=== PATIENT | male | born 1955 | race Caucasian/White ===

== ENCOUNTER 2016-06-02 23:44 | Inpatient (IN) | payer MEDICAID ==
[~2016-06-02] VITALS: Ht 182.9 cm; Wt 97.7 kg
[~2016-06-02 23:44] MED LIST: ALPR-475; AMLO10TA2 PO; AMLO5TAB2 PO; AMOX1TAB64 PO; ASPI81TA18 PO; AZIT-14 PO; AZIT500T4 PO; BACL-19 PO; BUPR1FIL5; BUPR1FIL5 SL; BUPR1TAB2; CEFD300C2 PO; DOXY100T PO; FLUT1DIS3 INH; FOLI-17; FURO-93 PO; FURO20TA3 PO; GLIP5TAB10 PO; HYDR-3240 PO; IPRA3AMP NEB; IPRA3AMP NPPB; LISI-167 PO; LISI-424 PO; LISI20TA; LORA-445 PO; METF500T4 PO; METO-93 PO; METO25TA91; NICO1PAT5 TD; POTA20TA89 PO; PRED10TA PO; PRED20TA PO; SIMV20TA3; SULF1TAB24 PO; TIOT18CA INH; potassium
[2016-06-02] MEDS ORDERED: SODIUM CHLORIDE 0.9% 1,000 ML IV ONE (23:54)
[2016-06-03] MEDS ORDERED: SODIUM CHLORIDE FLUSH 10ML SYR IVF ONE
[2016-06-03] MEDS ORDERED: methylPREDNISolone SOD SUCC 125 MG/2 ML IVP ONE
[2016-06-03] MEDS ORDERED: MORPHINE SULFATE 4 MG/ML, 1ML IVPush PRN
[2016-06-03] MEDS ORDERED: AZITHROMYCIN 500 MG in SODIUM CHLORIDE 0.9% 250 ML IVPB ONE
[2016-06-03] MEDS ORDERED: ONDANSETRON 2MG/ML, 2ML ONE (00:09)
[2016-06-03] MEDS ORDERED: methylPREDNISolone SOD SUCC 125 MG/2 ML ONE (00:09)
[2016-06-03] MEDS ORDERED: MORPHINE SULFATE 4 MG/ML, 1ML ONE (00:09)
[2016-06-03] MEDS ORDERED: ONDANSETRON 2MG/ML, 2ML IVPush ONE (00:30)
[2016-06-03] MEDS ORDERED: ALBUTEROL/IPRATROPIUM 2.5MG/0.5MG, 3 ML ONE (00:38)
[2016-06-03] MEDS: ALBUTEROL/IPRATROPIUM 2.5MG/0.5MG, 3 ML NPPB SCH ×4 (00:42→15:00)
[2016-06-03 00:51] LABS: ASPARTATE AMINO TRANSFERASE 101 U/L (15-37); BLOOD UREA NITROGEN 12 mg/dL (7-18)
[2016-06-03 01:18] LABS: IS PT STATUS REG ER OR PRE ER? YES
[2016-06-03] MEDS ORDERED: FUROSEMIDE 40 MG/4 ML IV ONE (02:00)
[2016-06-03] MEDS: AZITHROMYCIN 500 MG in SODIUM CHLORIDE 0.9% 250 ML IV SCH (02:25)
[2016-06-03] MEDS: methylPREDNISolone SOD SUCC 125 MG/2 ML IVPush SCH ×4 (02:26→20:47)
[2016-06-03] MEDS ORDERED: ONDANSETRON 2MG/ML, 2ML IVP PRN (02:30)
[2016-06-03] MEDS ORDERED: DOCUSATE 100 MG CAPSULE PO PRN (02:30)
[2016-06-03] MEDS ORDERED: POLYETHYLENE GLYCOL 17 GM PACKET PO PRN (02:30)
[2016-06-03] MEDS ORDERED: LORazepam 2 MG/ML, 1ML IV PRN (02:30)
[2016-06-03] MEDS ORDERED: BISACODYL 10 MG SUPP PR PRN (02:30)
[2016-06-03] MEDS ORDERED: LORazepam 0.5MG TABLET PO PRN (02:30)
[2016-06-03] MEDS ORDERED: GUAIFENESIN/DM 200-20MG, 10ML UDC PO PRN (02:30)
[2016-06-03] MEDS ORDERED: LORazepam 1MG TABLET PO PRN ×4 (02:30)
[2016-06-03 04:14] VITALS: BP 134/76
[2016-06-03] MEDS: NICOTINE 21 MG/24 HR PATCH.TD24 TD SCH (04:26)
[2016-06-03 04:33] LABS: DAU SCREEN DISCLAIMER
[2016-06-03 04:43] LABS: PATH.CAST-FLAG NOT PRESENT; SPERM-FLAG NOT PRESENT; SRC-FLAG NOT PRESENT; XTAL-FLAG NOT PRESENT; YLC-FLAG NOT PRESENT
[2016-06-03 04:55] LABS: POTASSIUM,URINE RANDOM 24 mmol/L
[2016-06-03] MEDS ORDERED: ALBUTEROL/IPRATROPIUM 2.5MG/0.5MG, 3 ML NPPB PRN (06:00)
[2016-06-03] MEDS: HYDROcodone/APAP 5/325 TABLET PO PRN ×2 (06:16→23:19)
[2016-06-03 07:01] VITALS: BP 120/71
[2016-06-03 08:57] LABS: RAPID INFLUENZA A Negative (Negative); RAPID INFLUENZA B Negative (Negative)
[2016-06-03] MEDS ORDERED: BACLOFEN 10 MG TABLET PO SCH (09:00)
[2016-06-03] MEDS: SODIUM CHLORIDE FLUSH 10ML SYR IVF SCH ×2 (09:00→21:07)
[2016-06-03] MEDS: MULTIVITAMINS/MINERALS TABLET PO SCH (09:28)
[2016-06-03] MEDS: FOLIC ACID 1 MG TABLET PO SCH (09:28)
[2016-06-03] MEDS: AMLODIPINE 5 MG TABLET PO SCH (09:28)
[2016-06-03] MEDS: ASPIRIN 81 MG TABLET CHEW PO SCH (09:28)
[2016-06-03] MEDS: FAMOTIDINE 20 MG/2 ML IV SCH ×2 (09:29→20:47)
[2016-06-03] MEDS: LISINOPRIL 10 MG TABLET PO SCH ×2 (09:29→20:48)
[2016-06-03] MEDS: THIAMINE 100MG TABLET PO SCH (09:29)
[2016-06-03] MEDS: METOPROLOL SUCCINATE 50 MG TAB.ER.24H PO SCH ×2 (09:29→20:48)
[2016-06-03] MEDS: FUROSEMIDE 40 MG/4 ML IV SCH (09:29)
[2016-06-03] MEDS: LORazepam 2 MG/ML, 1ML IV PRN ×6 (10:10→23:20)
[2016-06-03 11:19] VITALS: BP 152/81
[2016-06-03] MEDS: CHLORDIAZEPOXIDE 25 MG CAPSULE PO SCH ×3 (11:48→21:07)
[2016-06-03] MEDS: FLUTICASONE/VILANTEROL 200-25MCG/INH INH SCH (11:48)
[2016-06-03 14:30] VITALS: BP 142/87
[2016-06-03 19:58] VITALS: BP 164/96
[2016-06-04] MEDS: LORazepam 2 MG/ML, 1ML IV PRN ×12 (00:31→23:33)
[2016-06-04 01:15] VITALS: BP 165/98
[2016-06-04] MEDS: ACETAMINOPHEN 325 MG TABLET PO PRN (01:19)
[2016-06-04 01:25] VITALS: BP 162/79
[2016-06-04] MEDS: NICOTINE 21 MG/24 HR PATCH.TD24 TD SCH (02:27)
[2016-06-04] MEDS: AZITHROMYCIN 500 MG in SODIUM CHLORIDE 0.9% 250 ML IV SCH (02:27)
[2016-06-04] MEDS: methylPREDNISolone SOD SUCC 125 MG/2 ML IVPush SCH ×4 (02:27→20:21)
[2016-06-04 05:20] LABS: BLOOD UREA NITROGEN 32 mg/dL (7-18)
[2016-06-04 05:25] LABS: ASPARTATE AMINO TRANSFERASE 66 U/L (15-37)
[2016-06-04] MEDS: ALBUTEROL/IPRATROPIUM 2.5MG/0.5MG, 3 ML NPPB SCH ×5 (05:30→19:36)
[2016-06-04] MEDS: HYDROcodone/APAP 5/325 TABLET PO PRN ×4 (05:44→16:26)
[2016-06-04 06:07] LABS: DIFF TOTAL CELLS COUNTED 100 CELL DIFF
[2016-06-04 06:09] LABS: VERIFY COUNTS? YES
[2016-06-04 06:10] LABS: LARGE PLATELETS 1+
[2016-06-04 08:15] VITALS: BP 165/96
[2016-06-04] MEDS: FUROSEMIDE 40 MG/4 ML IV SCH (09:00)
[2016-06-04] MEDS: MULTIVITAMINS/MINERALS TABLET PO SCH (09:00)
[2016-06-04] MEDS: ASPIRIN 81 MG TABLET CHEW PO SCH (09:00)
[2016-06-04] MEDS: FAMOTIDINE 20 MG/2 ML IV SCH ×2 (09:00→20:21)
[2016-06-04] MEDS: CHLORDIAZEPOXIDE 25 MG CAPSULE PO SCH ×3 (09:01→20:28)
[2016-06-04] MEDS: SODIUM CHLORIDE FLUSH 10ML SYR IVF SCH ×2 (09:01→20:28)
[2016-06-04] MEDS: FLUTICASONE/VILANTEROL 200-25MCG/INH INH SCH (09:01)
[2016-06-04] MEDS: FOLIC ACID 1 MG TABLET PO SCH (09:01)
[2016-06-04] MEDS: THIAMINE 100MG TABLET PO SCH (09:02)
[2016-06-04] MEDS: LISINOPRIL 10 MG TABLET PO SCH ×2 (09:02→20:28)
[2016-06-04] MEDS: AMLODIPINE 5 MG TABLET PO SCH (09:02)
[2016-06-04] MEDS: METOPROLOL SUCCINATE 50 MG TAB.ER.24H PO SCH ×2 (09:02→20:28)
[2016-06-04] MEDS ORDERED: cloniDINE 0.1MG PATCH TD SCH (14:30)
[2016-06-04 14:45] VITALS: BP 152/90
[2016-06-04 19:03] VITALS: BP 154/91
[2016-06-05 01:03] VITALS: BP 164/104
[2016-06-05] MEDS: LORazepam 2 MG/ML, 1ML IV PRN ×12 (01:17→22:45)
[2016-06-05] MEDS: AZITHROMYCIN 500 MG in SODIUM CHLORIDE 0.9% 250 ML IV SCH (02:21)
[2016-06-05] MEDS: methylPREDNISolone SOD SUCC 125 MG/2 ML IVPush SCH ×3 (02:21→16:30)
[2016-06-05] MEDS: NICOTINE 21 MG/24 HR PATCH.TD24 TD SCH (02:22)
[2016-06-05 04:00] VITALS: BP 165/112
[2016-06-05] MEDS: CHLORDIAZEPOXIDE 25 MG CAPSULE PO SCH ×4 (04:59→20:35)
[2016-06-05 05:01] LABS: BLOOD UREA NITROGEN 42 mg/dL (7-18)
[2016-06-05] MEDS: hydrALAzine 20 MG/ML, 1ML IV PRN ×2 (05:01→22:36)
[2016-06-05 05:07] LABS: ASPARTATE AMINO TRANSFERASE 45 U/L (15-37)
[2016-06-05 06:11] LABS: DIFF TOTAL CELLS COUNTED 100 CELL DIFF
[2016-06-05 06:14] LABS: VERIFY COUNTS? YES
[2016-06-05 06:20] LABS: GIANT PLATELETS 1+; LARGE PLATELETS 1+
[2016-06-05] MEDS: ALBUTEROL/IPRATROPIUM 2.5MG/0.5MG, 3 ML NPPB SCH ×4 (07:00→20:40)
[2016-06-05 07:30] VITALS: BP 149/78
[2016-06-05] MEDS: FAMOTIDINE 20 MG/2 ML IV SCH ×2 (08:13→20:35)
[2016-06-05] MEDS: FLUTICASONE/VILANTEROL 200-25MCG/INH INH SCH (08:13)
[2016-06-05] MEDS: LISINOPRIL 10 MG TABLET PO SCH ×2 (08:14→20:35)
[2016-06-05] MEDS: SODIUM CHLORIDE FLUSH 10ML SYR IVF SCH ×2 (08:14→21:00)
[2016-06-05] MEDS: AMLODIPINE 5 MG TABLET PO SCH ×2 (08:14→09:00)
[2016-06-05] MEDS: THIAMINE 100MG TABLET PO SCH ×2 (08:14→09:00)
[2016-06-05] MEDS: METOPROLOL SUCCINATE 50 MG TAB.ER.24H PO SCH ×3 (08:14→20:35)
[2016-06-05] MEDS: ASPIRIN 81 MG TABLET CHEW PO SCH ×2 (08:14→09:00)
[2016-06-05] MEDS: MULTIVITAMINS/MINERALS TABLET PO SCH ×2 (08:14→09:00)
[2016-06-05] MEDS: FOLIC ACID 1 MG TABLET PO SCH ×2 (08:14→09:00)
[2016-06-05] MEDS ORDERED: FUROSEMIDE 20 MG/2 ML IV SCH (09:00)
[2016-06-05] MEDS ORDERED: FUROSEMIDE 20 MG TABLET PO SCH (09:00)
[2016-06-05 09:08] VITALS: BP 138/80
[2016-06-05] MEDS: FOLIC ACID 1 MG, THIAMINE 100 MG, MVI ADULT 10 ML in D5%-0.9% NACL 1,000 ML IV SCH (11:09)
[2016-06-05] MEDS: HYDROcodone/APAP 5/325 TABLET PO PRN (12:24)
[2016-06-05] MEDS: GABAPENTIN 300 MG CAPSULE PO SCH ×2 (15:33→21:00)
[2016-06-05] MEDS: HALOPERIDOL 5 MG/ML IV PRN (16:30)
[2016-06-05 17:16] VITALS: BP 166/103
[2016-06-05 19:55] VITALS: BP 134/89
[2016-06-06] MEDS: LORazepam 2 MG/ML, 1ML IV PRN ×6 (00:37→05:54)
[2016-06-06] MEDS: methylPREDNISolone SOD SUCC 125 MG/2 ML IVPush SCH ×3 (00:54→15:46)
[2016-06-06] MEDS: NICOTINE 21 MG/24 HR PATCH.TD24 TD SCH (02:30)
[2016-06-06] MEDS: hydrALAzine 20 MG/ML, 1ML IV PRN ×3 (03:38→13:26)
[2016-06-06 05:20] LABS: BLOOD UREA NITROGEN 40 mg/dL (7-18)
[2016-06-06] MEDS: CHLORDIAZEPOXIDE 25 MG CAPSULE PO SCH ×5 (05:50→20:30)
[2016-06-06] MEDS: ALBUTEROL/IPRATROPIUM 2.5MG/0.5MG, 3 ML NPPB SCH ×4 (06:35→18:45)
[2016-06-06] MEDS: DIAZEPAM 5 MG/ML, 2ML IV SCH ×3 (07:33→19:45)
[2016-06-06] MEDS: HYDROcodone/APAP 5/325 TABLET PO PRN ×2 (08:17→20:21)
[2016-06-06] MEDS: AZITHROMYCIN 500 MG TABLET PO SCH (08:17)
[2016-06-06] MEDS: FOLIC ACID 1 MG TABLET PO SCH (08:17)
[2016-06-06] MEDS: PANTOPROZOLE 40MG TABLET PO SCH (08:17)
[2016-06-06] MEDS: THIAMINE 100MG TABLET PO SCH (08:17)
[2016-06-06] MEDS: GABAPENTIN 300 MG CAPSULE PO SCH ×4 (08:17→20:30)
[2016-06-06] MEDS: METOPROLOL SUCCINATE 50 MG TAB.ER.24H PO SCH ×2 (08:18→20:30)
[2016-06-06] MEDS: FLUTICASONE/VILANTEROL 200-25MCG/INH INH SCH (08:18)
[2016-06-06] MEDS: SODIUM CHLORIDE FLUSH 10ML SYR IVF SCH ×2 (08:18→20:35)
[2016-06-06] MEDS: LISINOPRIL 10 MG TABLET PO SCH ×2 (08:18→20:30)
[2016-06-06] MEDS: LACTULOSE 20 GM/30 ML UDC PO SCH (08:18)
[2016-06-06] MEDS: ASPIRIN 81 MG TABLET CHEW PO SCH (08:18)
[2016-06-06] MEDS: AMLODIPINE 5 MG TABLET PO SCH (08:20)
[2016-06-06] MEDS: MULTIVITAMINS/MINERALS TABLET PO SCH (08:20)
[2016-06-06] MEDS: FOLIC ACID 1 MG, THIAMINE 100 MG, MVI ADULT 10 ML in D5%-0.9% NACL 1,000 ML IV SCH ×2 (10:00→19:45)
[2016-06-06] MEDS: HALOPERIDOL 5 MG/ML IV PRN ×2 (10:08→16:00)
[2016-06-06] MEDS: SODIUM CHLORIDE 0.9% 1,000 ML IV SCH ×2 (10:15→19:30)
[2016-06-06] MEDS ORDERED: METOPROLOL 1 MG/ML, 5ML IVPush ONE (10:30)
[2016-06-06] MEDS: LORazepam 2 MG/ML, 1ML IVPush PRN ×5 (10:54→23:03)
[2016-06-06] MEDS: ZIPRASIDONE 20 MG INJ IM PRN ×2 (11:22→17:57)
[2016-06-06 12:29] LABS: ABG COLLECTION SITE LEFT RADIAL; COLLATERAL CIRCULATION TESTING NORMAL
[2016-06-07] MEDS: methylPREDNISolone SOD SUCC 125 MG/2 ML IVPush SCH ×3 (00:20→16:46)
[2016-06-07] MEDS: DIAZEPAM 5 MG/ML, 2ML IV SCH ×4 (02:10→19:30)
[2016-06-07] MEDS: NICOTINE 21 MG/24 HR PATCH.TD24 TD SCH (02:13)
[2016-06-07] MEDS: hydrALAzine 20 MG/ML, 1ML IV PRN (03:27)
[2016-06-07] MEDS: LORazepam 2 MG/ML, 1ML IVPush PRN (05:03)
[2016-06-07] MEDS: SODIUM CHLORIDE 0.9% 1,000 ML IV SCH ×2 (05:30→15:45)
[2016-06-07] MEDS: CHLORDIAZEPOXIDE 25 MG CAPSULE PO SCH ×2 (06:00→11:00)
[2016-06-07] MEDS: ALBUTEROL/IPRATROPIUM 2.5MG/0.5MG, 3 ML NPPB SCH ×4 (07:15→18:36)
[2016-06-07] MEDS: PANTOPROZOLE 40MG TABLET PO SCH (07:30)
[2016-06-07 08:40] LABS: ABG COLLECTION SITE RIGHT RADIAL; COLLATERAL CIRCULATION TESTING NORMAL; FIO2 70 %
[2016-06-07] MEDS: THIAMINE 100MG TABLET PO SCH (09:00)
[2016-06-07] MEDS: ASPIRIN 81 MG TABLET CHEW PO SCH (09:00)
[2016-06-07] MEDS: AZITHROMYCIN 500 MG TABLET PO SCH (09:00)
[2016-06-07] MEDS: MULTIVITAMINS/MINERALS TABLET PO SCH (09:00)
[2016-06-07] MEDS: AMLODIPINE 5 MG TABLET PO SCH (09:00)
[2016-06-07] MEDS: LACTULOSE 20 GM/30 ML UDC PO SCH (09:00)
[2016-06-07] MEDS: FOLIC ACID 1 MG TABLET PO SCH (09:00)
[2016-06-07] MEDS: FLUTICASONE/VILANTEROL 200-25MCG/INH INH SCH (09:00)
[2016-06-07] MEDS: METOPROLOL SUCCINATE 50 MG TAB.ER.24H PO SCH ×2 (09:00→21:07)
[2016-06-07] MEDS: GABAPENTIN 300 MG CAPSULE PO SCH ×3 (09:00→21:08)
[2016-06-07] MEDS: LISINOPRIL 10 MG TABLET PO SCH ×2 (09:00→21:07)
[2016-06-07] MEDS: SODIUM CHLORIDE FLUSH 10ML SYR IVF SCH ×2 (09:51→21:07)
[2016-06-07] MEDS: CHLORDIAZEPOXIDE 10 MG CAPSULE PO SCH ×2 (15:45→21:08)
[2016-06-07] MEDS: HYDROcodone/APAP 5/325 TABLET PO PRN (15:45)
[2016-06-08] MEDS: methylPREDNISolone SOD SUCC 125 MG/2 ML IVPush SCH ×3 (00:36→18:06)
[2016-06-08] MEDS: hydrALAzine 20 MG/ML, 1ML IV PRN ×4 (00:36→23:18)
[2016-06-08] MEDS: SODIUM CHLORIDE 0.9% 1,000 ML IV SCH (00:58)
[2016-06-08] MEDS: NICOTINE 21 MG/24 HR PATCH.TD24 TD SCH (02:14)
[2016-06-08] MEDS: DIAZEPAM 5 MG/ML, 2ML IV SCH ×4 (02:15→19:23)
[2016-06-08] MEDS: CHLORDIAZEPOXIDE 10 MG CAPSULE PO SCH ×4 (05:59→20:18)
[2016-06-08] MEDS: PANTOPROZOLE 40MG TABLET PO SCH (08:00)
[2016-06-08 08:53] LABS: BLOOD UREA NITROGEN 38 mg/dL (7-18)
[2016-06-08] MEDS: LACTULOSE 20 GM/30 ML UDC PO SCH (09:00)
[2016-06-08] MEDS: THIAMINE 100MG TABLET PO SCH (09:00)
[2016-06-08] MEDS: AZITHROMYCIN 500 MG TABLET PO SCH (09:00)
[2016-06-08] MEDS: ASPIRIN 81 MG TABLET CHEW PO SCH (09:00)
[2016-06-08] MEDS: MULTIVITAMINS/MINERALS TABLET PO SCH (09:00)
[2016-06-08] MEDS: SODIUM CHLORIDE FLUSH 10ML SYR IVF SCH ×2 (09:00→19:23)
[2016-06-08] MEDS: ALBUTEROL/IPRATROPIUM 2.5MG/0.5MG, 3 ML NPPB SCH ×4 (09:00→20:00)
[2016-06-08] MEDS: GABAPENTIN 300 MG CAPSULE PO SCH ×3 (09:00→20:18)
[2016-06-08] MEDS: AMLODIPINE 5 MG TABLET PO SCH (09:00)
[2016-06-08] MEDS: LISINOPRIL 10 MG TABLET PO SCH ×2 (09:00→20:18)
[2016-06-08] MEDS: FOLIC ACID 1 MG TABLET PO SCH (09:00)
[2016-06-08] MEDS: FLUTICASONE/VILANTEROL 200-25MCG/INH INH SCH (09:00)
[2016-06-08] MEDS: METOPROLOL SUCCINATE 50 MG TAB.ER.24H PO SCH ×2 (09:00→20:17)
[2016-06-08] MEDS ORDERED: MORPHINE SULFATE 4 MG/ML, 1ML IVPush PRN (20:00)
[2016-06-08] MEDS: FOLIC ACID 1 MG, THIAMINE 100 MG, MVI ADULT 10 ML in D5%-0.9% NACL 1,000 ML IV SCH (20:20)
[2016-06-08] MEDS: ENALAPRILAT 1.25 MG/ML, 2ML IV PRN (21:29)
[2016-06-08] MEDS: MORPHINE SULFATE 4 MG/ML, 1ML IVPush PRN (23:18)
[2016-06-09] MEDS: DIAZEPAM 5 MG/ML, 2ML IV SCH ×4 (00:56→20:00)
[2016-06-09] MEDS: NICOTINE 21 MG/24 HR PATCH.TD24 TD SCH (00:57)
[2016-06-09] MEDS: methylPREDNISolone SOD SUCC 125 MG/2 ML IVPush SCH ×3 (00:59→15:58)
[2016-06-09] MEDS: LABETALOL 5MG/ML, 20ML IVPush PRN ×2 (01:20→03:36)
[2016-06-09] MEDS: hydrALAzine 20 MG/ML, 1ML IV PRN ×2 (02:26→07:16)
[2016-06-09] MEDS ORDERED: MORPHINE SULFATE 4 MG/ML, 1ML IVPush ONE (02:30)
[2016-06-09] MEDS: CHLORDIAZEPOXIDE 10 MG CAPSULE PO SCH ×4 (03:25→21:24)
[2016-06-09] MEDS: MORPHINE SULFATE 4 MG/ML, 1ML IVPush PRN ×5 (03:35→20:00)
[2016-06-09] MEDS: ENALAPRILAT 1.25 MG/ML, 2ML IV PRN (06:30)
[2016-06-09] MEDS: ALBUTEROL/IPRATROPIUM 2.5MG/0.5MG, 3 ML NPPB SCH ×4 (07:00→20:00)
[2016-06-09] MEDS: FLUTICASONE/VILANTEROL 200-25MCG/INH INH SCH (07:17)
[2016-06-09] MEDS: SODIUM CHLORIDE FLUSH 10ML SYR IVF SCH ×2 (07:17→21:23)
[2016-06-09] MEDS: LISINOPRIL 10 MG TABLET PO SCH ×2 (08:56→21:24)
[2016-06-09] MEDS: THIAMINE 100MG TABLET PO SCH (08:56)
[2016-06-09] MEDS: GABAPENTIN 300 MG CAPSULE PO SCH ×3 (08:56→21:24)
[2016-06-09] MEDS: AZITHROMYCIN 500 MG TABLET PO SCH (08:56)
[2016-06-09] MEDS: FOLIC ACID 1 MG TABLET PO SCH (08:56)
[2016-06-09] MEDS: MULTIVITAMINS/MINERALS TABLET PO SCH (08:56)
[2016-06-09] MEDS: PANTOPROZOLE 40MG TABLET PO SCH (08:56)
[2016-06-09] MEDS: AMLODIPINE 5 MG TABLET PO SCH (08:56)
[2016-06-09] MEDS: ASPIRIN 81 MG TABLET CHEW PO SCH (08:56)
[2016-06-09] MEDS: METOPROLOL SUCCINATE 50 MG TAB.ER.24H PO SCH ×2 (08:57→21:24)
[2016-06-09] MEDS: LACTULOSE 20 GM/30 ML UDC PO SCH (08:57)
[2016-06-09] MEDS ORDERED: FUROSEMIDE 40 MG/4 ML IV ONE (10:00)
[2016-06-09] MEDS: HYDROcodone/APAP 5/325 TABLET PO PRN (10:33)
[2016-06-09] MEDS: FOLIC ACID 1 MG, THIAMINE 100 MG, MVI ADULT 10 ML in D5%-0.9% NACL 1,000 ML IV SCH (14:19)
[2016-06-10] MEDS: MORPHINE SULFATE 4 MG/ML, 1ML IVPush PRN ×2 (00:09→04:40)
[2016-06-10] MEDS: methylPREDNISolone SOD SUCC 125 MG/2 ML IVPush SCH ×2 (00:09→08:08)
[2016-06-10] MEDS: NICOTINE 21 MG/24 HR PATCH.TD24 TD SCH ×2 (00:34→21:00)
[2016-06-10] MEDS: DIAZEPAM 5 MG/ML, 2ML IV SCH ×2 (00:57→08:07)
[2016-06-10] MEDS: hydrALAzine 20 MG/ML, 1ML IV PRN (03:42)
[2016-06-10] MEDS: CHLORDIAZEPOXIDE 10 MG CAPSULE PO SCH ×4 (05:31→21:42)
[2016-06-10] MEDS: ALBUTEROL/IPRATROPIUM 2.5MG/0.5MG, 3 ML NPPB SCH ×4 (06:33→19:41)
[2016-06-10] MEDS: FOLIC ACID 1 MG TABLET PO SCH (08:07)
[2016-06-10] MEDS: PANTOPROZOLE 40MG TABLET PO SCH (08:07)
[2016-06-10] MEDS: ASPIRIN 81 MG TABLET CHEW PO SCH (08:07)
[2016-06-10] MEDS: FLUTICASONE/VILANTEROL 200-25MCG/INH INH SCH (08:08)
[2016-06-10] MEDS: MULTIVITAMINS/MINERALS TABLET PO SCH (08:08)
[2016-06-10] MEDS: METOPROLOL SUCCINATE 50 MG TAB.ER.24H PO SCH ×2 (08:08→21:42)
[2016-06-10] MEDS: LACTULOSE 20 GM/30 ML UDC PO SCH (08:08)
[2016-06-10] MEDS: LISINOPRIL 10 MG TABLET PO SCH ×2 (08:08→21:42)
[2016-06-10] MEDS: GABAPENTIN 300 MG CAPSULE PO SCH ×3 (08:08→21:42)
[2016-06-10] MEDS: SODIUM CHLORIDE FLUSH 10ML SYR IVF SCH ×2 (08:08→21:41)
[2016-06-10] MEDS: AMLODIPINE 5 MG TABLET PO SCH (08:10)
[2016-06-10] MEDS: HYDROcodone/APAP 5/325 TABLET PO PRN ×3 (08:31→20:06)
[2016-06-10] MEDS: THIAMINE 100MG TABLET PO SCH (08:35)
[2016-06-10] MEDS ORDERED: FUROSEMIDE 40 MG/4 ML IV ONE (09:00)
[2016-06-10 19:14] VITALS: BP 145/90
[2016-06-11 02:10] VITALS: BP 134/86
[2016-06-11] MEDS: HYDROcodone/APAP 5/325 TABLET PO PRN ×4 (03:38→23:49)
[2016-06-11] MEDS: ALBUTEROL/IPRATROPIUM 2.5MG/0.5MG, 3 ML NPPB SCH ×4 (06:10→22:00)
[2016-06-11] MEDS: CHLORDIAZEPOXIDE 10 MG CAPSULE PO SCH ×4 (06:27→23:48)
[2016-06-11 06:57] VITALS: BP 120/77
[2016-06-11] MEDS: LORazepam 2 MG/ML, 1ML IVPush PRN ×3 (07:41→23:56)
[2016-06-11] MEDS: SODIUM CHLORIDE FLUSH 10ML SYR IVF SCH ×2 (07:42→23:50)
[2016-06-11] MEDS: LACTULOSE 20 GM/30 ML UDC PO SCH (07:46)
[2016-06-11] MEDS: FOLIC ACID 1 MG TABLET PO SCH (07:46)
[2016-06-11] MEDS: LISINOPRIL 10 MG TABLET PO SCH ×2 (07:46→21:53)
[2016-06-11] MEDS: THIAMINE 100MG TABLET PO SCH (07:46)
[2016-06-11] MEDS: PANTOPROZOLE 40MG TABLET PO SCH (07:46)
[2016-06-11] MEDS: ASPIRIN 81 MG TABLET CHEW PO SCH (07:47)
[2016-06-11] MEDS: GABAPENTIN 300 MG CAPSULE PO SCH ×3 (07:47→23:48)
[2016-06-11] MEDS: MULTIVITAMINS/MINERALS TABLET PO SCH (07:47)
[2016-06-11] MEDS: AMLODIPINE 5 MG TABLET PO SCH (07:47)
[2016-06-11] MEDS: FLUTICASONE/VILANTEROL 200-25MCG/INH INH SCH (07:47)
[2016-06-11] MEDS: METOPROLOL SUCCINATE 50 MG TAB.ER.24H PO SCH ×2 (07:47→21:53)
[2016-06-11 13:53] LABS: ABG COLLECTION SITE RIGHT RADIAL; COLLATERAL CIRCULATION TESTING NORMAL
[2016-06-11 14:09] VITALS: BP 105/69
[2016-06-11] MEDS ORDERED: VANCOMYCIN PER PHARMACY MC PRN (15:00)
[2016-06-11] MEDS ORDERED: PHARMACOKINETIC MONITORING MC PRN (15:30)
[2016-06-11] MEDS ORDERED: PHARMACOKINETIC CONSULTATION MC ONE (15:30)
[2016-06-11] MEDS: PIPERACILLIN/TAZO/PMX 4.5GM 100 ML IV SCH ×2 (15:42→20:57)
[2016-06-11] MEDS: VANCOMYCIN 1,900 MG in SODIUM CHLORIDE 0.9% 250 ML IV SCH (16:24)
[2016-06-11 16:45] LABS: BLOOD UREA NITROGEN 56 mg/dL (7-18)
[2016-06-11 16:59] LABS: DIFF TOTAL CELLS COUNTED 100 CELL DIFF
[2016-06-11 17:12] LABS: VERIFY COUNTS? YES
[2016-06-11] MEDS ORDERED: FUROSEMIDE 40 MG/4 ML ONE (18:43)
[2016-06-11] MEDS ORDERED: FUROSEMIDE 40 MG/4 ML IV ONE (19:00)
[2016-06-11] MEDS ORDERED: SUCCINYLCHOLINE 20 MG/ML, 10ML IVPush ONE (20:30)
[2016-06-11] MEDS ORDERED: MIDAZOLAM 1 MG/ML, 5ML IVPush ONE (20:30)
[2016-06-11] MEDS ORDERED: MIDAZOLAM 1 MG/ML, 5ML ONE (21:00)
[2016-06-11] MEDS ORDERED: ETOMIDATE 20 MG/10 ML ONE (21:00)
[2016-06-11] MEDS ORDERED: PROPOFOL 10 MG/ML, 100ML IV ONE (21:00)
[2016-06-11] MEDS ORDERED: LIDOCAINE-MPF 1%, 2ML ENDO PRN (21:00)
[2016-06-11] MEDS ORDERED: ETOMIDATE 20 MG/10 ML IVPush ONE (21:00)
[2016-06-11] MEDS: PROPOFOL 100 ML IV PRN ×2 (21:02→23:32)
[2016-06-11] MEDS: NOREPINEPHRINE 4 MG in SODIUM CHLORIDE 0.9% 246 ML IV PRN (21:47)
[2016-06-11] MEDS: NICOTINE 21 MG/24 HR PATCH.TD24 TD SCH (23:49)
[2016-06-12] MEDS: PIPERACILLIN/TAZO/PMX 4.5GM 100 ML IV SCH ×4 (02:20→20:09)
[2016-06-12] MEDS: PROPOFOL 100 ML IV PRN ×4 (02:29→20:16)
[2016-06-12] MEDS: ALBUTEROL/IPRATROPIUM 2.5MG/0.5MG, 3 ML NPPB SCH ×6 (03:00→22:39)
[2016-06-12 04:37] VITALS: BP 108/60
[2016-06-12 05:20] LABS: ABG COLLECTION SITE LEFT RADIAL; COLLATERAL CIRCULATION TESTING NORMAL
[2016-06-12 06:30] LABS: BLOOD UREA NITROGEN 55 mg/dL (7-18)
[2016-06-12] MEDS: CHLORDIAZEPOXIDE 10 MG CAPSULE PO SCH (06:33)
[2016-06-12] MEDS: NOREPINEPHRINE 4 MG in SODIUM CHLORIDE 0.9% 246 ML IV PRN (06:46)
[2016-06-12] MEDS ORDERED: POTASSIUM CHLORIDE 10% 40 MEQ/30 ML UDC PO ONE (07:30)
[2016-06-12] MEDS: PANTOPROZOLE 40MG TABLET PO SCH (07:30)
[2016-06-12 07:34] LABS: DIFF TOTAL CELLS COUNTED 100 CELL DIFF
[2016-06-12 07:36] LABS: LARGE PLATELETS 1+
[2016-06-12 07:37] LABS: VERIFY COUNTS? YES
[2016-06-12] MEDS: FLUTICASONE/VILANTEROL 200-25MCG/INH INH SCH (08:49)
[2016-06-12] MEDS: AMLODIPINE 5 MG TABLET PO SCH (09:00)
[2016-06-12] MEDS: LACTULOSE 20 GM/30 ML UDC PO SCH (09:06)
[2016-06-12] MEDS: ASPIRIN 81 MG TABLET CHEW PO SCH (09:06)
[2016-06-12] MEDS: GABAPENTIN 300 MG CAPSULE PO SCH ×3 (09:06→20:09)
[2016-06-12] MEDS: PANTOPRAZOLE 40 MG IV IVPush SCH (09:06)
[2016-06-12] MEDS: LISINOPRIL 10 MG TABLET PO SCH ×2 (09:07→19:58)
[2016-06-12] MEDS: METOPROLOL SUCCINATE 50 MG TAB.ER.24H PO SCH ×2 (09:07→19:58)
[2016-06-12] MEDS: FOLIC ACID 1 MG TABLET PO SCH (09:07)
[2016-06-12] MEDS: MULTIVITAMINS/MINERALS TABLET PO SCH (09:07)
[2016-06-12] MEDS: SODIUM CHLORIDE FLUSH 10ML SYR IVF SCH ×2 (09:07→20:09)
[2016-06-12] MEDS: THIAMINE 100MG TABLET PO SCH (09:07)
[2016-06-12] MEDS: VANCOMYCIN 1,900 MG in SODIUM CHLORIDE 0.9% 250 ML IV SCH (10:22)
[2016-06-12] MEDS: ACETAMINOPHEN 325 MG TABLET PO PRN (12:28)
[2016-06-12] MEDS: MORPHINE SULFATE 4 MG/ML, 1ML IVPush PRN ×2 (13:50→20:06)
[2016-06-12] MEDS: NICOTINE 21 MG/24 HR PATCH.TD24 TD SCH (20:09)
[2016-06-13] MEDS: ACETAMINOPHEN 325 MG TABLET PO PRN (00:08)
[2016-06-13] MEDS: MORPHINE SULFATE 4 MG/ML, 1ML IVPush PRN ×5 (00:36→20:44)
[2016-06-13] MEDS: ALBUTEROL/IPRATROPIUM 2.5MG/0.5MG, 3 ML NPPB SCH ×6 (01:56→22:54)
[2016-06-13] MEDS: PIPERACILLIN/TAZO/PMX 4.5GM 100 ML IV SCH ×4 (03:07→20:41)
[2016-06-13 05:11] LABS: ABG COLLECTION SITE RIGHT RADIAL; COLLATERAL CIRCULATION TESTING NORMAL
[2016-06-13 06:00] VITALS: BP 110/65
[2016-06-13 06:57] LABS: DIFF TOTAL CELLS COUNTED 100 CELL DIFF
[2016-06-13 06:59] LABS: VERIFY COUNTS? YES
[2016-06-13 07:01] LABS: LARGE PLATELETS 1+
[2016-06-13 07:03] LABS: BLOOD UREA NITROGEN 52 mg/dL (7-18)
[2016-06-13] MEDS: PROPOFOL 100 ML IV PRN ×3 (07:15→21:31)
[2016-06-13] MEDS: PANTOPRAZOLE 40 MG IV IVPush SCH (08:51)
[2016-06-13] MEDS: GABAPENTIN 300 MG CAPSULE PO SCH ×3 (08:52→20:41)
[2016-06-13] MEDS: MULTIVITAMINS/MINERALS TABLET PO SCH (08:52)
[2016-06-13] MEDS: SODIUM CHLORIDE FLUSH 10ML SYR IVF SCH ×2 (08:52→21:29)
[2016-06-13] MEDS: THIAMINE 100MG TABLET PO SCH (08:52)
[2016-06-13] MEDS: FOLIC ACID 1 MG TABLET PO SCH (08:52)
[2016-06-13] MEDS: ASPIRIN 81 MG TABLET CHEW PO SCH (08:52)
[2016-06-13] MEDS: VANCOMYCIN 1,900 MG in SODIUM CHLORIDE 0.9% 250 ML IV SCH (10:35)
[2016-06-13] MEDS: NOREPINEPHRINE 4 MG in SODIUM CHLORIDE 0.9% 246 ML IV PRN (17:43)
[2016-06-13] MEDS: NICOTINE 21 MG/24 HR PATCH.TD24 TD SCH (20:42)
[2016-06-13 23:48] LABS: ABG COLLECTION SITE RIGHT BRACHIAL
[2016-06-14] MEDS: LORazepam 2 MG/ML, 1ML IVPush PRN ×2 (00:57→07:53)
[2016-06-14] MEDS: MORPHINE SULFATE 4 MG/ML, 1ML IVPush PRN ×2 (00:57→07:53)
[2016-06-14] MEDS: HYDROcodone/APAP 5/325 TABLET PO PRN ×2 (01:48→11:01)
[2016-06-14] MEDS: PROPOFOL 100 ML IV PRN ×3 (02:22→18:34)
[2016-06-14] MEDS: ALBUTEROL/IPRATROPIUM 2.5MG/0.5MG, 3 ML NPPB SCH ×6 (02:34→23:15)
[2016-06-14 04:32] LABS: ABG COLLECTION SITE RIGHT RADIAL; COLLATERAL CIRCULATION TESTING NORMAL
[2016-06-14] MEDS: PIPERACILLIN/TAZO/PMX 4.5GM 100 ML IV SCH ×4 (04:51→21:48)
[2016-06-14 08:33] LABS: BLOOD UREA NITROGEN 48 mg/dL (7-18)
[2016-06-14] MEDS: PANTOPRAZOLE 40 MG IV IVPush SCH (09:40)
[2016-06-14] MEDS: GABAPENTIN 300 MG CAPSULE PO SCH ×3 (09:40→21:47)
[2016-06-14] MEDS: ASPIRIN 81 MG TABLET CHEW PO SCH (09:40)
[2016-06-14] MEDS: SODIUM CHLORIDE FLUSH 10ML SYR IVF SCH ×2 (09:41→21:00)
[2016-06-14] MEDS: FOLIC ACID 1 MG TABLET PO SCH (09:41)
[2016-06-14] MEDS: MULTIVITAMINS/MINERALS TABLET PO SCH (09:41)
[2016-06-14] MEDS: THIAMINE 100MG TABLET PO SCH (09:41)
[2016-06-14] MEDS: VANCOMYCIN 1,900 MG in SODIUM CHLORIDE 0.9% 250 ML IV SCH (10:16)
[2016-06-14] MEDS: NICOTINE 21 MG/24 HR PATCH.TD24 TD SCH (21:48)
[2016-06-15] MEDS: ALBUTEROL/IPRATROPIUM 2.5MG/0.5MG, 3 ML NPPB SCH ×6 (01:37→22:50)
[2016-06-15] MEDS: PROPOFOL 100 ML IV PRN ×3 (02:49→16:46)
[2016-06-15] MEDS: PIPERACILLIN/TAZO/PMX 4.5GM 100 ML IV SCH ×4 (02:50→20:43)
[2016-06-15] MEDS: MORPHINE SULFATE 4 MG/ML, 1ML IVPush PRN ×4 (02:53→22:52)
[2016-06-15 04:51] LABS: ABG COLLECTION SITE RIGHT RADIAL; COLLATERAL CIRCULATION TESTING NORMAL
[2016-06-15 05:07] VITALS: BP 103/66
[2016-06-15] MEDS: SODIUM CHLORIDE FLUSH 10ML SYR IVF SCH ×2 (09:01→20:43)
[2016-06-15] MEDS: PANTOPRAZOLE 40 MG IV IVPush SCH (09:01)
[2016-06-15] MEDS: ASPIRIN 81 MG TABLET CHEW PO SCH (09:02)
[2016-06-15] MEDS: FOLIC ACID 1 MG TABLET PO SCH (09:02)
[2016-06-15] MEDS: GABAPENTIN 300 MG CAPSULE PO SCH ×3 (09:02→20:43)
[2016-06-15] MEDS: THIAMINE 100MG TABLET PO SCH (09:03)
[2016-06-15] MEDS: MULTIVITAMINS/MINERALS TABLET PO SCH (09:03)
[2016-06-15] MEDS: NICOTINE 21 MG/24 HR PATCH.TD24 TD SCH (20:43)
[2016-06-15] MEDS: VANCOMYCIN 1,900 MG in SODIUM CHLORIDE 0.9% 250 ML IV SCH (22:09)
[2016-06-16] MEDS: PROPOFOL 100 ML IV PRN ×5 (00:12→19:29)
[2016-06-16] MEDS: MORPHINE SULFATE 4 MG/ML, 1ML IVPush PRN ×2 (02:22→06:10)
[2016-06-16] MEDS: PIPERACILLIN/TAZO/PMX 4.5GM 100 ML IV SCH ×4 (02:22→21:07)
[2016-06-16] MEDS: ALBUTEROL/IPRATROPIUM 2.5MG/0.5MG, 3 ML NPPB SCH ×6 (03:00→22:04)
[2016-06-16 04:50] VITALS: BP 134/67
[2016-06-16 05:31] LABS: ABG COLLECTION SITE RIGHT RADIAL; COLLATERAL CIRCULATION TESTING NORMAL
[2016-06-16] MEDS: LORazepam 2 MG/ML, 1ML IVPush PRN ×2 (06:10→10:25)
[2016-06-16 08:39] LABS: ASPARTATE AMINO TRANSFERASE 41 U/L (15-37); BLOOD UREA NITROGEN 33 mg/dL (7-18)
[2016-06-16] MEDS: ASPIRIN 81 MG TABLET CHEW PO SCH (08:58)
[2016-06-16] MEDS: GABAPENTIN 300 MG CAPSULE PO SCH ×3 (08:58→21:07)
[2016-06-16] MEDS: SODIUM CHLORIDE FLUSH 10ML SYR IVF SCH ×2 (08:58→21:07)
[2016-06-16] MEDS: PANTOPRAZOLE 40 MG IV IVPush SCH (08:58)
[2016-06-16] MEDS: MULTIVITAMINS/MINERALS TABLET PO SCH (08:58)
[2016-06-16] MEDS: THIAMINE 100MG TABLET PO SCH (08:58)
[2016-06-16] MEDS: FOLIC ACID 1 MG TABLET PO SCH (08:58)
[2016-06-16] MEDS: NICOTINE 21 MG/24 HR PATCH.TD24 TD SCH (21:07)
[2016-06-17] MEDS: ALBUTEROL/IPRATROPIUM 2.5MG/0.5MG, 3 ML NPPB SCH ×6 (01:44→22:21)
[2016-06-17] MEDS: PROPOFOL 100 ML IV PRN ×4 (01:48→18:21)
[2016-06-17] MEDS: PIPERACILLIN/TAZO/PMX 4.5GM 100 ML IV SCH ×4 (03:11→21:40)
[2016-06-17 04:48] LABS: ABG COLLECTION SITE LEFT RADIAL; COLLATERAL CIRCULATION TESTING NORMAL
[2016-06-17 06:08] LABS: SRA, LOW DOSE HEPARIN 93 % (0-20)
[2016-06-17 06:24] VITALS: BP 152/82
[2016-06-17] MEDS ORDERED: DOCUSATE 100 MG CAPSULE PO SCH (09:00)
[2016-06-17] MEDS ORDERED: SCOPOLAMINE PATCH, 1.5MG PATCH.TD72 TD SCH (09:00)
[2016-06-17] MEDS: PANTOPRAZOLE 40 MG IV IVPush SCH (09:28)
[2016-06-17] MEDS: ASPIRIN 81 MG TABLET CHEW PO SCH (09:28)
[2016-06-17] MEDS: THIAMINE 100MG TABLET PO SCH (09:29)
[2016-06-17] MEDS: FOLIC ACID 1 MG TABLET PO SCH (09:29)
[2016-06-17] MEDS: GABAPENTIN 300 MG CAPSULE PO SCH ×3 (09:29→21:40)
[2016-06-17] MEDS: MULTIVITAMINS/MINERALS TABLET PO SCH (09:29)
[2016-06-17] MEDS: SODIUM CHLORIDE FLUSH 10ML SYR IVF SCH (09:33)
[2016-06-17] MEDS: VANCOMYCIN 1,900 MG in SODIUM CHLORIDE 0.9% 250 ML IV SCH ×2 (09:34→10:45)
[2016-06-17] MEDS: HYDROcodone/APAP 5/325 TABLET PO PRN ×2 (09:48→14:08)
[2016-06-17] MEDS: NICOTINE 21 MG/24 HR PATCH.TD24 TD SCH (21:40)
[2016-06-17] MEDS: DOCUSATE 50 MG/5 ML, 10ML UDC PO SCH (21:40)
[2016-06-18] MEDS: ALBUTEROL/IPRATROPIUM 2.5MG/0.5MG, 3 ML NPPB SCH ×6 (02:03→22:12)
[2016-06-18] MEDS: PIPERACILLIN/TAZO/PMX 4.5GM 100 ML IV SCH ×4 (03:30→21:28)
[2016-06-18 04:35] LABS: ABG COLLECTION SITE RIGHT RADIAL; COLLATERAL CIRCULATION TESTING NORMAL
[2016-06-18] MEDS: SODIUM CHLORIDE FLUSH 10ML SYR IVF SCH ×3 (04:38→21:28)
[2016-06-18] MEDS: PROPOFOL 100 ML IV PRN ×3 (04:38→17:15)
[2016-06-18 04:48] LABS: ASPARTATE AMINO TRANSFERASE 71 U/L (15-37); BLOOD UREA NITROGEN 26 mg/dL (7-18)
[2016-06-18 06:30] VITALS: BP 152/88
[2016-06-18] MEDS: GABAPENTIN 300 MG CAPSULE PO SCH ×3 (08:28→21:28)
[2016-06-18] MEDS: DOCUSATE 50 MG/5 ML, 10ML UDC PO SCH ×2 (08:28→21:28)
[2016-06-18] MEDS: FOLIC ACID 1 MG TABLET PO SCH (08:28)
[2016-06-18] MEDS: ASPIRIN 81 MG TABLET CHEW PO SCH (08:28)
[2016-06-18] MEDS: THIAMINE 100MG TABLET PO SCH (08:28)
[2016-06-18] MEDS: MULTIVITAMINS/MINERALS TABLET PO SCH (08:28)
[2016-06-18] MEDS: PANTOPRAZOLE 40 MG IV IVPush SCH (08:28)
[2016-06-18] MEDS: MORPHINE SULFATE 4 MG/ML, 1ML IVPush PRN (08:48)
[2016-06-18] MEDS: AMLODIPINE 5 MG TABLET PO SCH (10:24)
[2016-06-18] MEDS: VANCOMYCIN 1,700 MG in SODIUM CHLORIDE 0.9% 250 ML IV SCH (12:39)
[2016-06-18] MEDS: NICOTINE 21 MG/24 HR PATCH.TD24 TD SCH (21:28)
[2016-06-19] MEDS: ALBUTEROL/IPRATROPIUM 2.5MG/0.5MG, 3 ML NPPB SCH ×6 (02:25→22:38)
[2016-06-19] MEDS: PIPERACILLIN/TAZO/PMX 4.5GM 100 ML IV SCH ×4 (03:29→20:22)
[2016-06-19 05:01] LABS: ABG COLLECTION SITE RIGHT RADIAL; COLLATERAL CIRCULATION TESTING NORMAL
[2016-06-19 06:16] LABS: BLOOD UREA NITROGEN 25 mg/dL (7-18)
[2016-06-19 06:21] LABS: ASPARTATE AMINO TRANSFERASE 93 U/L (15-37)
[2016-06-19 06:28] VITALS: BP 152/84
[2016-06-19] MEDS: DOCUSATE 50 MG/5 ML, 10ML UDC PO SCH ×2 (09:00→20:21)
[2016-06-19] MEDS: PROPOFOL 100 ML IV PRN (09:21)
[2016-06-19] MEDS: PANTOPRAZOLE 40 MG IV IVPush SCH (09:22)
[2016-06-19] MEDS: ASPIRIN 81 MG TABLET CHEW PO SCH (09:23)
[2016-06-19] MEDS: FOLIC ACID 1 MG TABLET PO SCH (09:23)
[2016-06-19] MEDS: THIAMINE 100MG TABLET PO SCH (09:23)
[2016-06-19] MEDS: SODIUM CHLORIDE FLUSH 10ML SYR IVF SCH ×2 (09:23→20:21)
[2016-06-19] MEDS: MULTIVITAMINS/MINERALS TABLET PO SCH (09:23)
[2016-06-19] MEDS: GABAPENTIN 300 MG CAPSULE PO SCH ×3 (09:23→20:27)
[2016-06-19] MEDS: AMLODIPINE 5 MG TABLET PO SCH (09:23)
[2016-06-19] MEDS ORDERED: FUROSEMIDE 40 MG/4 ML ONE (11:13)
[2016-06-19] MEDS ORDERED: FUROSEMIDE 40 MG/4 ML IV ONE (11:30)
[2016-06-19] MEDS: VANCOMYCIN 1,700 MG in SODIUM CHLORIDE 0.9% 250 ML IV SCH (11:39)
[2016-06-19] MEDS: LORazepam 2 MG/ML, 1ML IVPush PRN (11:57)
[2016-06-19] MEDS: NICOTINE 21 MG/24 HR PATCH.TD24 TD SCH (20:22)
[2016-06-19] MEDS: MORPHINE SULFATE 4 MG/ML, 1ML IVPush PRN (20:23)
[2016-06-19] MEDS: SCOPOLAMINE PATCH, 1.5MG PATCH.TD72 TD SCH (23:12)
[2016-06-20] MEDS: PROPOFOL 100 ML IV PRN ×3 (01:00→10:47)
[2016-06-20] MEDS: ALBUTEROL/IPRATROPIUM 2.5MG/0.5MG, 3 ML NPPB SCH ×6 (01:11→22:26)
[2016-06-20] MEDS: PIPERACILLIN/TAZO/PMX 4.5GM 100 ML IV SCH ×4 (03:13→20:48)
[2016-06-20] MEDS: MORPHINE SULFATE 4 MG/ML, 1ML IVPush PRN ×3 (03:31→21:00)
[2016-06-20 04:35] LABS: BLOOD UREA NITROGEN 29 mg/dL (7-18)
[2016-06-20 04:45] LABS: ABG COLLECTION SITE LEFT RADIAL; COLLATERAL CIRCULATION TESTING NORMAL
[2016-06-20] MEDS: DOCUSATE 50 MG/5 ML, 10ML UDC PO SCH ×2 (09:00→20:49)
[2016-06-20] MEDS: MULTIVITAMINS/MINERALS TABLET PO SCH (09:34)
[2016-06-20] MEDS: SODIUM CHLORIDE FLUSH 10ML SYR IVF SCH ×2 (09:34→20:48)
[2016-06-20] MEDS: ASPIRIN 81 MG TABLET CHEW PO SCH (09:34)
[2016-06-20] MEDS: PANTOPRAZOLE 40 MG IV IVPush SCH (09:34)
[2016-06-20] MEDS: GABAPENTIN 300 MG CAPSULE PO SCH ×3 (09:34→20:48)
[2016-06-20] MEDS: FOLIC ACID 1 MG TABLET PO SCH (09:34)
[2016-06-20] MEDS: AMLODIPINE 5 MG TABLET PO SCH (09:35)
[2016-06-20] MEDS: THIAMINE 100MG TABLET PO SCH (09:35)
[2016-06-20] MEDS: FUROSEMIDE 40 MG/4 ML IV SCH (10:46)
[2016-06-20] MEDS: QUETIAPINE 25MG TABLET NG SCH ×2 (10:47→20:49)
[2016-06-20] MEDS: HYDROcodone/APAP 5/325 TABLET PO PRN (10:48)
[2016-06-20] MEDS: VANCOMYCIN 1,700 MG in SODIUM CHLORIDE 0.9% 250 ML IV SCH (12:07)
[2016-06-20] MEDS: NICOTINE 21 MG/24 HR PATCH.TD24 TD SCH (20:52)
[2016-06-21] MEDS: PROPOFOL 100 ML IV PRN (01:24)
[2016-06-21] MEDS: ALBUTEROL/IPRATROPIUM 2.5MG/0.5MG, 3 ML NPPB SCH ×6 (02:30→22:49)
[2016-06-21] MEDS: PIPERACILLIN/TAZO/PMX 4.5GM 100 ML IV SCH ×4 (03:19→20:44)
[2016-06-21 04:50] LABS: ABG COLLECTION SITE LEFT RADIAL; COLLATERAL CIRCULATION TESTING NORMAL
[2016-06-21] MEDS: MORPHINE SULFATE 4 MG/ML, 1ML IVPush PRN ×3 (04:51→15:27)
[2016-06-21 05:01] LABS: BLOOD UREA NITROGEN 31 mg/dL (7-18)
[2016-06-21] MEDS: DOCUSATE 50 MG/5 ML, 10ML UDC PO SCH ×2 (08:50→20:45)
[2016-06-21] MEDS: SODIUM CHLORIDE FLUSH 10ML SYR IVF SCH ×2 (09:16→20:45)
[2016-06-21] MEDS: GABAPENTIN 300 MG CAPSULE PO SCH ×3 (09:17→20:44)
[2016-06-21] MEDS: THIAMINE 100MG TABLET PO SCH (09:17)
[2016-06-21] MEDS: FOLIC ACID 1 MG TABLET PO SCH (09:17)
[2016-06-21] MEDS: AMLODIPINE 5 MG TABLET PO SCH (09:17)
[2016-06-21] MEDS: ASPIRIN 81 MG TABLET CHEW PO SCH (09:17)
[2016-06-21] MEDS: FUROSEMIDE 40 MG/4 ML IV SCH (09:17)
[2016-06-21] MEDS: QUETIAPINE 25MG TABLET NG SCH ×2 (09:17→20:45)
[2016-06-21] MEDS: MULTIVITAMINS/MINERALS TABLET PO SCH (09:17)
[2016-06-21] MEDS: PANTOPRAZOLE 40 MG IV IVPush SCH (09:17)
[2016-06-21] MEDS: VANCOMYCIN 1,700 MG in SODIUM CHLORIDE 0.9% 250 ML IV SCH (11:33)
[2016-06-21] MEDS ORDERED: VECURONIUM 10 MG ONE (11:49)
[2016-06-21] MEDS ORDERED: FENTANYL PF 100 MCG/2ML ONE (11:50)
[2016-06-21] MEDS ORDERED: MIDAZOLAM 1 MG/ML, 5ML ONE (11:58)
[2016-06-21] MEDS: HYDROcodone/APAP 5/325 TABLET PO PRN (18:36)
[2016-06-21] MEDS: NICOTINE 21 MG/24 HR PATCH.TD24 TD SCH (21:32)
[2016-06-22] MEDS: HYDROcodone/APAP 5/325 TABLET PO PRN ×4 (00:07→20:19)
[2016-06-22] MEDS: ALBUTEROL/IPRATROPIUM 2.5MG/0.5MG, 3 ML NPPB SCH ×6 (02:42→23:00)
[2016-06-22] MEDS: LORazepam 2 MG/ML, 1ML IVPush PRN (02:58)
[2016-06-22] MEDS: PIPERACILLIN/TAZO/PMX 4.5GM 100 ML IV SCH ×4 (02:58→21:17)
[2016-06-22 05:12] LABS: ABG COLLECTION SITE RIGHT RADIAL; COLLATERAL CIRCULATION TESTING NORMAL
[2016-06-22 06:50] LABS: ABG COLLECTION SITE RIGHT RADIAL; COLLATERAL CIRCULATION TESTING NORMAL
[2016-06-22] MEDS: DOCUSATE 50 MG/5 ML, 10ML UDC PO SCH ×2 (09:00→21:26)
[2016-06-22] MEDS: FOLIC ACID 1 MG TABLET PO SCH (09:46)
[2016-06-22] MEDS: THIAMINE 100MG TABLET PO SCH (09:46)
[2016-06-22] MEDS: ASPIRIN 81 MG TABLET CHEW PO SCH (09:46)
[2016-06-22] MEDS: AMLODIPINE 5 MG TABLET PO SCH (09:46)
[2016-06-22] MEDS: SODIUM CHLORIDE FLUSH 10ML SYR IVF SCH ×2 (09:46→21:20)
[2016-06-22] MEDS: PANTOPRAZOLE 40 MG IV IVPush SCH (09:46)
[2016-06-22] MEDS: FUROSEMIDE 40 MG/4 ML IV SCH (09:46)
[2016-06-22] MEDS: GABAPENTIN 300 MG CAPSULE PO SCH ×3 (09:47→21:18)
[2016-06-22] MEDS: MULTIVITAMINS/MINERALS TABLET PO SCH (09:47)
[2016-06-22] MEDS: QUETIAPINE 25MG TABLET NG SCH ×2 (09:47→21:18)
[2016-06-22] MEDS: VANCOMYCIN 1,700 MG in SODIUM CHLORIDE 0.9% 250 ML IV SCH (12:32)
[2016-06-22] MEDS: NICOTINE 21 MG/24 HR PATCH.TD24 TD SCH (21:18)
[2016-06-22] MEDS: SCOPOLAMINE PATCH, 1.5MG PATCH.TD72 TD SCH (23:00)
[2016-06-22] MEDS: MORPHINE SULFATE 4 MG/ML, 1ML IVPush PRN (23:50)
[2016-06-23] MEDS: ALBUTEROL/IPRATROPIUM 2.5MG/0.5MG, 3 ML NPPB SCH ×6 (02:22→22:31)
[2016-06-23] MEDS: HYDROcodone/APAP 5/325 TABLET PO PRN ×3 (02:44→20:32)
[2016-06-23] MEDS: PIPERACILLIN/TAZO/PMX 4.5GM 100 ML IV SCH (03:19)
[2016-06-23] MEDS: MORPHINE SULFATE 4 MG/ML, 1ML IVPush PRN ×3 (04:37→22:00)
[2016-06-23 04:41] LABS: ABG COLLECTION SITE RIGHT RADIAL; COLLATERAL CIRCULATION TESTING NORMAL
[2016-06-23] MEDS: LORazepam 2 MG/ML, 1ML IVPush PRN (06:12)
[2016-06-23] MEDS: DOCUSATE 50 MG/5 ML, 10ML UDC PO SCH ×2 (09:00→20:35)
[2016-06-23] MEDS: PANTOPRAZOLE 40 MG IV IVPush SCH (10:04)
[2016-06-23] MEDS: THIAMINE 100MG TABLET PO SCH (11:33)
[2016-06-23] MEDS: FOLIC ACID 1 MG TABLET PO SCH (11:33)
[2016-06-23] MEDS: ASPIRIN 81 MG TABLET CHEW PO SCH (11:33)
[2016-06-23] MEDS: AMLODIPINE 5 MG TABLET PO SCH (11:33)
[2016-06-23] MEDS: GABAPENTIN 300 MG CAPSULE PO SCH ×3 (11:33→20:31)
[2016-06-23] MEDS: MULTIVITAMINS/MINERALS TABLET PO SCH (11:34)
[2016-06-23] MEDS: QUETIAPINE 25MG TABLET NG SCH ×2 (11:35→20:32)
[2016-06-23] MEDS: SODIUM CHLORIDE FLUSH 10ML SYR IVF SCH ×2 (11:35→20:32)
[2016-06-23] MEDS: NICOTINE 21 MG/24 HR PATCH.TD24 TD SCH (20:32)
[2016-06-24] MEDS: MORPHINE SULFATE 4 MG/ML, 1ML IVPush PRN (01:17)
[2016-06-24] MEDS: ALBUTEROL/IPRATROPIUM 2.5MG/0.5MG, 3 ML NPPB SCH ×6 (03:00→23:00)
[2016-06-24 04:28] LABS: FIO2 94.5 %
[2016-06-24 04:29] LABS: ABG COLLECTION SITE RIGHT RADIAL; COLLATERAL CIRCULATION TESTING NORMAL
[2016-06-24] MEDS: LORazepam 2 MG/ML, 1ML IVPush PRN (04:32)
[2016-06-24] MEDS: HYDROcodone/APAP 5/325 TABLET PO PRN ×5 (06:13→20:41)
[2016-06-24 07:09] LABS: ASPARTATE AMINO TRANSFERASE 48 U/L (15-37); BLOOD UREA NITROGEN 31 mg/dL (7-18)
[2016-06-24] MEDS: AMLODIPINE 5 MG TABLET PO SCH (09:00)
[2016-06-24] MEDS: PANTOPRAZOLE 40 MG IV IVPush SCH (10:02)
[2016-06-24] MEDS: MULTIVITAMINS/MINERALS TABLET PO SCH (11:51)
[2016-06-24] MEDS: QUETIAPINE 25MG TABLET NG SCH ×2 (11:51→20:59)
[2016-06-24] MEDS: THIAMINE 100MG TABLET PO SCH (11:51)
[2016-06-24] MEDS: GABAPENTIN 300 MG CAPSULE PO SCH ×3 (11:51→20:59)
[2016-06-24] MEDS: FOLIC ACID 1 MG TABLET PO SCH (11:51)
[2016-06-24] MEDS: ASPIRIN 81 MG TABLET CHEW PO SCH (11:52)
[2016-06-24] MEDS: DOCUSATE 50 MG/5 ML, 10ML UDC PO SCH ×2 (11:52→21:00)
[2016-06-24] MEDS ORDERED: HEPARIN 5,000 UNITS/ML, 1ML SQ SCH (14:00)
[2016-06-24] MEDS: FONDAPARINUX 2.5 MG/0.5 ML SQ SCH (20:59)
[2016-06-24] MEDS: SODIUM CHLORIDE FLUSH 10ML SYR IVF SCH (21:00)
[2016-06-24] MEDS: NICOTINE 21 MG/24 HR PATCH.TD24 TD SCH (21:00)
[2016-06-25] MEDS: HYDROcodone/APAP 5/325 TABLET PO PRN ×2 (01:07→04:46)
[2016-06-25] MEDS: ALBUTEROL/IPRATROPIUM 2.5MG/0.5MG, 3 ML NPPB SCH ×5 (02:23→23:00)
[2016-06-25] MEDS: LORazepam 2 MG/ML, 1ML IVPush PRN ×2 (02:50→06:23)
[2016-06-25 04:42] LABS: ABG COLLECTION SITE RIGHT RADIAL; COLLATERAL CIRCULATION TESTING NORMAL
[2016-06-25] MEDS ORDERED: SODIUM CHLORIDE 0.9% 1,000 ML IV SCH (09:00)
[2016-06-25] MEDS: DOCUSATE 50 MG/5 ML, 10ML UDC PO SCH ×2 (09:00→20:36)
[2016-06-25] MEDS: THIAMINE 100MG TABLET PO SCH (10:58)
[2016-06-25] MEDS: PANTOPRAZOLE 40 MG IV IVPush SCH (10:58)
[2016-06-25] MEDS: OXYcodone 5 MG/5 ML ORAL.SOL UDC NG PRN (10:58)
[2016-06-25] MEDS: QUETIAPINE 25MG TABLET NG SCH ×2 (10:58→20:51)
[2016-06-25] MEDS: GABAPENTIN 300 MG CAPSULE PO SCH ×3 (10:58→20:51)
[2016-06-25] MEDS: ASPIRIN 81 MG TABLET CHEW PO SCH (10:58)
[2016-06-25] MEDS: FOLIC ACID 1 MG TABLET PO SCH (10:59)
[2016-06-25] MEDS: AMLODIPINE 5 MG TABLET PO SCH (10:59)
[2016-06-25] MEDS: MULTIVITAMINS/MINERALS TABLET PO SCH (10:59)
[2016-06-25] MEDS: NICOTINE 21 MG/24 HR PATCH.TD24 TD SCH (20:52)
[2016-06-25] MEDS: SODIUM CHLORIDE FLUSH 10ML SYR IVF SCH (21:00)
[2016-06-25] MEDS: FONDAPARINUX 2.5 MG/0.5 ML SQ SCH (21:09)
[2016-06-26] MEDS: ALBUTEROL/IPRATROPIUM 2.5MG/0.5MG, 3 ML NPPB SCH ×7 (02:08→22:14)
[2016-06-26] MEDS: OXYcodone 5 MG/5 ML ORAL.SOL UDC NG PRN ×5 (03:32→20:07)
[2016-06-26 04:55] LABS: ABG COLLECTION SITE LEFT RADIAL; COLLATERAL CIRCULATION TESTING NORMAL
[2016-06-26] MEDS: LORazepam 2 MG/ML, 1ML IVPush PRN ×4 (06:38→18:30)
[2016-06-26] MEDS: SODIUM CHLORIDE FLUSH 10ML SYR IVF SCH ×2 (08:00→20:55)
[2016-06-26] MEDS: MULTIVITAMINS/MINERALS TABLET PO SCH (08:00)
[2016-06-26] MEDS: AMLODIPINE 5 MG TABLET PO SCH (08:00)
[2016-06-26] MEDS: PANTOPRAZOLE 40 MG IV IVPush SCH (08:00)
[2016-06-26] MEDS: QUETIAPINE 25MG TABLET NG SCH ×2 (08:00→20:55)
[2016-06-26] MEDS: THIAMINE 100MG TABLET PO SCH (08:00)
[2016-06-26] MEDS: FOLIC ACID 1 MG TABLET PO SCH (08:00)
[2016-06-26] MEDS: GABAPENTIN 300 MG CAPSULE PO SCH ×3 (08:00→20:55)
[2016-06-26] MEDS: DOCUSATE 50 MG/5 ML, 10ML UDC PO SCH ×2 (08:01→21:00)
[2016-06-26] MEDS: ASPIRIN 81 MG TABLET CHEW PO SCH (08:01)
[2016-06-26] MEDS: FONDAPARINUX 2.5 MG/0.5 ML SQ SCH (20:56)
[2016-06-26] MEDS: NICOTINE 21 MG/24 HR PATCH.TD24 TD SCH (20:56)
[2016-06-27] MEDS: ALBUTEROL/IPRATROPIUM 2.5MG/0.5MG, 3 ML NPPB SCH ×7 (01:52→23:12)
[2016-06-27] MEDS: OXYcodone 5 MG/5 ML ORAL.SOL UDC NG PRN ×2 (02:10→10:24)
[2016-06-27 03:51] LABS: BLOOD UREA NITROGEN 28 mg/dL (7-18)
[2016-06-27 04:38] LABS: ABG COLLECTION SITE LEFT RADIAL; COLLATERAL CIRCULATION TESTING NORMAL
[2016-06-27] MEDS: DOCUSATE 50 MG/5 ML, 10ML UDC PO SCH ×2 (10:23→21:09)
[2016-06-27] MEDS: SODIUM CHLORIDE FLUSH 10ML SYR IVF SCH ×2 (10:23→21:09)
[2016-06-27] MEDS: MULTIVITAMINS/MINERALS TABLET PO SCH (10:24)
[2016-06-27] MEDS: PANTOPRAZOLE 40 MG IV IVPush SCH (10:24)
[2016-06-27] MEDS: ASPIRIN 81 MG TABLET CHEW PO SCH (10:25)
[2016-06-27] MEDS: FOLIC ACID 1 MG TABLET PO SCH (10:26)
[2016-06-27] MEDS: THIAMINE 100MG TABLET PO SCH (10:26)
[2016-06-27] MEDS: GABAPENTIN 300 MG CAPSULE PO SCH ×3 (10:26→21:09)
[2016-06-27] MEDS: QUETIAPINE 25MG TABLET NG SCH ×2 (10:26→21:09)
[2016-06-27] MEDS: AMLODIPINE 5 MG TABLET PO SCH (10:26)
[2016-06-27 18:06] LABS: ABG COLLECTION SITE RIGHT RADIAL; COLLATERAL CIRCULATION TESTING NORMAL
[2016-06-27] MEDS: FONDAPARINUX 2.5 MG/0.5 ML SQ SCH (21:09)
[2016-06-27] MEDS: NICOTINE 21 MG/24 HR PATCH.TD24 TD SCH (21:10)
[2016-06-28] MEDS: ALBUTEROL/IPRATROPIUM 2.5MG/0.5MG, 3 ML NPPB SCH ×6 (01:59→21:58)
[2016-06-28] MEDS: OXYcodone 5 MG/5 ML ORAL.SOL UDC NG PRN ×4 (04:14→20:26)
[2016-06-28 04:38] LABS: ABG COLLECTION SITE LEFT RADIAL; COLLATERAL CIRCULATION TESTING NORMAL
[2016-06-28] MEDS: DOCUSATE 50 MG/5 ML, 10ML UDC PO SCH ×2 (09:00→20:27)
[2016-06-28] MEDS: FOLIC ACID 1 MG TABLET PO SCH (09:28)
[2016-06-28] MEDS: MULTIVITAMINS/MINERALS TABLET PO SCH (09:28)
[2016-06-28] MEDS: THIAMINE 100MG TABLET PO SCH (09:28)
[2016-06-28] MEDS: GABAPENTIN 300 MG CAPSULE PO SCH ×3 (09:28→20:27)
[2016-06-28] MEDS: PANTOPRAZOLE 40 MG IV IVPush SCH (09:29)
[2016-06-28] MEDS: QUETIAPINE 25MG TABLET NG SCH ×2 (09:29→20:27)
[2016-06-28] MEDS: ASPIRIN 81 MG TABLET CHEW PO SCH (09:29)
[2016-06-28] MEDS: AMLODIPINE 5 MG TABLET PO SCH (09:30)
[2016-06-28] MEDS: SODIUM CHLORIDE FLUSH 10ML SYR IVF SCH ×2 (09:30→20:28)
[2016-06-28] MEDS ORDERED: MIDAZOLAM 1 MG/ML, 5ML ONE (11:05)
[2016-06-28] MEDS ORDERED: MIDAZOLAM 1 MG/ML, 5ML IVPush ONE (11:30)
[2016-06-28] MEDS: FONDAPARINUX 2.5 MG/0.5 ML SQ SCH (19:12)
[2016-06-28] MEDS: NICOTINE 21 MG/24 HR PATCH.TD24 TD SCH (20:28)
[2016-06-28] MEDS: LIDOCAINE-MPF 1%, 2ML ENDO PRN (21:58)
[2016-06-29] MEDS: OXYcodone 5 MG/5 ML ORAL.SOL UDC NG PRN ×5 (00:24→17:16)
[2016-06-29] MEDS ORDERED: IPRATROPIUM 0.5 MG/2.5 ML INHA ONE (02:38)
[2016-06-29] MEDS ORDERED: ALBUTEROL SULFATE 2.5 MG/3 ML ONE (02:38)
[2016-06-29] MEDS: ALBUTEROL/IPRATROPIUM 2.5MG/0.5MG, 3 ML NPPB SCH ×6 (02:40→22:00)
[2016-06-29 04:46] LABS: ABG COLLECTION SITE RIGHT RADIAL; COLLATERAL CIRCULATION TESTING NORMAL
[2016-06-29 06:35] LABS: BLOOD UREA NITROGEN 36 mg/dL (7-18)
[2016-06-29] MEDS ORDERED: LIDOCAINE 2%, 20ML ONE (08:00)
[2016-06-29] MEDS: SODIUM CHLORIDE FLUSH 10ML SYR IVF SCH ×2 (08:23→20:58)
[2016-06-29] MEDS: GABAPENTIN 300 MG CAPSULE PO SCH ×3 (08:24→20:59)
[2016-06-29] MEDS: ASPIRIN 81 MG TABLET CHEW PO SCH (08:24)
[2016-06-29] MEDS: DOCUSATE 50 MG/5 ML, 10ML UDC PO SCH ×2 (08:24→20:59)
[2016-06-29] MEDS: AMLODIPINE 5 MG TABLET PO SCH (08:25)
[2016-06-29] MEDS: FOLIC ACID 1 MG TABLET PO SCH (08:25)
[2016-06-29] MEDS: PANTOPRAZOLE 40 MG IV IVPush SCH (08:25)
[2016-06-29] MEDS: THIAMINE 100MG TABLET PO SCH (08:25)
[2016-06-29] MEDS: MULTIVITAMINS/MINERALS TABLET PO SCH (08:25)
[2016-06-29] MEDS: QUETIAPINE 25MG TABLET NG SCH ×2 (08:25→20:59)
[2016-06-29 13:35] LABS: ABG COLLECTION SITE RIGHT RADIAL; COLLATERAL CIRCULATION TESTING NORMAL
[2016-06-29] MEDS ORDERED: FUROSEMIDE 40 MG/4 ML IV SCH (17:00)
[2016-06-29] MEDS: NICOTINE 21 MG/24 HR PATCH.TD24 TD SCH (20:59)
[2016-06-29] MEDS ORDERED: FUROSEMIDE 40 MG/4 ML IV ONE (21:00)
[2016-06-29] MEDS: LIDOCAINE-MPF 1%, 2ML ENDO PRN (22:09)
[2016-06-30] MEDS: OXYcodone 5 MG/5 ML ORAL.SOL UDC NG PRN ×4 (00:08→17:12)
[2016-06-30] MEDS: ALBUTEROL/IPRATROPIUM 2.5MG/0.5MG, 3 ML NPPB SCH ×6 (02:10→23:39)
[2016-06-30 04:58] LABS: ABG COLLECTION SITE RIGHT RADIAL; COLLATERAL CIRCULATION TESTING NORMAL
[2016-06-30 05:13] LABS: BLOOD UREA NITROGEN 44 mg/dL (7-18)
[2016-06-30] MEDS: ASPIRIN 81 MG TABLET CHEW PO SCH (09:00)
[2016-06-30] MEDS: QUETIAPINE 25MG TABLET NG SCH ×2 (11:17→20:48)
[2016-06-30] MEDS: DOCUSATE 50 MG/5 ML, 10ML UDC PO SCH ×2 (11:18→20:48)
[2016-06-30] MEDS: MULTIVITAMINS/MINERALS TABLET PO SCH (11:18)
[2016-06-30] MEDS: FOLIC ACID 1 MG TABLET PO SCH (11:18)
[2016-06-30] MEDS: THIAMINE 100MG TABLET PO SCH (11:18)
[2016-06-30] MEDS: PANTOPRAZOLE 40 MG IV IVPush SCH (11:18)
[2016-06-30] MEDS: AMLODIPINE 5 MG TABLET PO SCH (11:18)
[2016-06-30] MEDS: SODIUM CHLORIDE FLUSH 10ML SYR IVF SCH ×2 (11:19→20:48)
[2016-06-30] MEDS: GABAPENTIN 300 MG CAPSULE PO SCH ×3 (11:29→20:48)
[2016-06-30] MEDS ORDERED: CEFTRIAXONE PMX 2GM/50ML 50 ML IV SCH (11:30)
[2016-06-30] MEDS ORDERED: METRONIDAZOLE PMX 500MG/100ML 100 ML IV SCH (11:30)
[2016-06-30] MEDS ORDERED: MIDAZOLAM 1 MG/ML, 5ML ONE (13:14)
[2016-06-30] MEDS ORDERED: MIDAZOLAM 1 MG/ML, 5ML IVPush ONE (13:30)
[2016-06-30] MEDS ORDERED: CODEINE SULFATE 30 MG TABLET PO PRN (14:00)
[2016-06-30] MEDS: MEROPENEM 0.5 GM in SODIUM CHLORIDE 0.9% 100 ML IV SCH ×2 (14:40→21:47)
[2016-06-30] MEDS: NICOTINE 21 MG/24 HR PATCH.TD24 TD SCH (20:49)
[2016-07-01] MEDS: ALBUTEROL/IPRATROPIUM 2.5MG/0.5MG, 3 ML NPPB SCH ×6 (02:42→22:38)
[2016-07-01 04:40] LABS: ABG COLLECTION SITE NOT DOCUMENTED
[2016-07-01 05:04] LABS: BLOOD UREA NITROGEN 53 mg/dL (7-18)
[2016-07-01] MEDS: OXYcodone 5 MG/5 ML ORAL.SOL UDC NG PRN ×4 (05:14→21:03)
[2016-07-01] MEDS: MEROPENEM 0.5 GM in SODIUM CHLORIDE 0.9% 100 ML IV SCH (05:15)
[2016-07-01 05:26] LABS: DIFF TOTAL CELLS COUNTED 100 CELL DIFF
[2016-07-01 05:27] LABS: VERIFY COUNTS? YES
[2016-07-01 05:28] LABS: ANISOCYTOSIS 1+; LARGE PLATELETS 1+
[2016-07-01] MEDS: ASPIRIN 81 MG TABLET CHEW PO SCH (09:00)
[2016-07-01] MEDS ORDERED: FONDAPARINUX 7.5 MG/0.6 ML SQ SCH (09:00)
[2016-07-01] MEDS: DOCUSATE 50 MG/5 ML, 10ML UDC PO SCH ×3 (09:00→21:02)
[2016-07-01] MEDS: PANTOPRAZOLE 40 MG IV IVPush SCH (09:46)
[2016-07-01] MEDS: AMLODIPINE 5 MG TABLET PO SCH (09:47)
[2016-07-01] MEDS: GABAPENTIN 300 MG CAPSULE PO SCH ×3 (09:47→21:03)
[2016-07-01] MEDS: THIAMINE 100MG TABLET PO SCH (09:47)
[2016-07-01] MEDS: MULTIVITAMINS/MINERALS TABLET PO SCH (09:48)
[2016-07-01] MEDS: FOLIC ACID 1 MG TABLET PO SCH (09:48)
[2016-07-01] MEDS: QUETIAPINE 25MG TABLET NG SCH ×2 (09:51→21:02)
[2016-07-01] MEDS: SODIUM CHLORIDE FLUSH 10ML SYR IVF SCH ×2 (09:52→21:02)
[2016-07-01] MEDS ORDERED: MEROPENEM 500 MG in SODIUM CHLORIDE 0.9% 100 ML IV SCH (12:32)
[2016-07-01] MEDS: MEROPENEM 500 MG in SODIUM CHLORIDE 0.9% 100 ML IV SCH ×2 (14:07→21:32)
[2016-07-01] MEDS: NICOTINE 21 MG/24 HR PATCH.TD24 TD SCH (21:03)
[2016-07-02] MEDS: OXYcodone 5 MG/5 ML ORAL.SOL UDC NG PRN ×3 (01:27→20:53)
[2016-07-02] MEDS: ALBUTEROL/IPRATROPIUM 2.5MG/0.5MG, 3 ML NPPB SCH ×6 (03:14→22:39)
[2016-07-02 04:34] LABS: ABG COLLECTION SITE LEFT RADIAL; COLLATERAL CIRCULATION TESTING NORMAL; FIO2 70 %
[2016-07-02 04:48] LABS: BLOOD UREA NITROGEN 56 mg/dL (7-18)
[2016-07-02] MEDS: MEROPENEM 500 MG in SODIUM CHLORIDE 0.9% 100 ML IV SCH ×3 (05:30→21:41)
[2016-07-02 05:47] LABS: DIFF TOTAL CELLS COUNTED 100 CELL DIFF
[2016-07-02 05:50] LABS: ANISOCYTOSIS 1+; VERIFY COUNTS? YES
[2016-07-02 05:51] LABS: LARGE PLATELETS 1+; POLYCHROMASIA 1+
[2016-07-02] MEDS: DOCUSATE 50 MG/5 ML, 10ML UDC PO SCH ×2 (09:00→20:41)
[2016-07-02] MEDS: MULTIVITAMINS/MINERALS TABLET PO SCH (09:00)
[2016-07-02] MEDS: QUETIAPINE 25MG TABLET NG SCH ×2 (09:00→20:42)
[2016-07-02] MEDS: GABAPENTIN 300 MG CAPSULE PO SCH ×3 (09:00→20:41)
[2016-07-02] MEDS: THIAMINE 100MG TABLET PO SCH (09:00)
[2016-07-02] MEDS: FOLIC ACID 1 MG TABLET PO SCH (09:00)
[2016-07-02] MEDS: AMLODIPINE 5 MG TABLET PO SCH (09:00)
[2016-07-02] MEDS ORDERED: MIDAZOLAM 1 MG/ML, 5ML ONE (10:00)
[2016-07-02] MEDS ORDERED: PROPOFOL 10 MG/ML, 20ML ONE (10:00)
[2016-07-02] MEDS: SODIUM CHLORIDE FLUSH 10ML SYR IVF SCH ×2 (10:23→20:41)
[2016-07-02] MEDS: PANTOPRAZOLE 40 MG IV IVPush SCH (10:23)
[2016-07-02] MEDS ORDERED: MORPHINE SULFATE 4 MG/ML, 1ML ONE (15:07)
[2016-07-02] MEDS: MORPHINE SULFATE 4 MG/ML, 1ML IVPush PRN ×2 (15:12→16:18)
[2016-07-02] MEDS: PROPOFOL 100 ML IV PRN ×2 (16:19→21:41)
[2016-07-02] MEDS: NICOTINE 21 MG/24 HR PATCH.TD24 TD SCH (20:41)
[2016-07-03] MEDS: ACETAMINOPHEN 325 MG TABLET PO PRN (01:11)
[2016-07-03] MEDS: APAP/CODEINE 300/30MG TABLET PO PRN ×2 (02:23→20:12)
[2016-07-03] MEDS: ALBUTEROL/IPRATROPIUM 2.5MG/0.5MG, 3 ML NPPB SCH ×6 (02:32→21:53)
[2016-07-03] MEDS: PROPOFOL 100 ML IV PRN ×3 (04:27→21:11)
[2016-07-03 04:50] LABS: ABG COLLECTION SITE LEFT RADIAL; COLLATERAL CIRCULATION TESTING NORMAL
[2016-07-03 05:25] LABS: HIV 1&2 ANTIBODY SCREEN Nonreactive (Nonreactive); HIV-1 p24 ANTIGEN Nonreactive (Nonreactive)
[2016-07-03 05:39] LABS: DIFF TOTAL CELLS COUNTED 100 CELL DIFF
[2016-07-03] MEDS: MEROPENEM 500 MG in SODIUM CHLORIDE 0.9% 100 ML IV SCH ×3 (05:39→21:39)
[2016-07-03 05:41] LABS: VERIFY COUNTS? YES
[2016-07-03 05:42] LABS: ANISOCYTOSIS 1+; POLYCHROMASIA 1+
[2016-07-03 05:43] LABS: LARGE PLATELETS 1+
[2016-07-03] MEDS: PANTOPRAZOLE 40 MG IV IVPush SCH (08:18)
[2016-07-03] MEDS: DOCUSATE 50 MG/5 ML, 10ML UDC PO SCH ×2 (08:18→20:59)
[2016-07-03] MEDS: THIAMINE 100MG TABLET PO SCH (08:19)
[2016-07-03] MEDS: AMLODIPINE 5 MG TABLET PO SCH (08:19)
[2016-07-03] MEDS: QUETIAPINE 25MG TABLET NG SCH ×2 (08:19→21:00)
[2016-07-03] MEDS: MULTIVITAMINS/MINERALS TABLET PO SCH (08:19)
[2016-07-03] MEDS: FOLIC ACID 1 MG TABLET PO SCH (08:19)
[2016-07-03] MEDS: GABAPENTIN 300 MG CAPSULE PO SCH ×3 (08:20→21:00)
[2016-07-03 08:36] VITALS: BP 101/63
[2016-07-03 08:55] VITALS: BP 116/69
[2016-07-03] MEDS: OXYcodone 5 MG/5 ML ORAL.SOL UDC NG PRN ×2 (09:01→13:11)
[2016-07-03] MEDS: SODIUM CHLORIDE FLUSH 10ML SYR IVF SCH ×2 (09:11→20:12)
[2016-07-03 09:25] LABS: BLOOD UREA NITROGEN 72 mg/dL (7-18)
[2016-07-03 09:28] LABS: ASPARTATE AMINO TRANSFERASE 36 U/L (15-37)
[2016-07-03] MEDS ORDERED: FUROSEMIDE 20 MG/2 ML ONE (10:52)
[2016-07-03 12:00] VITALS: BP 118/70
[2016-07-03 12:45] VITALS: BP 122/73
[2016-07-03] MEDS: FUROSEMIDE 40 MG/4 ML IV SCH (13:13)
[2016-07-03] MEDS ORDERED: FUROSEMIDE 20 MG/2 ML IV ONE (13:30)
[2016-07-03] MEDS ORDERED: FUROSEMIDE 20 MG/2 ML IV SCH (21:00)
[2016-07-03] MEDS: NICOTINE 21 MG/24 HR PATCH.TD24 TD SCH (21:01)
[2016-07-04] MEDS: ALBUTEROL/IPRATROPIUM 2.5MG/0.5MG, 3 ML NPPB SCH ×6 (03:00→23:00)
[2016-07-04] MEDS: PROPOFOL 100 ML IV PRN ×4 (04:47→20:19)
[2016-07-04 05:04] LABS: ABG COLLECTION SITE LEFT BRACHIAL
[2016-07-04 05:36] LABS: ASPARTATE AMINO TRANSFERASE 32 U/L (15-37); BLOOD UREA NITROGEN 70 mg/dL (7-18)
[2016-07-04] MEDS: MEROPENEM 500 MG in SODIUM CHLORIDE 0.9% 100 ML IV SCH ×3 (05:38→21:24)
[2016-07-04 06:11] LABS: DIFF TOTAL CELLS COUNTED 100 CELL DIFF
[2016-07-04 06:15] LABS: ANISOCYTOSIS 1+; HYPOCHROMIA 1+; VERIFY COUNTS? YES
[2016-07-04] MEDS: PANTOPRAZOLE 40 MG IV IVPush SCH (09:59)
[2016-07-04] MEDS: SODIUM CHLORIDE FLUSH 10ML SYR IVF SCH ×2 (09:59→20:18)
[2016-07-04] MEDS: AMLODIPINE 5 MG TABLET PO SCH (10:00)
[2016-07-04] MEDS: DOCUSATE 50 MG/5 ML, 10ML UDC PO SCH ×2 (10:00→20:18)
[2016-07-04] MEDS: THIAMINE 100MG TABLET PO SCH (10:00)
[2016-07-04] MEDS: FOLIC ACID 1 MG TABLET PO SCH (10:00)
[2016-07-04] MEDS: QUETIAPINE 25MG TABLET NG SCH ×2 (10:00→20:18)
[2016-07-04] MEDS: MULTIVITAMINS/MINERALS TABLET PO SCH (10:01)
[2016-07-04] MEDS: GABAPENTIN 300 MG CAPSULE PO SCH ×3 (10:01→20:19)
[2016-07-04] MEDS: OXYcodone 5 MG/5 ML ORAL.SOL UDC NG PRN ×3 (10:57→20:19)
[2016-07-04] MEDS: FUROSEMIDE 40 MG/4 ML IV SCH (16:30)
[2016-07-04] MEDS: NICOTINE 21 MG/24 HR PATCH.TD24 TD SCH (20:18)
[2016-07-05] MEDS: OXYcodone 5 MG/5 ML ORAL.SOL UDC NG PRN ×4 (02:56→20:42)
[2016-07-05] MEDS: PROPOFOL 100 ML IV PRN (02:56)
[2016-07-05] MEDS: ALBUTEROL/IPRATROPIUM 2.5MG/0.5MG, 3 ML NPPB SCH ×6 (03:00→23:00)
[2016-07-05 05:33] LABS: ABG COLLECTION SITE RIGHT RADIAL; COLLATERAL CIRCULATION TESTING NORMAL
[2016-07-05] MEDS: MEROPENEM 500 MG in SODIUM CHLORIDE 0.9% 100 ML IV SCH ×3 (05:53→22:58)
[2016-07-05] MEDS: FUROSEMIDE 40 MG/4 ML IV SCH (06:29)
[2016-07-05 07:19] LABS: DIFF TOTAL CELLS COUNTED 100 CELL DIFF
[2016-07-05 07:21] LABS: ANISOCYTOSIS 1+; POLYCHROMASIA 1+; VERIFY COUNTS? YES
[2016-07-05 07:22] LABS: LARGE PLATELETS 1+
[2016-07-05] MEDS: PANTOPRAZOLE 40 MG IV IVPush SCH (08:01)
[2016-07-05] MEDS: SODIUM CHLORIDE FLUSH 10ML SYR IVF SCH ×2 (08:02→20:43)
[2016-07-05] MEDS: FOLIC ACID 1 MG TABLET PO SCH (08:22)
[2016-07-05] MEDS: THIAMINE 100MG TABLET PO SCH (08:22)
[2016-07-05] MEDS: AMLODIPINE 5 MG TABLET PO SCH (08:23)
[2016-07-05] MEDS: MULTIVITAMINS/MINERALS TABLET PO SCH (08:23)
[2016-07-05] MEDS: GABAPENTIN 300 MG CAPSULE PO SCH ×3 (08:23→20:43)
[2016-07-05] MEDS: DOCUSATE 50 MG/5 ML, 10ML UDC PO SCH ×2 (08:24→20:42)
[2016-07-05] MEDS: QUETIAPINE 25MG TABLET NG SCH ×2 (08:24→20:43)
[2016-07-05] MEDS: NICOTINE 21 MG/24 HR PATCH.TD24 TD SCH (20:42)
[2016-07-06] MEDS: ALBUTEROL/IPRATROPIUM 2.5MG/0.5MG, 3 ML NPPB SCH ×6 (02:24→22:20)
[2016-07-06] MEDS: OXYcodone 5 MG/5 ML ORAL.SOL UDC NG PRN ×4 (03:11→20:50)
[2016-07-06 04:46] LABS: ABG COLLECTION SITE LEFT RADIAL; COLLATERAL CIRCULATION TESTING NORMAL
[2016-07-06 05:03] LABS: BLOOD UREA NITROGEN 45 mg/dL (7-18)
[2016-07-06 05:41] LABS: DIFF TOTAL CELLS COUNTED 100 CELL DIFF
[2016-07-06 05:42] LABS: ANISOCYTOSIS 1+; VERIFY COUNTS? YES
[2016-07-06 05:43] LABS: POLYCHROMASIA 1+
[2016-07-06] MEDS: MEROPENEM 500 MG in SODIUM CHLORIDE 0.9% 100 ML IV SCH ×3 (05:56→22:08)
[2016-07-06] MEDS: SODIUM CHLORIDE FLUSH 10ML SYR IVF SCH ×2 (08:52→20:50)
[2016-07-06] MEDS: PANTOPRAZOLE 40 MG IV IVPush SCH (10:22)
[2016-07-06] MEDS: LORazepam 2 MG/ML, 1ML IVPush PRN (10:22)
[2016-07-06] MEDS: THIAMINE 100MG TABLET PO SCH (10:23)
[2016-07-06] MEDS: DOCUSATE 50 MG/5 ML, 10ML UDC PO SCH ×2 (10:23→20:50)
[2016-07-06] MEDS: GABAPENTIN 300 MG CAPSULE PO SCH ×3 (10:23→20:49)
[2016-07-06] MEDS: MULTIVITAMINS/MINERALS TABLET PO SCH (10:23)
[2016-07-06] MEDS: AMLODIPINE 5 MG TABLET PO SCH (10:23)
[2016-07-06] MEDS: FOLIC ACID 1 MG TABLET PO SCH (10:23)
[2016-07-06] MEDS: QUETIAPINE 25MG TABLET NG SCH ×2 (10:23→20:50)
[2016-07-06] MEDS: NICOTINE 21 MG/24 HR PATCH.TD24 TD SCH (20:49)
[2016-07-07] MEDS: ALBUTEROL/IPRATROPIUM 2.5MG/0.5MG, 3 ML NPPB SCH ×6 (02:19→22:11)
[2016-07-07 04:33] LABS: ABG COLLECTION SITE RIGHT RADIAL; COLLATERAL CIRCULATION TESTING NORMAL
[2016-07-07] MEDS: OXYcodone 5 MG/5 ML ORAL.SOL UDC NG PRN ×2 (05:04→18:29)
[2016-07-07] MEDS: ACETAMINOPHEN 325 MG TABLET PO PRN (05:07)
[2016-07-07] MEDS ORDERED: ACETAMINOPHEN 650 MG/20.3 ML UDC ONE (05:07)
[2016-07-07 05:11] LABS: DIFF TOTAL CELLS COUNTED 100 CELL DIFF
[2016-07-07 05:17] LABS: VERIFY COUNTS? YES
[2016-07-07 05:18] LABS: ANISOCYTOSIS 1+; POLYCHROMASIA 1+
[2016-07-07] MEDS: MEROPENEM 500 MG in SODIUM CHLORIDE 0.9% 100 ML IV SCH (06:03)
[2016-07-07] MEDS ORDERED: MAGNESIUM SULFATE PMX 2GM/50ML 50 ML IV ONE (07:30)
[2016-07-07] MEDS: LORazepam 2 MG/ML, 1ML IVPush PRN (08:06)
[2016-07-07] MEDS: THIAMINE 100MG TABLET PO SCH (09:08)
[2016-07-07] MEDS: AMLODIPINE 5 MG TABLET PO SCH (09:08)
[2016-07-07] MEDS: FOLIC ACID 1 MG TABLET PO SCH (09:08)
[2016-07-07] MEDS: MULTIVITAMINS/MINERALS TABLET PO SCH (09:08)
[2016-07-07] MEDS: DOCUSATE 50 MG/5 ML, 10ML UDC PO SCH ×2 (09:09→20:22)
[2016-07-07] MEDS: QUETIAPINE 25MG TABLET NG SCH ×2 (09:09→20:22)
[2016-07-07] MEDS: PANTOPRAZOLE 40 MG IV IVPush SCH (09:09)
[2016-07-07] MEDS: GABAPENTIN 300 MG CAPSULE PO SCH ×3 (09:09→20:22)
[2016-07-07] MEDS: SODIUM CHLORIDE FLUSH 10ML SYR IVF SCH ×2 (09:09→21:00)
[2016-07-07] MEDS: NICOTINE 21 MG/24 HR PATCH.TD24 TD SCH (20:22)
[2016-07-08] MEDS: ALBUTEROL/IPRATROPIUM 2.5MG/0.5MG, 3 ML NPPB SCH ×5 (03:00→23:00)
[2016-07-08] MEDS: OXYcodone 5 MG/5 ML ORAL.SOL UDC NG PRN ×4 (03:23→20:56)
[2016-07-08 04:27] LABS: ABG COLLECTION SITE LEFT RADIAL; COLLATERAL CIRCULATION TESTING NORMAL; FIO2 50 %
[2016-07-08 06:50] LABS: DIFF TOTAL CELLS COUNTED 100 CELL DIFF
[2016-07-08 07:00] LABS: ANISOCYTOSIS 1+; POLYCHROMASIA 1+; VERIFY COUNTS? YES
[2016-07-08] MEDS: MULTIVITAMINS/MINERALS TABLET PO SCH (08:37)
[2016-07-08] MEDS: PANTOPRAZOLE 40 MG IV IVPush SCH (08:37)
[2016-07-08] MEDS: FOLIC ACID 1 MG TABLET PO SCH (08:37)
[2016-07-08] MEDS: AMLODIPINE 5 MG TABLET PO SCH (08:37)
[2016-07-08] MEDS: QUETIAPINE 25MG TABLET NG SCH ×2 (08:38→20:56)
[2016-07-08] MEDS: LORazepam 2 MG/ML, 1ML IVPush PRN ×4 (08:38→23:55)
[2016-07-08] MEDS: THIAMINE 100MG TABLET PO SCH (08:38)
[2016-07-08] MEDS: SODIUM CHLORIDE FLUSH 10ML SYR IVF SCH ×2 (08:38→21:00)
[2016-07-08] MEDS: GABAPENTIN 300 MG CAPSULE PO SCH ×3 (08:38→20:55)
[2016-07-08] MEDS: DOCUSATE 50 MG/5 ML, 10ML UDC PO SCH ×2 (08:38→20:56)
[2016-07-08] MEDS: NICOTINE 21 MG/24 HR PATCH.TD24 TD SCH (21:00)
[2016-07-09] MEDS: ALBUTEROL/IPRATROPIUM 2.5MG/0.5MG, 3 ML NPPB SCH ×3 (01:23→21:09)
[2016-07-09] MEDS: LORazepam 2 MG/ML, 1ML IVPush PRN ×2 (02:21→05:03)
[2016-07-09] MEDS: OXYcodone 5 MG/5 ML ORAL.SOL UDC NG PRN ×3 (02:21→10:08)
[2016-07-09 03:19] LABS: DIFF TOTAL CELLS COUNTED 100 CELL DIFF
[2016-07-09 03:21] LABS: ANISOCYTOSIS 1+; OVALOCYTES 1+; POLYCHROMASIA 1+; VERIFY COUNTS? YES
[2016-07-09 03:22] LABS: LARGE PLATELETS 1+
[2016-07-09 05:41] LABS: ABG COLLECTION SITE RIGHT RADIAL; COLLATERAL CIRCULATION TESTING NORMAL
[2016-07-09 07:39] LABS: ASPARTATE AMINO TRANSFERASE 35 U/L (15-37); BLOOD UREA NITROGEN 33 mg/dL (7-18)
[2016-07-09 09:46] LABS: ABG COLLECTION SITE LEFT RADIAL; COLLATERAL CIRCULATION TESTING NORMAL
[2016-07-09] MEDS: PANTOPRAZOLE 40 MG IV IVPush SCH (10:07)
[2016-07-09] MEDS: QUETIAPINE 25MG TABLET NG SCH ×2 (10:07→20:33)
[2016-07-09] MEDS: FOLIC ACID 1 MG TABLET PO SCH (10:07)
[2016-07-09] MEDS: MULTIVITAMINS/MINERALS TABLET PO SCH (10:07)
[2016-07-09] MEDS: GABAPENTIN 300 MG CAPSULE PO SCH ×3 (10:07→20:34)
[2016-07-09] MEDS: THIAMINE 100MG TABLET PO SCH (10:07)
[2016-07-09] MEDS: DOCUSATE 50 MG/5 ML, 10ML UDC PO SCH ×2 (10:08→20:34)
[2016-07-09] MEDS: SODIUM CHLORIDE FLUSH 10ML SYR IVF SCH ×2 (10:08→20:33)
[2016-07-09] MEDS: AMLODIPINE 5 MG TABLET PO SCH (10:15)
[2016-07-09 16:00] VITALS: BP 116/70
[2016-07-09] MEDS: ACETAMINOPHEN 650 MG/20.3 ML UDC PO PRN (16:20)
[2016-07-09] MEDS: NICOTINE 21 MG/24 HR PATCH.TD24 TD SCH (20:29)
[2016-07-10] MEDS: LIDOCAINE-MPF 1%, 2ML ENDO PRN (00:43)
[2016-07-10] MEDS: ACETAMINOPHEN 650 MG/20.3 ML UDC PO PRN ×2 (01:35→09:21)
[2016-07-10] MEDS: ALBUTEROL/IPRATROPIUM 2.5MG/0.5MG, 3 ML NPPB SCH ×6 (01:54→23:00)
[2016-07-10 04:00] VITALS: BP 110/64
[2016-07-10 05:02] LABS: ABG COLLECTION SITE LEFT RADIAL; COLLATERAL CIRCULATION TESTING NORMAL
[2016-07-10] MEDS: PANTOPRAZOLE 40 MG IV IVPush SCH (09:15)
[2016-07-10] MEDS: AMLODIPINE 5 MG TABLET PO SCH (09:19)
[2016-07-10] MEDS: MULTIVITAMINS/MINERALS TABLET PO SCH (09:20)
[2016-07-10] MEDS: THIAMINE 100MG TABLET PO SCH (09:20)
[2016-07-10] MEDS: QUETIAPINE 25MG TABLET NG SCH ×2 (09:20→21:49)
[2016-07-10] MEDS: FOLIC ACID 1 MG TABLET PO SCH (09:20)
[2016-07-10] MEDS: DOCUSATE 50 MG/5 ML, 10ML UDC PO SCH ×2 (09:21→20:46)
[2016-07-10] MEDS: GABAPENTIN 300 MG CAPSULE PO SCH ×3 (09:21→20:46)
[2016-07-10] MEDS: SODIUM CHLORIDE FLUSH 10ML SYR IVF SCH ×2 (09:22→20:46)
[2016-07-10] MEDS: OXYcodone 5 MG/5 ML ORAL.SOL UDC NG PRN (20:46)
[2016-07-11] MEDS: LORazepam 2 MG/ML, 1ML IVPush PRN ×4 (02:34→20:47)
[2016-07-11] MEDS: ALBUTEROL/IPRATROPIUM 2.5MG/0.5MG, 3 ML NPPB SCH ×6 (03:00→22:00)
[2016-07-11 05:01] LABS: ABG COLLECTION SITE LEFT RADIAL; COLLATERAL CIRCULATION TESTING NORMAL
[2016-07-11] MEDS: PANTOPRAZOLE 40 MG IV IVPush SCH (08:58)
[2016-07-11] MEDS: SODIUM CHLORIDE FLUSH 10ML SYR IVF SCH ×2 (08:58→20:44)
[2016-07-11] MEDS: QUETIAPINE 25MG TABLET NG SCH ×2 (08:59→20:44)
[2016-07-11] MEDS: DOCUSATE 50 MG/5 ML, 10ML UDC PO SCH ×2 (09:00→20:45)
[2016-07-11] MEDS: FOLIC ACID 1 MG TABLET PO SCH (09:00)
[2016-07-11] MEDS: OXYcodone 5 MG/5 ML ORAL.SOL UDC NG PRN ×3 (09:00→20:45)
[2016-07-11] MEDS: GABAPENTIN 300 MG CAPSULE PO SCH ×3 (09:00→20:44)
[2016-07-11] MEDS: MULTIVITAMINS/MINERALS TABLET PO SCH (09:01)
[2016-07-11] MEDS: THIAMINE 100MG TABLET PO SCH (09:03)
[2016-07-11] MEDS: AMLODIPINE 5 MG TABLET PO SCH (09:03)
[2016-07-11] MEDS: ACETAMINOPHEN 650 MG/20.3 ML UDC PO PRN (15:42)
[2016-07-12] MEDS: ALBUTEROL/IPRATROPIUM 2.5MG/0.5MG, 3 ML NPPB SCH ×6 (01:53→22:15)
[2016-07-12] MEDS: LORazepam 2 MG/ML, 1ML IVPush PRN ×5 (03:33→21:11)
[2016-07-12] MEDS: OXYcodone 5 MG/5 ML ORAL.SOL UDC NG PRN ×4 (03:33→21:11)
[2016-07-12] MEDS: MORPHINE SULFATE 4 MG/ML, 1ML IVPush PRN ×2 (03:33→21:11)
[2016-07-12] MEDS: THIAMINE 100MG TABLET PO SCH (07:25)
[2016-07-12] MEDS: MULTIVITAMINS/MINERALS TABLET PO SCH (07:25)
[2016-07-12] MEDS: AMLODIPINE 5 MG TABLET PO SCH (07:25)
[2016-07-12] MEDS: GABAPENTIN 300 MG CAPSULE PO SCH ×3 (07:25→21:05)
[2016-07-12] MEDS: DOCUSATE 50 MG/5 ML, 10ML UDC PO SCH ×2 (07:25→21:05)
[2016-07-12] MEDS: QUETIAPINE 25MG TABLET NG SCH ×2 (07:25→21:05)
[2016-07-12] MEDS: FOLIC ACID 1 MG TABLET PO SCH (07:25)
[2016-07-12] MEDS: PANTOPRAZOLE 40 MG IV IVPush SCH (07:25)
[2016-07-12] MEDS: SODIUM CHLORIDE FLUSH 10ML SYR IVF SCH ×2 (07:26→21:04)
[2016-07-12] MEDS ORDERED: PROPOFOL 10 MG/ML, 50ML ONE (11:25)
[2016-07-12] MEDS ORDERED: FUROSEMIDE 40 MG/4 ML IV ONE (13:00)
[2016-07-13] MEDS: ALBUTEROL/IPRATROPIUM 2.5MG/0.5MG, 3 ML NPPB SCH ×6 (02:00→22:05)
[2016-07-13] MEDS: MORPHINE SULFATE 4 MG/ML, 1ML IVPush PRN ×2 (03:05→21:08)
[2016-07-13] MEDS: LORazepam 2 MG/ML, 1ML IVPush PRN ×4 (03:05→21:08)
[2016-07-13] MEDS: PANTOPRAZOLE 40 MG IV IVPush SCH (07:52)
[2016-07-13] MEDS: MULTIVITAMINS/MINERALS TABLET PO SCH (07:53)
[2016-07-13] MEDS: SODIUM CHLORIDE FLUSH 10ML SYR IVF SCH ×2 (07:53→21:08)
[2016-07-13] MEDS: DOCUSATE 50 MG/5 ML, 10ML UDC PO SCH ×3 (07:53→21:08)
[2016-07-13] MEDS: GABAPENTIN 300 MG CAPSULE PO SCH ×4 (07:53→21:08)
[2016-07-13] MEDS: THIAMINE 100MG TABLET PO SCH (07:53)
[2016-07-13] MEDS: AMLODIPINE 5 MG TABLET PO SCH (07:53)
[2016-07-13] MEDS: FOLIC ACID 1 MG TABLET PO SCH (07:53)
[2016-07-13] MEDS: OXYcodone 5 MG/5 ML ORAL.SOL UDC NG PRN ×3 (07:53→17:44)
[2016-07-13] MEDS: QUETIAPINE 25MG TABLET NG SCH ×3 (07:54→21:07)
[2016-07-13] MEDS: ACETAMINOPHEN 650 MG/20.3 ML UDC PO PRN (13:41)
[2016-07-14] MEDS: MORPHINE SULFATE 4 MG/ML, 1ML IVPush PRN ×4 (01:08→20:44)
[2016-07-14] MEDS: LORazepam 2 MG/ML, 1ML IVPush PRN ×4 (01:08→20:44)
[2016-07-14] MEDS: ALBUTEROL/IPRATROPIUM 2.5MG/0.5MG, 3 ML NPPB SCH ×6 (02:00→22:04)
[2016-07-14] MEDS: ZIPRASIDONE 20 MG INJ IM PRN (02:25)
[2016-07-14 05:21] LABS: BLOOD UREA NITROGEN 34 mg/dL (7-18)
[2016-07-14] MEDS: MULTIVITAMINS/MINERALS TABLET PO SCH (09:00)
[2016-07-14] MEDS: SODIUM CHLORIDE FLUSH 10ML SYR IVF SCH ×2 (09:00→20:44)
[2016-07-14] MEDS: QUETIAPINE 25MG TABLET NG SCH ×2 (09:00→21:27)
[2016-07-14] MEDS: AMLODIPINE 5 MG TABLET PO SCH (09:00)
[2016-07-14] MEDS: FOLIC ACID 1 MG TABLET PO SCH (09:00)
[2016-07-14] MEDS: THIAMINE 100MG TABLET PO SCH (09:00)
[2016-07-14] MEDS: DOCUSATE 50 MG/5 ML, 10ML UDC PO SCH ×2 (09:00→21:00)
[2016-07-14] MEDS: GABAPENTIN 300 MG CAPSULE PO SCH ×3 (09:00→21:26)
[2016-07-14] MEDS: PANTOPRAZOLE 40 MG IV IVPush SCH (09:00)
[2016-07-14] MEDS ORDERED: FUROSEMIDE 40 MG/4 ML ONE (13:51)
[2016-07-14] MEDS ORDERED: FUROSEMIDE 40 MG/4 ML IV ONE (14:00)
[2016-07-14] MEDS ORDERED: CEFAZOLIN PMX 2GM/50ML 50 ML IVPB ONE (14:30)
[2016-07-14] MEDS ORDERED: MIDAZOLAM 1 MG/ML, 5ML ONE (15:26)
[2016-07-14] MEDS ORDERED: FENTANYL PF 100 MCG/2ML ONE (15:26)
[2016-07-14] MEDS ORDERED: CEFAZOLIN 1,000 MG ONE (16:06)
[2016-07-15] MEDS: OXYcodone 5 MG/5 ML ORAL.SOL UDC NG PRN ×2 (00:41→21:01)
[2016-07-15] MEDS: ALBUTEROL/IPRATROPIUM 2.5MG/0.5MG, 3 ML NPPB SCH ×6 (02:15→22:21)
[2016-07-15] MEDS: MORPHINE SULFATE 4 MG/ML, 1ML IVPush PRN ×2 (04:10→09:53)
[2016-07-15 05:26] LABS: ASPARTATE AMINO TRANSFERASE 30 U/L (15-37); BLOOD UREA NITROGEN 44 mg/dL (7-18)
[2016-07-15] MEDS: DOCUSATE 50 MG/5 ML, 10ML UDC PO SCH ×2 (09:00→20:11)
[2016-07-15] MEDS: AMLODIPINE 5 MG TABLET PO SCH (09:07)
[2016-07-15] MEDS: SODIUM CHLORIDE FLUSH 10ML SYR IVF SCH ×2 (09:08→20:12)
[2016-07-15] MEDS: FOLIC ACID 1 MG TABLET PO SCH (09:08)
[2016-07-15] MEDS: GABAPENTIN 300 MG CAPSULE PO SCH ×3 (09:08→20:11)
[2016-07-15] MEDS: QUETIAPINE 25MG TABLET NG SCH ×2 (09:08→20:11)
[2016-07-15] MEDS: THIAMINE 100MG TABLET PO SCH (09:08)
[2016-07-15] MEDS: MULTIVITAMINS/MINERALS TABLET PO SCH (09:08)
[2016-07-15] MEDS: PANTOPRAZOLE 40 MG IV IVPush SCH (09:08)
[2016-07-15] MEDS: FONDAPARINUX 7.5 MG/0.6 ML SQ SCH (10:40)
[2016-07-15] MEDS: LORazepam 2 MG/ML, 1ML IVPush PRN (13:06)
[2016-07-15] MEDS ORDERED: FUROSEMIDE 20 MG/2 ML IV ONE (18:00)
[2016-07-15] MEDS ORDERED: ALBUMIN HUMAN 25% 50 ML IV SCH (18:00)
[2016-07-15] MEDS ORDERED: ALBUMIN HUMAN 25% 50 ML IV ONE (19:00)
[2016-07-16 00:07] LABS: BLOOD UREA NITROGEN 50 mg/dL (7-18)
[2016-07-16] MEDS: ALBUTEROL/IPRATROPIUM 2.5MG/0.5MG, 3 ML NPPB SCH ×5 (03:08→21:58)
[2016-07-16] MEDS: DOCUSATE 50 MG/5 ML, 10ML UDC PO SCH ×2 (09:00→20:11)
[2016-07-16] MEDS: PANTOPRAZOLE 40 MG IV IVPush SCH (10:00)
[2016-07-16] MEDS: AMLODIPINE 5 MG TABLET PO SCH (10:02)
[2016-07-16] MEDS: GABAPENTIN 300 MG CAPSULE PO SCH ×3 (10:02→20:11)
[2016-07-16] MEDS: QUETIAPINE 25MG TABLET NG SCH ×2 (10:02→20:11)
[2016-07-16] MEDS: FOLIC ACID 1 MG TABLET PO SCH (10:02)
[2016-07-16] MEDS: THIAMINE 100MG TABLET PO SCH (10:02)
[2016-07-16] MEDS: MULTIVITAMINS/MINERALS TABLET PO SCH (10:02)
[2016-07-16] MEDS: FONDAPARINUX 7.5 MG/0.6 ML SQ SCH (10:10)
[2016-07-16] MEDS: SODIUM CHLORIDE FLUSH 10ML SYR IVF SCH ×2 (10:11→20:12)
[2016-07-16] MEDS: OXYcodone 5 MG/5 ML ORAL.SOL UDC NG PRN ×2 (11:24→20:12)
[2016-07-16] MEDS: LORazepam 2 MG/ML, 1ML IVPush PRN ×3 (13:48→21:17)
[2016-07-16] MEDS: MORPHINE SULFATE 4 MG/ML, 1ML IVPush PRN (21:17)
[2016-07-17] MEDS: LORazepam 2 MG/ML, 1ML IVPush PRN ×3 (00:48→20:04)
[2016-07-17] MEDS: ALBUTEROL/IPRATROPIUM 2.5MG/0.5MG, 3 ML NPPB SCH ×6 (02:03→21:59)
[2016-07-17] MEDS: MORPHINE SULFATE 4 MG/ML, 1ML IVPush PRN ×2 (02:51→14:26)
[2016-07-17 04:42] LABS: BLOOD UREA NITROGEN 48 mg/dL (7-18)
[2016-07-17] MEDS: PANTOPRAZOLE 40 MG IV IVPush SCH (09:45)
[2016-07-17] MEDS: SODIUM CHLORIDE FLUSH 10ML SYR IVF SCH ×2 (09:45→21:11)
[2016-07-17] MEDS: FONDAPARINUX 7.5 MG/0.6 ML SQ SCH (09:46)
[2016-07-17] MEDS: QUETIAPINE 25MG TABLET NG SCH ×2 (09:46→21:11)
[2016-07-17] MEDS: DOCUSATE 50 MG/5 ML, 10ML UDC PO SCH ×2 (09:46→21:11)
[2016-07-17] MEDS: AMLODIPINE 5 MG TABLET PO SCH (09:47)
[2016-07-17] MEDS: MULTIVITAMINS/MINERALS TABLET PO SCH (09:47)
[2016-07-17] MEDS: FOLIC ACID 1 MG TABLET PO SCH (09:47)
[2016-07-17] MEDS: GABAPENTIN 300 MG CAPSULE PO SCH ×3 (09:47→21:11)
[2016-07-17] MEDS: THIAMINE 100MG TABLET PO SCH (09:48)
[2016-07-17] MEDS: OXYcodone 5 MG/5 ML ORAL.SOL UDC NG PRN ×3 (10:44→21:11)
[2016-07-18] MEDS: ALBUTEROL/IPRATROPIUM 2.5MG/0.5MG, 3 ML NPPB SCH ×6 (02:46→22:11)
[2016-07-18] MEDS: OXYcodone 5 MG/5 ML ORAL.SOL UDC NG PRN ×3 (04:01→16:13)
[2016-07-18 06:13] LABS: ASPARTATE AMINO TRANSFERASE 34 U/L (15-37); BLOOD UREA NITROGEN 43 mg/dL (7-18)
[2016-07-18] MEDS ORDERED: ALBUMIN HUMAN 25% 100 ML IV ONE (09:00)
[2016-07-18] MEDS ORDERED: FUROSEMIDE 20 MG/2 ML IV ONE (09:00)
[2016-07-18] MEDS: DOCUSATE 50 MG/5 ML, 10ML UDC PO SCH ×2 (09:05→19:50)
[2016-07-18] MEDS: QUETIAPINE 25MG TABLET NG SCH ×2 (09:05→19:51)
[2016-07-18] MEDS: FOLIC ACID 1 MG TABLET PO SCH (09:05)
[2016-07-18] MEDS: MULTIVITAMINS/MINERALS TABLET PO SCH (09:06)
[2016-07-18] MEDS: THIAMINE 100MG TABLET PO SCH (09:06)
[2016-07-18] MEDS: AMLODIPINE 5 MG TABLET PO SCH (09:07)
[2016-07-18] MEDS: GABAPENTIN 300 MG CAPSULE PO SCH ×3 (09:07→19:50)
[2016-07-18] MEDS: FONDAPARINUX 7.5 MG/0.6 ML SQ SCH (09:07)
[2016-07-18] MEDS: SODIUM CHLORIDE FLUSH 10ML SYR IVF SCH ×2 (09:59→23:10)
[2016-07-19] MEDS: ALBUTEROL/IPRATROPIUM 2.5MG/0.5MG, 3 ML NPPB SCH ×6 (03:00→22:21)
[2016-07-19] MEDS: OXYcodone 5 MG/5 ML ORAL.SOL UDC NG PRN ×4 (05:14→20:14)
[2016-07-19] MEDS: DOCUSATE 50 MG/5 ML, 10ML UDC PO SCH ×2 (09:37→20:14)
[2016-07-19] MEDS: THIAMINE 100MG TABLET PO SCH (09:37)
[2016-07-19] MEDS: MULTIVITAMINS/MINERALS TABLET PO SCH (09:37)
[2016-07-19] MEDS: AMLODIPINE 5 MG TABLET PO SCH (09:37)
[2016-07-19] MEDS: QUETIAPINE 25MG TABLET NG SCH ×2 (09:37→20:15)
[2016-07-19] MEDS: FOLIC ACID 1 MG TABLET PO SCH (09:37)
[2016-07-19] MEDS: GABAPENTIN 300 MG CAPSULE PO SCH ×3 (09:37→20:15)
[2016-07-19] MEDS: FONDAPARINUX 7.5 MG/0.6 ML SQ SCH (09:38)
[2016-07-19] MEDS: SODIUM CHLORIDE FLUSH 10ML SYR IVF SCH ×2 (20:06→20:07)
[2016-07-20] MEDS: ALBUTEROL/IPRATROPIUM 2.5MG/0.5MG, 3 ML NPPB SCH ×6 (02:29→21:30)
[2016-07-20] MEDS: OXYcodone 5 MG/5 ML ORAL.SOL UDC NG PRN ×3 (05:33→19:24)
[2016-07-20] MEDS: GABAPENTIN 300 MG CAPSULE PO SCH ×3 (09:48→20:35)
[2016-07-20] MEDS: DOCUSATE 50 MG/5 ML, 10ML UDC PO SCH ×2 (09:49→20:35)
[2016-07-20] MEDS: FOLIC ACID 1 MG TABLET PO SCH (09:49)
[2016-07-20] MEDS: MULTIVITAMINS/MINERALS TABLET PO SCH (09:49)
[2016-07-20] MEDS: THIAMINE 100MG TABLET PO SCH (09:49)
[2016-07-20] MEDS: QUETIAPINE 25MG TABLET NG SCH ×2 (09:49→20:35)
[2016-07-20] MEDS: FONDAPARINUX 7.5 MG/0.6 ML SQ SCH (09:58)
[2016-07-20] MEDS: AMLODIPINE 5 MG TABLET PO SCH (10:03)
[2016-07-20] MEDS: SODIUM CHLORIDE FLUSH 10ML SYR IVF SCH ×2 (15:34→19:20)
[2016-07-21] MEDS: ALBUTEROL/IPRATROPIUM 2.5MG/0.5MG, 3 ML NPPB SCH ×2 (01:45→06:42)
[2016-07-21] MEDS: OXYcodone 5 MG/5 ML ORAL.SOL UDC NG PRN (05:51)
[2016-07-21] MEDS ORDERED: Lorazepam IVPush (07:43)
[2016-07-21] MEDS ORDERED: LIDO10VI34 ENDO (07:43)
[2016-07-21] MEDS ORDERED: ACET1TAB64 PO (07:43)
[2016-07-21] MEDS ORDERED: THIA100T6 PO (07:43)
[2016-07-21] MEDS ORDERED: QUET25TA NG (07:43)
[2016-07-21] MEDS ORDERED: ONDA4VIA4 IVP (07:43)
[2016-07-21] MEDS ORDERED: HYDR20VI3 IV (07:43)
[2016-07-21] MEDS ORDERED: FOLI-17 PO (07:43)
[2016-07-21] MEDS ORDERED: BISA10SU65 PR (07:43)
[2016-07-21] MEDS ORDERED: OXYC5SOL8 NG (07:43)
[2016-07-21] MEDS ORDERED: IPRA3AMP NPPB (07:43)
[2016-07-21] MEDS ORDERED: GABA300C10 PO (07:43)
[2016-07-21] MEDS ORDERED: [UNRECOGNIZED DRUG - CODE] SQ (07:43)
[2016-07-21] MEDS ORDERED: ACET650S21 PO (07:43)
[2016-07-21] MEDS ORDERED: MORP4VIA IVPush (07:43)
[2016-07-21] MEDS ORDERED: MULT-484 PO (07:43)
[2016-07-21] MEDS ORDERED: AMLO5TAB2 PO (07:43)
[2016-07-21] MEDS: THIAMINE 100MG TABLET PO SCH (09:00)
[2016-07-21] MEDS: FOLIC ACID 1 MG TABLET PO SCH (09:00)
[2016-07-21] MEDS: MULTIVITAMINS/MINERALS TABLET PO SCH (09:00)
[2016-07-21] MEDS: QUETIAPINE 25MG TABLET NG SCH (09:00)
[2016-07-21] MEDS: AMLODIPINE 5 MG TABLET PO SCH (09:01)
[2016-07-21] MEDS: DOCUSATE 50 MG/5 ML, 10ML UDC PO SCH (09:01)
[2016-07-21] MEDS: FONDAPARINUX 7.5 MG/0.6 ML SQ SCH (09:01)
[2016-07-21] MEDS: GABAPENTIN 300 MG CAPSULE PO SCH (09:01)
== END 2016-07-21 13:20 | DRG 4 ==
LOC: ED 23:59 → EDIP 06-03 01:52 → 4WST 06-03 03:25 → ICU 06-05 21:15 → CCU 06-07 22:15 → 3NE 06-10 18:35 → CCU 06-11 19:00 → UNDODISIN 07-21 13:20
PROC: 05H633Z Insertion of Infusion Device into Left Subclavian Vein, Percutaneous Approach (ICD-10-PCS; 2016-06-08)
PROC: B547ZZA Ultrasonography of Left Subclavian Vein, Guidance (ICD-10-PCS; 2016-06-08)
PROC: 5A1955Z Respiratory Ventilation, Greater than 96 Consecutive Hours (ICD-10-PCS; 2016-06-11)
PROC: 0BH17EZ Insertion of Endotracheal Airway into Trachea, Via Natural or Artificial Opening (ICD-10-PCS; 2016-06-11)
PROC: 02HV33Z Insertion of Infusion Device into Superior Vena Cava, Percutaneous Approach (ICD-10-PCS; 2016-06-13)
PROC: B548ZZA Ultrasonography of Superior Vena Cava, Guidance (ICD-10-PCS; 2016-06-13)
PROC: 0B113F4 Bypass Trachea to Cutaneous with Tracheostomy Device, Percutaneous Approach (ICD-10-PCS; principal; 2016-06-21)
PROC: 0BJ08ZZ Inspection of Tracheobronchial Tree, Via Natural or Artificial Opening Endoscopic (ICD-10-PCS; 2016-06-21)
PROC: 0B9B8ZX Drainage of Left Lower Lobe Bronchus, Via Natural or Artificial Opening Endoscopic, Diagnostic (ICD-10-PCS; 2016-06-28)
PROC: 05H833Z Insertion of Infusion Device into Left Axillary Vein, Percutaneous Approach (ICD-10-PCS; 2016-06-30)
PROC: B54NZZA Ultrasonography of Left Upper Extremity Veins, Guidance (ICD-10-PCS; 2016-06-30)
PROC: 0BJ08ZZ Inspection of Tracheobronchial Tree, Via Natural or Artificial Opening Endoscopic (ICD-10-PCS; 2016-06-30)
PROC: 02HV33Z Insertion of Infusion Device into Superior Vena Cava, Percutaneous Approach (ICD-10-PCS; 2016-07-02)
PROC: B548ZZA Ultrasonography of Superior Vena Cava, Guidance (ICD-10-PCS; 2016-07-02)
PROC: 30233N1 Transfusion of Nonautologous Red Blood Cells into Peripheral Vein, Percutaneous Approach (ICD-10-PCS; 2016-07-03)
PROC: 0DH68UZ Insertion of Feeding Device into Stomach, Via Natural or Artificial Opening Endoscopic (ICD-10-PCS; 2016-07-15)
DX: A41.9 Sepsis, unspecified organism (principal); J96.21 Acute and chronic respiratory failure with hypoxia; J15.6 Pneumonia due to other Gram-negative bacteria; J15.212 Pneumonia due to Methicillin resistant Staphylococcus aureus; E43 Unspecified severe protein-calorie malnutrition; I50.43 Acute on chronic combined systolic (congestive) and diastolic (congestive) heart failure; J44.0 Chronic obstructive pulmonary disease with (acute) lower respiratory infection; B18.1 Chronic viral hepatitis B without delta-agent; N18.4 Chronic kidney disease, stage 4 (severe); I13.0 Hypertensive heart and chronic kidney disease with heart failure and stage 1 through stage 4 chronic kidney disease, or unspecified chronic kidney disease; D69.3 Immune thrombocytopenic purpura; I38 Endocarditis, valve unspecified; F10.239 Alcohol dependence with withdrawal, unspecified; E87.1 Hypo-osmolality and hyponatremia; I82.622 Acute embolism and thrombosis of deep veins of left upper extremity; J44.1 Chronic obstructive pulmonary disease with (acute) exacerbation; J98.11 Atelectasis; F10.231 Alcohol dependence with withdrawal delirium; J95.01 Hemorrhage from tracheostomy stoma; D68.4 Acquired coagulation factor deficiency; K76.6 Portal hypertension; Z99.11 Dependence on respirator [ventilator] status; B18.2 Chronic viral hepatitis C; Z86.14 Personal history of Methicillin resistant Staphylococcus aureus infection; I25.5 Ischemic cardiomyopathy; I34.0 Nonrheumatic mitral (valve) insufficiency; I25.10 Atherosclerotic heart disease of native coronary artery without angina pectoris; J40 Bronchitis, not specified as acute or chronic; F11.10 Opioid abuse, uncomplicated; F17.210 Nicotine dependence, cigarettes, uncomplicated; Z99.81 Dependence on supplemental oxygen; I48.0 Paroxysmal atrial fibrillation; D53.9 Nutritional anemia, unspecified; Z51.5 Encounter for palliative care; M79.7 Fibromyalgia; K70.40 Alcoholic hepatic failure without coma; G83.9 Paralytic syndrome, unspecified; G89.29 Other chronic pain; E03.9 Hypothyroidism, unspecified; K31.89 Other diseases of stomach and duodenum; R13.12 Dysphagia, oropharyngeal phase; Z86.718 Personal history of other venous thrombosis and embolism; Z86.73 Personal history of transient ischemic attack (TIA), and cerebral infarction without residual deficits; K70.31 Alcoholic cirrhosis of liver with ascites; D50.0 Iron deficiency anemia secondary to blood loss (chronic); F15.10 Other stimulant abuse, uncomplicated
CPT/HCPCS: 31622; 31624; 31629; 36415; 36569; 36600; 71010; 71250; 74000; 74176; 74230; 76700; 76937; 77001; 80048; 80053; 80061; 80202; 80307; 81001; 81003; 82140; 82330; 82436; 82542; 82803; 82947; 83690; 83735; 83880; 83930; 83935; 84132; 84133; 84295; 84300; 84478; 84484; 85014; 85018; 85025; 85027; 85610; 86703; 86850; 86900; 86923; 87040; 87070; 87077; 87081; 87186; 87205; 87324; 87400; 87899; 93005; 93306; 94002; 94003; 94640; 96374; 96375; J0456; J0690; J0696; J1940; J2185; J2250; J2405; J2543; J2704; J3010; J3360; J3370; J3411; J3486; J3490; J7042; J7620; P9047; 92523-GN; C1751; C9113; G0435; J0360; J1630; J1652; J2060; J2930; J3475; J7050; P9016; S0028

== ENCOUNTER 2016-08-24 13:51 | Emergency (ER) | payer MEDICAID ==
[~2016-08-24] VITALS: Ht 182.9 cm; Wt 90.2 kg
[~2016-08-24 13:51] MED LIST changes: +ACET1TAB64 PO; +ACET650S21 PO; -AZIT-14 PO; +AZIT250T89 PO; -AZIT500T4 PO; +AZIT500T77 PO; +BISA10SU65 PR; -CEFD300C2 PO; +CEFD300C37 PO; +FOLI-17 PO; +GABA300C10 PO; +HYDR20VI3 IV; +LIDO10VI34 ENDO; +Lorazepam IVPush; +MORP4VIA IVPush; +MULT-484 PO; +ONDA4VIA4 IVP; +OXYC5SOL8 NG; +QUET25TA NG; +THIA100T6 PO; +[UNRECOGNIZED DRUG - CODE] SQ
[2016-08-24 13:59] VITALS: BP 158/106
[2016-08-24] MEDS ORDERED: METO50TA82 PO (15:31)
[2016-08-24] MEDS ORDERED: LISI5TAB7 PO (15:31)
[2016-08-24] MEDS ORDERED: ASPI-496 PO (15:32)
== END 2016-08-24 15:44 | disposition home or self-care (01) ==
LOC: ED 15:38
DX: Z43.1 Encounter for attention to gastrostomy (principal); I12.9 Hypertensive chronic kidney disease with stage 1 through stage 4 chronic kidney disease, or unspecified chronic kidney disease; N18.4 Chronic kidney disease, stage 4 (severe); I25.2 Old myocardial infarction; B19.10 Unspecified viral hepatitis B without hepatic coma; B19.20 Unspecified viral hepatitis C without hepatic coma; J44.9 Chronic obstructive pulmonary disease, unspecified; I11.9 Hypertensive heart disease without heart failure; F17.200 Nicotine dependence, unspecified, uncomplicated; F10.20 Alcohol dependence, uncomplicated; Z87.01 Personal history of pneumonia (recurrent); Z86.73 Personal history of transient ischemic attack (TIA), and cerebral infarction without residual deficits; Z86.718 Personal history of other venous thrombosis and embolism; Z93.1 Gastrostomy status
CPT/HCPCS: 99281

== ENCOUNTER 2016-10-25 15:22 | Emergency (ER) | payer MEDICAID ==
[~2016-10-25] VITALS: Ht 182.9 cm; Wt 89.0 kg
[~2016-10-25 15:22] MED LIST changes: +ASPI-496 PO; +LISI5TAB7 PO; +METO50TA82 PO
[2016-10-25] MEDS ORDERED: SODIUM CHLORIDE 0.9% 1,000ML IVBOLUS ONE ×2 (15:30→17:00)
[2016-10-25] MEDS ORDERED: SODIUM CHLORIDE 0.9% 1,000 ML IV ONE (15:30)
[2016-10-25] MEDS ORDERED: SODIUM CHLORIDE FLUSH 10ML SYR IVF ONE (15:30)
[2016-10-25] MEDS ORDERED: MECLIZINE CHEWABLE 25 MG TAB PO ONE (15:30)
[2016-10-25] MEDS ORDERED: ONDANSETRON 2MG/ML, 2ML IVPush ONE ×2 (15:30→18:00)
[2016-10-25] MEDS ORDERED: LIDOCAINE 1%, 20ML ONE (16:05)
[2016-10-25] MEDS ORDERED: LIDOCAINE-MPF 2% ,5ML ONE (16:10)
[2016-10-25 16:20] LABS: ASPARTATE AMINO TRANSFERASE 89 U/L (15-37); BLOOD UREA NITROGEN 13 mg/dL (7-18)
[2016-10-25 16:32] LABS: IS PT STATUS REG ER OR PRE ER? YES
[2016-10-25 16:35] VITALS: BP 134/102
[2016-10-25] MEDS ORDERED: MECLIZINE CHEWABLE 25 MG TAB ONE (16:44)
[2016-10-25] MEDS ORDERED: ONDANSETRON 2MG/ML, 2ML ONE (16:44)
[2016-10-25] MEDS ORDERED: THIAMINE 100MG TABLET ONE (17:51)
[2016-10-25] MEDS ORDERED: THIAMINE 100MG TABLET PO ONE (18:00)
== END 2016-10-25 18:18 | disposition home or self-care (01) ==
LOC: ED 18:12
DX: R42 Dizziness and giddiness (principal); F10.229 Alcohol dependence with intoxication, unspecified; R11.2 Nausea with vomiting, unspecified; I10 Essential (primary) hypertension
CPT/HCPCS: 36415; 70450; 71010; 80053; 80307; 80329; 82140; 83605; 84484; 85025; 85610; 93005; 96361; 96374; 99285; J2405; J7030; G0480

== ENCOUNTER 2016-10-26 19:31 | Inpatient (IN) | payer MEDICAID ==
[~2016-10-26] VITALS: Ht 182.9 cm; Wt 84.2 kg
[2016-10-26] MEDS ORDERED: THIAMINE 100MG TABLET PO ONE (20:00)
[2016-10-26] MEDS ORDERED: PLEASE ENTER HEIGHT AND WEIGHT MC SCH (20:00)
[2016-10-26] MEDS ORDERED: MAGNESIUM SULFATE 1 GM/2 ML IVPush ONE (20:00)
[2016-10-26 20:18] LABS: ANISOCYTOSIS 2+; MICROCYTOSIS 1+; SCHISTOCYTES 1+; SPHEROCYTES 1+
[2016-10-26] MEDS ORDERED: MAGNESIUM SULFATE 1 GM in SODIUM CHLORIDE 0.9% 50 ML IV ONE (20:30)
[2016-10-26] MEDS ORDERED: SODIUM CHLORIDE 0.9% 1,000ML IVBOLUS ONE (20:30)
[2016-10-26] MEDS ORDERED: CHLORDIAZEPOXIDE 25 MG CAPSULE PO PRN (20:30)
[2016-10-26] MEDS ORDERED: LORazepam 2 MG/ML, 1ML ONE ×2 (21:03→22:43)
[2016-10-26] MEDS ORDERED: THIAMINE 100MG TABLET ONE (21:07)
[2016-10-26] MEDS: LORazepam 2 MG/ML, 1ML IVPush PRN ×2 (21:08→22:44)
[2016-10-26] MEDS ORDERED: D5%-0.45% NACL 1,000 ML IV SCH (21:30)
[2016-10-26] MEDS ORDERED: FOLIC ACID 1 MG TABLET PO ONE (22:00)
[2016-10-26] MEDS ORDERED: MULTIVITAMIN 1 TABLET PO ONE (22:00)
[2016-10-26] MEDS ORDERED: POTASSIUM CHLORIDE 20 MEQ, MAGNESIUM SULFATE 2 GM, THIAMINE 100 MG, MVI ADULT 10 ML, FO... IV SCH (22:40)
[2016-10-26] MEDS ORDERED: NS + 20MEQ KCL 1,000 ML IV SCH (22:40)
[2016-10-26] MEDS ORDERED: BISACODYL 10 MG SUPP PR PRN (23:00)
[2016-10-26] MEDS ORDERED: ACETAMINOPHEN 325 MG TABLET PO PRN (23:00)
[2016-10-26] MEDS: ALBUTEROL/IPRATROPIUM 2.5MG/0.5MG, 3 ML NPPB SCH (23:00)
[2016-10-26] MEDS ORDERED: POLYETHYLENE GLYCOL 17 GM PACKET PO PRN (23:00)
[2016-10-26] MEDS ORDERED: LABETALOL 5MG/ML 40ML VIAL IVPush PRN (23:00)
[2016-10-26] MEDS ORDERED: ONDANSETRON 2MG/ML, 2ML IVPush PRN (23:00)
[2016-10-26] MEDS ORDERED: DOCUSATE 100 MG CAPSULE PO PRN (23:00)
[2016-10-26] MEDS ORDERED: HYDROcodone/APAP 5/325 TABLET PO PRN (23:00)
[2016-10-27] MEDS ORDERED: CEFTRIAXONE PMX 1GM/50ML 50 ML IV SCH
[2016-10-27] MEDS: ALBUTEROL/IPRATROPIUM 2.5MG/0.5MG, 3 ML NPPB SCH ×3 (01:50→11:00)
[2016-10-27 01:57] VITALS: BP 151/95
[2016-10-27] MEDS: LORazepam 2 MG/ML, 1ML IVPush PRN ×4 (02:09→11:38)
[2016-10-27] MEDS: METRONIDAZOLE PMX 500MG/100ML 100 ML IV SCH ×2 (02:10→10:01)
[2016-10-27 04:11] VITALS: BP 147/92
[2016-10-27 04:39] LABS: PATH.CAST-FLAG NOT PRESENT; SPERM-FLAG NOT PRESENT; SRC-FLAG NOT PRESENT; XTAL-FLAG NOT PRESENT; YLC-FLAG NOT PRESENT
[2016-10-27 06:07] LABS: BLOOD UREA NITROGEN 16 mg/dL (7-18)
[2016-10-27 07:05] VITALS: BP 183/93
[2016-10-27] MEDS ORDERED: ASPIRIN 81 MG TABLET EC PO SCH (09:00)
[2016-10-27] MEDS ORDERED: BACLOFEN 10 MG TABLET PO SCH (09:00)
[2016-10-27] MEDS ORDERED: METOPROLOL TARTRATE 50 MG TABLET PO SCH (09:00)
[2016-10-27] MEDS ORDERED: FOLIC ACID 1 MG TABLET PO SCH (09:00)
[2016-10-27] MEDS ORDERED: MULTIVITAMIN 1 TABLET PO SCH (09:00)
[2016-10-27] MEDS ORDERED: MAGNESIUM SULFATE PMX 2GM/50ML 50 ML IV ONE (09:30)
[2016-10-27 12:02] VITALS: BP 170/101
== END 2016-10-27 13:15 | disposition left against medical advice (07) | DRG 177 ==
LOC: MERGE 19:31 → EDBD 19:31 → ED 20:33 → EDIP 21:55 → 4EST 23:49
PROVIDERS: ADMIT Internal Medicine; ATTEND Internal Medicine
DX: J69.0 Pneumonitis due to inhalation of food and vomit (principal); J96.20 Acute and chronic respiratory failure, unspecified whether with hypoxia or hypercapnia; F10.239 Alcohol dependence with withdrawal, unspecified; I13.0 Hypertensive heart and chronic kidney disease with heart failure and stage 1 through stage 4 chronic kidney disease, or unspecified chronic kidney disease; I50.42 Chronic combined systolic (congestive) and diastolic (congestive) heart failure; N17.9 Acute kidney failure, unspecified; N18.4 Chronic kidney disease, stage 4 (severe); I42.9 Cardiomyopathy, unspecified; B19.10 Unspecified viral hepatitis B without hepatic coma; I38 Endocarditis, valve unspecified; E03.9 Hypothyroidism, unspecified; E86.0 Dehydration; I48.0 Paroxysmal atrial fibrillation; J44.9 Chronic obstructive pulmonary disease, unspecified; R56.9 Unspecified convulsions; Y90.8 Blood alcohol level of 240 mg/100 ml or more; I34.0 Nonrheumatic mitral (valve) insufficiency; Z53.21 Procedure and treatment not carried out due to patient leaving prior to being seen by health care provider; F17.210 Nicotine dependence, cigarettes, uncomplicated; B19.20 Unspecified viral hepatitis C without hepatic coma; D69.6 Thrombocytopenia, unspecified; Z86.14 Personal history of Methicillin resistant Staphylococcus aureus infection; Z87.01 Personal history of pneumonia (recurrent); Z79.82 Long term (current) use of aspirin; Z79.899 Other long term (current) drug therapy; Z88.8 Allergy status to other drugs, medicaments and biological substances; Z82.49 Family history of ischemic heart disease and other diseases of the circulatory system; R73.9 Hyperglycemia, unspecified
CPT/HCPCS: 36415; 70450; 71010; 80047; 80048; 80307; 81001; 82436; 82570; 83735; 84100; 84133; 84300; 85025; 85610; 85730; 87040; 87086; 93005; 94640; 96365; 96375; J0696; J3411; J3475; J3480; J7042; J7620; J2060; J7030

== ENCOUNTER 2016-12-05 11:14 | Emergency (ER) | payer MEDICAID ==
[~2016-12-05] VITALS: Ht 182.9 cm; Wt 88.5 kg
[2016-12-05] MEDS ORDERED: LORazepam 2 MG/ML, 1ML IVPush ONE (11:24)
[2016-12-05] MEDS ORDERED: SODIUM CHLORIDE FLUSH 10ML SYR IVF ONE (11:30)
[2016-12-05] MEDS ORDERED: PLEASE ENTER HEIGHT AND WEIGHT MC SCH (11:30)
[2016-12-05] MEDS ORDERED: LORazepam 2 MG/ML, 1ML ONE (11:54)
[2016-12-05 12:17] LABS: HEMATOCRIT 46.1 % (39.2-51.8); HEMOGLOBIN 15.1 g/dL (13.7-18.0); WHITE BLOOD COUNT 4.6 x10^3/uL (3.4-10)
[2016-12-05 12:30] LABS: ASPARTATE AMINO TRANSFERASE 71 U/L (15-37); BLOOD UREA NITROGEN 5 mg/dL (7-18)
[2016-12-05 12:35] LABS: IS PT STATUS REG ER OR PRE ER? YES
[2016-12-05] MEDS ORDERED: SODIUM CHLORIDE 0.9% 1,000 ML IV ONE (12:39)
[2016-12-05] MEDS ORDERED: ALBUTEROL/IPRATROPIUM 2.5MG/0.5MG, 3 ML NPPB ONE (13:00)
[2016-12-05 13:49] VITALS: BP 144/99
== END 2016-12-05 13:51 | disposition home or self-care (01) ==
LOC: ED 11:36
DX: J96.11 Chronic respiratory failure with hypoxia (principal); J44.1 Chronic obstructive pulmonary disease with (acute) exacerbation; I80.8 Phlebitis and thrombophlebitis of other sites; F10.239 Alcohol dependence with withdrawal, unspecified; F11.23 Opioid dependence with withdrawal; I48.91 Unspecified atrial fibrillation; I12.9 Hypertensive chronic kidney disease with stage 1 through stage 4 chronic kidney disease, or unspecified chronic kidney disease; N18.4 Chronic kidney disease, stage 4 (severe); I25.10 Atherosclerotic heart disease of native coronary artery without angina pectoris; E03.9 Hypothyroidism, unspecified; F17.200 Nicotine dependence, unspecified, uncomplicated; Z88.5 Allergy status to narcotic agent
CPT/HCPCS: 36415; 71010; 80053; 83605; 84484; 85025; 85610; 85730; 87040; 93005; 93971; 96374; 99285; J2060; J7512

== ENCOUNTER 2016-12-09 15:49 | Emergency (ER) | payer MEDICAID ==
[2016-12-09 15:55] VITALS: BP 122/76
== END 2016-12-09 16:24 | disposition left against medical advice (07) ==
LOC: ED 15:51
DX: R52 Pain, unspecified (principal); E03.9 Hypothyroidism, unspecified; I12.9 Hypertensive chronic kidney disease with stage 1 through stage 4 chronic kidney disease, or unspecified chronic kidney disease; N18.4 Chronic kidney disease, stage 4 (severe); I25.10 Atherosclerotic heart disease of native coronary artery without angina pectoris; I25.5 Ischemic cardiomyopathy; I48.0 Paroxysmal atrial fibrillation; J44.9 Chronic obstructive pulmonary disease, unspecified; F17.200 Nicotine dependence, unspecified, uncomplicated; Z88.8 Allergy status to other drugs, medicaments and biological substances
CPT/HCPCS: 99281

== ENCOUNTER 2016-12-14 01:27 | Emergency (ER) | payer MEDICAID ==
[~2016-12-14] VITALS: Ht 182.9 cm; Wt 90.0 kg
[~2016-12-14 01:27] MED LIST changes: +ASPI-696 PO; -ASPI81TA18 PO; +AZIT500T5 PO; -AZIT500T77 PO
[2016-12-14 01:36] VITALS: BP 159/104
[2016-12-14] MEDS ORDERED: LORazepam 2 MG/ML, 1ML ONE (01:43)
[2016-12-14] MEDS ORDERED: ONDANSETRON 2MG/ML, 2ML ONE (01:55)
[2016-12-14] MEDS ORDERED: ONDANSETRON 2MG/ML, 2ML IVPush ONE (02:00)
[2016-12-14] MEDS ORDERED: SODIUM CHLORIDE 0.9% 1,000ML IVBOLUS ONE (02:00)
[2016-12-14] MEDS ORDERED: LORazepam 2 MG/ML, 1ML IVPush ONE (02:00)
[2016-12-14 02:04] LABS: HEMATOCRIT 44.2 % (39.2-51.8); HEMOGLOBIN 14.4 g/dL (13.7-18.0); WHITE BLOOD COUNT 4.5 x10^3/uL (3.4-10)
[2016-12-14 02:14] LABS: ASPARTATE AMINO TRANSFERASE 120 U/L (15-37); BLOOD UREA NITROGEN 13 mg/dL (7-18)
[2016-12-14 02:21] LABS: IS PT STATUS REG ER OR PRE ER? YES
[2016-12-14] MEDS ORDERED: LISI-167 PO (14:42)
[2016-12-14] MEDS ORDERED: METO50TA82 PO (14:42)
== END 2016-12-14 03:25 | disposition home or self-care (01) ==
LOC: ED 01:57
DX: R07.2 Precordial pain (principal); F10.220 Alcohol dependence with intoxication, uncomplicated; J44.9 Chronic obstructive pulmonary disease, unspecified; E03.9 Hypothyroidism, unspecified; I25.10 Atherosclerotic heart disease of native coronary artery without angina pectoris; I12.9 Hypertensive chronic kidney disease with stage 1 through stage 4 chronic kidney disease, or unspecified chronic kidney disease; N18.4 Chronic kidney disease, stage 4 (severe); I25.5 Ischemic cardiomyopathy; I48.91 Unspecified atrial fibrillation; M79.7 Fibromyalgia; F17.200 Nicotine dependence, unspecified, uncomplicated
CPT/HCPCS: 36415; 71010; 80053; 80307; 83880; 84484; 85025; 93005; 96361; 96374; 96375; 99285; J2060; J2405; J7030

== ENCOUNTER 2016-12-14 14:00 | Emergency (ER) | payer MEDICAID ==
[~2016-12-14] VITALS: Ht 182.9 cm; Wt 89.0 kg
[2016-12-14 14:05] VITALS: BP 151/97
[2016-12-14] MEDS ORDERED: THIAMINE 100MG TABLET PO ONE (14:30)
[2016-12-14] MEDS ORDERED: LORazepam 1MG TABLET PO ONE (14:30)
[2016-12-14] MEDS ORDERED: THIAMINE 100MG TABLET ONE (14:36)
[2016-12-14] MEDS ORDERED: LORazepam 1MG TABLET ONE (14:36)
[2016-12-14] MEDS ORDERED: METO50TA82 PO (14:42)
[2016-12-14] MEDS ORDERED: LISI-167 PO (14:42)
== END 2016-12-14 15:49 | disposition left against medical advice (07) ==
LOC: EDBD 14:00 → MERGE 14:00 → ED 15:43
DX: F10.129 Alcohol abuse with intoxication, unspecified (principal); F11.129 Opioid abuse with intoxication, unspecified; F17.210 Nicotine dependence, cigarettes, uncomplicated; J44.9 Chronic obstructive pulmonary disease, unspecified
CPT/HCPCS: 99283

== ENCOUNTER 2016-12-14 16:43 | Emergency (ER) | payer MEDICAID ==
[~2016-12-14] VITALS: Ht 182.9 cm; Wt 88.5 kg
[2016-12-14 16:50] VITALS: BP 153/96
[2016-12-14] MEDS ORDERED: LORazepam 0.5MG TABLET PO ONE (18:30)
[2016-12-14] MEDS ORDERED: LORazepam 1MG TABLET ONE (19:05)
== END 2016-12-14 19:34 | disposition home or self-care (01) ==
LOC: ED 18:09
DX: F10.229 Alcohol dependence with intoxication, unspecified (principal); F19.20 Other psychoactive substance dependence, uncomplicated; Z72.9 Problem related to lifestyle, unspecified; Z86.718 Personal history of other venous thrombosis and embolism; E03.9 Hypothyroidism, unspecified; I25.2 Old myocardial infarction; I10 Essential (primary) hypertension; Z86.14 Personal history of Methicillin resistant Staphylococcus aureus infection; Z86.19 Personal history of other infectious and parasitic diseases
CPT/HCPCS: 36415; 80307; 93005; 99285

== ENCOUNTER 2016-12-15 11:21 | Emergency (ER) | payer MEDICAID ==
[~2016-12-15] VITALS: Ht 182.9 cm; Wt 85.4 kg
[~2016-12-15 11:21] MED LIST changes: +NICO1PAT16 TD; -NICO1PAT5 TD
[2016-12-15 11:24] VITALS: BP 153/100
[2016-12-15] MEDS ORDERED: SODIUM CHLORIDE 0.9% 1,000ML IVBOLUS ONE (12:30)
[2016-12-15] MEDS ORDERED: MAALOX/HYOSCYAMINE/LIDOCAINE 45 ML BTL PO ONE (12:30)
[2016-12-15] MEDS ORDERED: ONDANSETRON 2MG/ML, 2ML IVPush ONE (12:30)
[2016-12-15] MEDS ORDERED: FAMOTIDINE 20 MG/2 ML IVP ONE (12:30)
[2016-12-15] MEDS ORDERED: SODIUM CHLORIDE FLUSH 10ML SYR IVF ONE (12:30)
[2016-12-15] MEDS ORDERED: MAALOX/HYOSCYAMINE/LIDOCAINE 45 ML BTL ONE (12:39)
[2016-12-15 13:07] LABS: BLOOD UREA NITROGEN 10 mg/dL (7-18)
[2016-12-15 13:10] LABS: ASPARTATE AMINO TRANSFERASE 111 U/L (15-37)
[2016-12-15 13:23] LABS: HEMATOCRIT 40.2 % (39.2-51.8); HEMOGLOBIN 12.9 g/dL (13.7-18.0); WHITE BLOOD COUNT 4.3 x10^3/uL (3.4-10)
== END 2016-12-15 13:05 | disposition left against medical advice (07) ==
LOC: ED 12:59
DX: R10.84 Generalized abdominal pain (principal); F10.229 Alcohol dependence with intoxication, unspecified; E03.9 Hypothyroidism, unspecified; J44.9 Chronic obstructive pulmonary disease, unspecified; I48.91 Unspecified atrial fibrillation; I25.5 Ischemic cardiomyopathy; I12.9 Hypertensive chronic kidney disease with stage 1 through stage 4 chronic kidney disease, or unspecified chronic kidney disease; N18.4 Chronic kidney disease, stage 4 (severe); N17.9 Acute kidney failure, unspecified; I25.10 Atherosclerotic heart disease of native coronary artery without angina pectoris; I25.2 Old myocardial infarction
CPT/HCPCS: 36415; 80053; 83690; 85025; 93005; 99285

== ENCOUNTER 2016-12-20 14:24 | Emergency (ER) | payer MEDICAID ==
[~2016-12-20] VITALS: Ht 182.9 cm; Wt 88.0 kg
[2016-12-20] MEDS ORDERED: THIAMINE 100MG TABLET PO ONE (15:00)
[2016-12-20] MEDS ORDERED: LIDOCAINE 1%, 20ML SQ ONE (15:30)
[2016-12-20] MEDS ORDERED: THIAMINE 100MG TABLET ONE (15:33)
[2016-12-20] MEDS ORDERED: LIDOCAINE 1%, 20ML ONE (15:33)
[2016-12-20 15:38] LABS: BLOOD UREA NITROGEN 7 mg/dL (7-18)
[2016-12-20 15:41] LABS: ASPARTATE AMINO TRANSFERASE 104 U/L (15-37)
[2016-12-20 15:43] LABS: HEMATOCRIT 39.4 % (39.2-51.8); HEMOGLOBIN 12.9 g/dL (13.7-18.0); WHITE BLOOD COUNT 4.8 x10^3/uL (3.4-10)
[2016-12-20 15:44] LABS: ACETAMINOPHEN < 2 mcg/mL (10-30); ANISOCYTOSIS 1+; OVALOCYTES 1+
[2016-12-20 15:45] LABS: LARGE PLATELETS 1+; POLYCHROMASIA 1+
[2016-12-20 16:29] LABS: DAU SCREEN DISCLAIMER
[2016-12-20] MEDS ORDERED: LORazepam 1MG TABLET ONE (16:29)
[2016-12-20] MEDS ORDERED: LORazepam 1MG TABLET PO ONE (16:30)
[2016-12-20 17:28] VITALS: BP 164/90
== END 2016-12-20 17:30 | disposition home or self-care (01) ==
LOC: ED 16:30
DX: S00.33XA Contusion of nose, initial encounter (principal); F10.129 Alcohol abuse with intoxication, unspecified; E03.9 Hypothyroidism, unspecified; I25.2 Old myocardial infarction; I25.10 Atherosclerotic heart disease of native coronary artery without angina pectoris; J44.9 Chronic obstructive pulmonary disease, unspecified; I12.9 Hypertensive chronic kidney disease with stage 1 through stage 4 chronic kidney disease, or unspecified chronic kidney disease; N18.4 Chronic kidney disease, stage 4 (severe); I48.0 Paroxysmal atrial fibrillation; X58.XXXA Exposure to other specified factors, initial encounter; Y93.89 Activity, other specified; Y92.89 Other specified places as the place of occurrence of the external cause; Y99.8 Other external cause status
CPT/HCPCS: 10060; 36415; 80053; 80307; 80329; 83690; 85025; G0480

== ENCOUNTER 2017-10-08 16:44 | Inpatient (IN) | payer MEDICAID ==
[~2017-10-08] VITALS: Ht 177.8 cm; Wt 100.1 kg
[~2017-10-08 16:44] MED LIST changes: +ETOMIDATE 20 MG/10 ML ONE; -METF500T4 PO; +METF500T5 PO; +NICO-487 TD; -NICO1PAT16 TD; +PROPOFOL 10 MG/ML, 100ML IV ONE; +PROPOFOL 10 MG/ML, 20ML ONE; +SUCCINYLCHOLINE 20 MG/ML, 10ML ONE; +VECURONIUM 10 MG ONE
[2017-10-08] MEDS ORDERED: NITROGLYCERIN IV PRN (16:53)
[2017-10-08] MEDS ORDERED: D5W PMX IV PRN (16:53)
[2017-10-08] MEDS ORDERED: ALBUTEROL/IPRATROPIUM 2.5MG/0.5MG, 3 ML ONE ×2 (16:57→19:36)
[2017-10-08] MEDS ORDERED: ETOMIDATE 20 MG/10 ML IV ONE (17:00)
[2017-10-08] MEDS ORDERED: methylPREDNISolone SOD SUCC 125 MG/2 ML IVP ONE (17:00)
[2017-10-08] MEDS ORDERED: PLEASE ENTER ALLERGIES MC SCH (17:00)
[2017-10-08] MEDS ORDERED: VECURONIUM 10 MG IVPush ONE (17:00)
[2017-10-08] MEDS ORDERED: SODIUM CHLORIDE FLUSH 10ML SYR IVF ONE (17:00)
[2017-10-08] MEDS ORDERED: SUCCINYLCHOLINE 20 MG/ML, 10ML IVPush ONE (17:00)
[2017-10-08] MEDS: ALBUTEROL/IPRATROPIUM 2.5MG/0.5MG, 3 ML NPPB SCH ×3 (17:09→22:30)
[2017-10-08] MEDS ORDERED: methylPREDNISolone SOD SUCC 125 MG/2 ML ONE (17:16)
[2017-10-08 17:25] LABS: BASOPHILS # (AUTO) 0.01 x10^3/uL (0-0.1); BASOPHILS % (AUTO) 0 % (0-1); EOSINOPHILS # (AUTO) 0.01 x10^3/uL (0-0.4); EOSINOPHILS % (AUTO) 0 % (1-7); LYMPHOCYTES # (AUTO) 0.97 x10^3/uL (1-3.4); LYMPHOCYTES % (AUTO) 13 % (22-44); MD NO; MEAN CORPUSCULAR HEMOGLOBIN 28.7 pg (27.5-34.5); MEAN CORPUSCULAR HGB CONC 31.9 g/dL (33.2-36.2); MEAN CORPUSCULAR VOLUME 89.8 fL (81-97); MEAN PLATELET VOLUME 10.6 fL (7.4-10.4); MONOCYTES # (AUTO) 0.08 x10^3/uL (0.2-0.8); MONOCYTES % (AUTO) 1 % (2-9); NEUTROPHILS # (AUTO) 6.33 x10^3/uL (1.8-6.8); NEUTROPHILS % (AUTO) 86 % (42-75); PLATELET COUNT 122 x10^3/uL (130-400); RED BLOOD COUNT 5.28 x10^6/uL (4.38-5.82); RED CELL DISTRIBUTION WIDTH 17.2 % (9.4-14.8)
[2017-10-08] MEDS ORDERED: ACETAMINOPHEN 650 MG SUPP ONE (17:27)
[2017-10-08] MEDS ORDERED: ACETAMINOPHEN 650 MG SUPP PR ONE (17:30)
[2017-10-08] MEDS ORDERED: PIPERACILLIN/TAZO/PMX 3.375GM 50 ML IVPB ONE (17:30)
[2017-10-08 17:34] LABS: INTERNATIONAL NORMALIZED RATIO 1.12 (0.93-1.1); PROTHROMBIN TIME 11.5 Seconds (9.6-11.5)
[2017-10-08] MEDS: PROPOFOL 100 ML IV PRN ×2 (17:36→22:17)
[2017-10-08 17:38] LABS: ALANINE AMINOTRANSFERASE 148 U/L (12-78); ALBUMIN 2.8 g/dL (3.4-5.0); ANION GAP 8 mmol/L (5-15); CALCIUM 7.5 mg/dL (8.5-10.1); CHLORIDE 102 mmol/L (98-107); CREATININE 1.44 mg/dL (0.7-1.3)
[2017-10-08 17:42] LABS: ALKALINE PHOSPHATASE 84 U/L (45-117); BILIRUBIN,TOTAL 0.9 mg/dL (0.2-1.0); TOTAL PROTEIN 7.5 g/dL (6.4-8.2); TROPONIN I 0.031 ng/mL (0.000-0.045)
[2017-10-08] MEDS ORDERED: PIPERACILLIN/TAZO/PMX 3.375GM 50 ML ONE (17:58)
[2017-10-08] MEDS ORDERED: SODIUM CHLORIDE 0.9% 1,000ML IVBOLUS ONE (18:30)
[2017-10-08] MEDS ORDERED: AMOX1TAB64 PO (18:39)
[2017-10-08] MEDS ORDERED: ATOR40TA PO (18:41)
[2017-10-08] MEDS ORDERED: LISI1TAB5 PO (18:42)
[2017-10-08] MEDS ORDERED: BUPR1FIL3 SL (18:42)
[2017-10-08] MEDS ORDERED: METO25TA35 PO (18:43)
[2017-10-08] MEDS ORDERED: PRED-402 PO (18:45)
[2017-10-08] MEDS ORDERED: SPIR25TA3 PO (18:45)
[2017-10-08 18:49] LABS: MICROSCOPIC INDICATED
[2017-10-08 19:07] LABS: CULTURE INDICATED? NO
[2017-10-08] MEDS ORDERED: LACTATED RINGERS 1,000 ML IVBOLUS ONE (20:00)
[2017-10-08] MEDS ORDERED: NOREPINEPHRINE 4 MG in SODIUM CHLORIDE 0.9% 246 ML IV PRN (20:00)
[2017-10-08] MEDS ORDERED: PHARMACY MAY ADJ FOR RENAL FX MC PRN (20:00)
[2017-10-08] MEDS ORDERED: VASOPRESSIN 100 UNIT in SODIUM CHLORIDE 0.9% 495 ML IV PRN (20:00)
[2017-10-08] MEDS ORDERED: ONDANSETRON 2MG/ML, 2ML IVPush PRN (20:00)
[2017-10-08] MEDS ORDERED: PIPERACILLIN/TAZO/PMX 3.375GM 50 ML IV SCH (20:00)
[2017-10-08] MEDS ORDERED: VANCOMYCIN PER PHARMACY MC PRN (20:00)
[2017-10-08 20:05] LABS: FREE T4 (FREE THYROXINE) 0.42 ng/dL (0.76-1.46)
[2017-10-08] MEDS ORDERED: PROPOFOL 100 ML IV ONE (20:11)
[2017-10-08] MEDS ORDERED: LIDOCAINE-MPF 1%, 2ML ENDO PRN (20:30)
[2017-10-08] MEDS ORDERED: PHARMACOKINETIC CONSULTATION MC ONE (21:00)
[2017-10-08] MEDS ORDERED: PHARMACOKINETIC MONITORING MC PRN (21:00)
[2017-10-08] MEDS: MEROPENEM 1 GM in SODIUM CHLORIDE 0.9% 100 ML IV SCH (21:08)
[2017-10-08] MEDS: methylPREDNISolone SOD SUCC 125 MG/2 ML IVPush SCH (21:27)
[2017-10-08] MEDS: VANCOMYCIN 1,800 MG in SODIUM CHLORIDE 0.9% 250 ML IV SCH (22:17)
[2017-10-08] MEDS ORDERED: ALBUTEROL/IPRATROPIUM 2.5MG/0.5MG, 3 ML NPPB PRN (22:30)
[2017-10-08 22:42] VITALS: BP 114/69
[2017-10-08 22:52] VITALS: BP 114/69
[2017-10-09] MEDS: ALBUTEROL/IPRATROPIUM 2.5MG/0.5MG, 3 ML NPPB SCH ×6 (02:26→22:30)
[2017-10-09] MEDS: methylPREDNISolone SOD SUCC 125 MG/2 ML IVPush SCH ×4 (03:16→21:44)
[2017-10-09] MEDS: PROPOFOL 100 ML IV PRN ×5 (03:26→18:18)
[2017-10-09 04:00] VITALS: BP 102/66
[2017-10-09 04:56] LABS: BASOPHILS % (AUTO) 0 % (0-1); EOSINOPHILS % (AUTO) 0 % (1-7); LYMPHOCYTES # (AUTO) 0.28 x10^3/uL (1-3.4); LYMPHOCYTES % (AUTO) 5 % (22-44); MD NO; MEAN CORPUSCULAR HEMOGLOBIN 28.6 pg (27.5-34.5); MEAN CORPUSCULAR VOLUME 89.3 fL (81-97); MEAN PLATELET VOLUME 10.7 fL (7.4-10.4); MONOCYTES # (AUTO) 0.08 x10^3/uL (0.2-0.8); MONOCYTES % (AUTO) 1 % (2-9); NEUTROPHILS # (AUTO) 5.57 x10^3/uL (1.8-6.8); NEUTROPHILS % (AUTO) 94 % (42-75); PLATELET COUNT 106 x10^3/uL (130-400); RED BLOOD COUNT 4.45 x10^6/uL (4.38-5.82); RED CELL DISTRIBUTION WIDTH 17.4 % (9.4-14.8)
[2017-10-09 05:03] LABS: ALBUMIN 2.2 g/dL (3.4-5.0); ANION GAP 8 mmol/L (5-15); CALCIUM 6.8 mg/dL (8.5-10.1); CHLORIDE 107 mmol/L (98-107)
[2017-10-09 05:17] LABS: ALANINE AMINOTRANSFERASE 105 U/L (12-78); ALKALINE PHOSPHATASE 57 U/L (45-117); CREATININE 1.41 mg/dL (0.7-1.3)
[2017-10-09] MEDS: POTASSIUM CHLORIDE 20 MEQ, MAGNESIUM SULFATE 1 GM, FOLIC ACID 1 MG, THIAMINE 200 MG, MV... IV SCH (08:24)
[2017-10-09] MEDS: MEROPENEM 1 GM in SODIUM CHLORIDE 0.9% 100 ML IV SCH ×3 (08:40→21:44)
[2017-10-09] MEDS: APIXABAN 5 MG TABLET PO SCH ×2 (09:38→21:45)
[2017-10-09] MEDS: VANCOMYCIN 1,800 MG in SODIUM CHLORIDE 0.9% 250 ML IV SCH (21:44)
[2017-10-10] MEDS: PROPOFOL 100 ML IV PRN ×2 (00:10→03:35)
[2017-10-10] MEDS: ALBUTEROL/IPRATROPIUM 2.5MG/0.5MG, 3 ML NPPB SCH ×6 (02:30→22:47)
[2017-10-10] MEDS: methylPREDNISolone SOD SUCC 125 MG/2 ML IVPush SCH ×4 (03:35→19:34)
[2017-10-10 04:00] VITALS: BP 117/71
[2017-10-10 04:29] LABS: BASOPHILS % (AUTO) 2 % (0-1); EOSINOPHILS % (AUTO) 0 % (1-7); LYMPHOCYTES # (AUTO) 0.33 x10^3/uL (1-3.4); LYMPHOCYTES % (AUTO) 7 % (22-44); MD NO; MEAN CORPUSCULAR HEMOGLOBIN 28.8 pg (27.5-34.5); MEAN CORPUSCULAR HGB CONC 32.6 g/dL (33.2-36.2); MEAN CORPUSCULAR VOLUME 88.2 fL (81-97); MEAN PLATELET VOLUME 10.6 fL (7.4-10.4); MONOCYTES # (AUTO) 0.23 x10^3/uL (0.2-0.8); MONOCYTES % (AUTO) 5 % (2-9); NEUTROPHILS # (AUTO) 4.06 x10^3/uL (1.8-6.8); NEUTROPHILS % (AUTO) 86 % (42-75); PLATELET COUNT 104 x10^3/uL (130-400); RED BLOOD COUNT 4.35 x10^6/uL (4.38-5.82); RED CELL DISTRIBUTION WIDTH 17.3 % (9.4-14.8)
[2017-10-10 04:35] LABS: ANION GAP 6 mmol/L (5-15); CALCIUM 7.3 mg/dL (8.5-10.1); CHLORIDE 112 mmol/L (98-107); CREATININE 1.25 mg/dL (0.7-1.3)
[2017-10-10 04:37] LABS: ALANINE AMINOTRANSFERASE 105 U/L (12-78); ALKALINE PHOSPHATASE 51 U/L (45-117); BILIRUBIN,TOTAL 0.8 mg/dL (0.2-1.0); TOTAL PROTEIN 5.8 g/dL (6.4-8.2)
[2017-10-10] MEDS: POTASSIUM CHLORIDE 20 MEQ, MAGNESIUM SULFATE 1 GM, FOLIC ACID 1 MG, THIAMINE 200 MG, MV... IV SCH (06:22)
[2017-10-10] MEDS: APIXABAN 5 MG TABLET PO SCH ×2 (08:30→20:23)
[2017-10-10] MEDS: MEROPENEM 1 GM in SODIUM CHLORIDE 0.9% 100 ML IV SCH ×3 (08:34→20:23)
[2017-10-10] MEDS ORDERED: KETOROLAC 30 MG/1 ML IVPush PRN (14:30)
[2017-10-10] MEDS: LABETALOL 5MG/ML, 20ML IVPush PRN (20:23)
[2017-10-11] MEDS: LABETALOL 5MG/ML, 20ML IVPush PRN ×2 (02:12→09:44)
[2017-10-11] MEDS: methylPREDNISolone SOD SUCC 125 MG/2 ML IVPush SCH ×2 (02:12→09:10)
[2017-10-11] MEDS: ALBUTEROL/IPRATROPIUM 2.5MG/0.5MG, 3 ML NPPB SCH ×4 (03:10→13:15)
[2017-10-11 04:40] VITALS: BP 183/106
[2017-10-11 05:16] LABS: ALANINE AMINOTRANSFERASE 179 U/L (12-78); ALBUMIN 2.2 g/dL (3.4-5.0); ANION GAP 7 mmol/L (5-15); CALCIUM 7.7 mg/dL (8.5-10.1); CHLORIDE 109 mmol/L (98-107); CREATININE 1.31 mg/dL (0.7-1.3)
[2017-10-11 05:18] LABS: ALKALINE PHOSPHATASE 75 U/L (45-117); BILIRUBIN,TOTAL 0.6 mg/dL (0.2-1.0)
[2017-10-11 06:14] LABS: BASOPHILS # (AUTO) 0.06 x10^3/uL (0-0.1); BASOPHILS % (AUTO) 1 % (0-1); EOSINOPHILS % (AUTO) 0 % (1-7); LYMPHOCYTES # (AUTO) 0.25 x10^3/uL (1-3.4); LYMPHOCYTES % (AUTO) 4 % (22-44); MD NO; MEAN CORPUSCULAR HEMOGLOBIN 28.9 pg (27.5-34.5); MEAN CORPUSCULAR HGB CONC 32.6 g/dL (33.2-36.2); MEAN CORPUSCULAR VOLUME 88.4 fL (81-97); MEAN PLATELET VOLUME 10.8 fL (7.4-10.4); MONOCYTES # (AUTO) 0.25 x10^3/uL (0.2-0.8); MONOCYTES % (AUTO) 4 % (2-9); NEUTROPHILS # (AUTO) 6.02 x10^3/uL (1.8-6.8); NEUTROPHILS % (AUTO) 92 % (42-75); PLATELET COUNT 127 x10^3/uL (130-400); RED BLOOD COUNT 4.33 x10^6/uL (4.38-5.82); RED CELL DISTRIBUTION WIDTH 17.5 % (9.4-14.8)
[2017-10-11] MEDS: POTASSIUM CHLORIDE 20 MEQ, MAGNESIUM SULFATE 1 GM, FOLIC ACID 1 MG, THIAMINE 200 MG, MV... IV SCH (06:57)
[2017-10-11] MEDS ORDERED: LEVOTHYROXINE 50 MCG TABLET PO SCH (07:30)
[2017-10-11] MEDS ORDERED: SODIUM PHOSPHATE 10 MMOL in SODIUM CHLORIDE 0.9% 500 ML IV ONE (09:00)
[2017-10-11] MEDS: APIXABAN 5 MG TABLET PO SCH (09:10)
[2017-10-11] MEDS: MEROPENEM 1 GM in SODIUM CHLORIDE 0.9% 100 ML IV SCH ×2 (09:11→16:56)
[2017-10-11 10:44] VITALS: BP 178/100
[2017-10-11] MEDS ORDERED: LISINOPRIL 20 MG TABLET PO SCH (11:00)
[2017-10-11] MEDS ORDERED: METOPROLOL TARTRATE 25 MG TABLET PO SCH (11:00)
[2017-10-11] MEDS ORDERED: HYDROCHLOROTHIAZIDE 12.5 MG CAPSULE PO SCH (11:00)
[2017-10-11 12:43] VITALS: BP 172/101
[2017-10-11] MEDS ORDERED: hydrALAzine 20 MG/ML, 1ML IV PRN (14:00)
[2017-10-11] MEDS ORDERED: LABETALOL 5MG/ML, 20ML IVPush PRN (14:00)
[2017-10-11 16:43] VITALS: BP 186/128
[2017-10-11] MEDS ORDERED: methylPREDNISolone SOD SUCC 40 MG/ML IVPush SCH (21:00)
[2017-10-16] MEDS ORDERED: APIXABAN 5 MG TABLET PO SCH (09:00)
== END 2017-10-11 18:32 | disposition left against medical advice (07) | DRG 871 ==
LOC: MERGE 16:44 → EDBD 16:44 → ED 19:31 → EDIP 19:33 → CCU 20:36 → 4NOR 10-11 10:40
PROVIDERS: ADMIT Hospitalist; ATTEND Hospitalist
PROC: 02HV33Z Insertion of Infusion Device into Superior Vena Cava, Percutaneous Approach (ICD-10-PCS; principal; 2017-10-08)
PROC: 0BH17EZ Insertion of Endotracheal Airway into Trachea, Via Natural or Artificial Opening (ICD-10-PCS; 2017-10-08)
PROC: 5A1945Z Respiratory Ventilation, 24-96 Consecutive Hours (ICD-10-PCS; 2017-10-08)
PROC: 0T9B70Z Drainage of Bladder with Drainage Device, Via Natural or Artificial Opening (ICD-10-PCS; 2017-10-08)
PROC: 5A09357 Assistance with Respiratory Ventilation, Less than 24 Consecutive Hours, Continuous Positive Airway Pressure (ICD-10-PCS; 2017-10-08)
DX: A41.9 Sepsis, unspecified organism (principal); E43 Unspecified severe protein-calorie malnutrition; J18.0 Bronchopneumonia, unspecified organism; J96.21 Acute and chronic respiratory failure with hypoxia; R65.21 Severe sepsis with septic shock; B18.1 Chronic viral hepatitis B without delta-agent; I13.0 Hypertensive heart and chronic kidney disease with heart failure and stage 1 through stage 4 chronic kidney disease, or unspecified chronic kidney disease; E87.2 Acidosis; I16.9 Hypertensive crisis, unspecified; I50.42 Chronic combined systolic (congestive) and diastolic (congestive) heart failure; I67.4 Hypertensive encephalopathy; J44.1 Chronic obstructive pulmonary disease with (acute) exacerbation; J44.0 Chronic obstructive pulmonary disease with (acute) lower respiratory infection; N17.9 Acute kidney failure, unspecified; N18.4 Chronic kidney disease, stage 4 (severe); Z99.11 Dependence on respirator [ventilator] status; I82.412 Acute embolism and thrombosis of left femoral vein; B18.2 Chronic viral hepatitis C; D69.6 Thrombocytopenia, unspecified; E03.9 Hypothyroidism, unspecified; F10.10 Alcohol abuse, uncomplicated; F17.210 Nicotine dependence, cigarettes, uncomplicated; I25.10 Atherosclerotic heart disease of native coronary artery without angina pectoris; I25.5 Ischemic cardiomyopathy; I34.0 Nonrheumatic mitral (valve) insufficiency; I48.0 Paroxysmal atrial fibrillation; K70.9 Alcoholic liver disease, unspecified; K74.60 Unspecified cirrhosis of liver; M79.7 Fibromyalgia; D50.9 Iron deficiency anemia, unspecified; Y95 Nosocomial condition; Z68.31 Body mass index [BMI] 31.0-31.9, adult; Z82.49 Family history of ischemic heart disease and other diseases of the circulatory system; Z82.5 Family history of asthma and other chronic lower respiratory diseases; Z86.14 Personal history of Methicillin resistant Staphylococcus aureus infection; Z86.19 Personal history of other infectious and parasitic diseases; Z86.718 Personal history of other venous thrombosis and embolism; Z86.72 Personal history of thrombophlebitis; Z86.73 Personal history of transient ischemic attack (TIA), and cerebral infarction without residual deficits; Z91.19 Patient's noncompliance with other medical treatment and regimen; Z99.81 Dependence on supplemental oxygen; Z90.89 Acquired absence of other organs; Z88.8 Allergy status to other drugs, medicaments and biological substances
CPT/HCPCS: 31500; 36415; 36569; 36600; 70450; 71045; 80053; 80307; 81001; 82803; 83605; 83735; 83880; 84100; 84145; 84439; 84443; 84478; 84484; 85025; 85610; 85730; 87040; 87070; 87081; 87205; 93005; 93306; 93970; 94002; 94003; 94640; 96365; 96375; C1729; J1885; J2185; J2543; J2704; J3370; J3411; J3475; J3480; J7042; J7620; J0330; J2930; J7030; J7040; J7050

== ENCOUNTER 2017-11-15 01:07 | Inpatient (IN) | payer MEDICAID ==
[~2017-11-15] VITALS: Ht 182.9 cm; Wt 88.0 kg
[~2017-11-15 01:07] MED LIST changes: +ATOR40TA PO; +BUPR1FIL3 SL; -ETOMIDATE 20 MG/10 ML ONE; -IPRA3AMP NEB; -IPRA3AMP NPPB; +IPRA3AMP30 NEB; +IPRA3AMP30 NPPB; +LISI1TAB5 PO; +METO25TA35 PO; +PRED-402 PO; -PROPOFOL 10 MG/ML, 100ML IV ONE; -PROPOFOL 10 MG/ML, 20ML ONE; +SPIR25TA5 PO; -SUCCINYLCHOLINE 20 MG/ML, 10ML ONE; -THIA100T6 PO; +THIA100T67 PO; -VECURONIUM 10 MG ONE
[2017-11-15] MEDS ORDERED: LIDOCAINE-MPF 2% ,5ML ONE (01:41)
[2017-11-15] MEDS ORDERED: LIDOCAINE 2%, 20ML SQ ONE (02:00)
[2017-11-15] MEDS ORDERED: AMPICILLIN/SULBACTAM 3 GM in SODIUM CHLORIDE 0.9% 100 ML IV ONE (03:00)
[2017-11-15] MEDS ORDERED: SODIUM CHLORIDE FLUSH 10ML SYR IVF ONE (03:00)
[2017-11-15 03:13] LABS: BASOPHILS # (AUTO) 0.06 x10^3/uL (0-0.1); BASOPHILS % (AUTO) 1 % (0-1); EOSINOPHILS # (AUTO) 0.14 x10^3/uL (0-0.4); EOSINOPHILS % (AUTO) 2 % (1-7); LYMPHOCYTES # (AUTO) 1.55 x10^3/uL (1-3.4); LYMPHOCYTES % (AUTO) 24 % (22-44); MD NO; MEAN CORPUSCULAR HEMOGLOBIN 29.7 pg (27.5-34.5); MEAN PLATELET VOLUME 9.3 fL (7.4-10.4); MONOCYTES # (AUTO) 0.57 x10^3/uL (0.2-0.8); MONOCYTES % (AUTO) 9 % (2-9); NEUTROPHILS # (AUTO) 4.04 x10^3/uL (1.8-6.8); NEUTROPHILS % (AUTO) 64 % (42-75); PLATELET COUNT 121 x10^3/uL (130-400); RED BLOOD COUNT 4.63 x10^6/uL (4.38-5.82); RED CELL DISTRIBUTION WIDTH 18.1 % (9.4-14.8)
[2017-11-15 03:23] LABS: ALBUMIN 2.7 g/dL (3.4-5.0); ANION GAP 8 mmol/L (5-15); CALCIUM 8.1 mg/dL (8.5-10.1); CHLORIDE 108 mmol/L (98-107); CREATININE 0.97 mg/dL (0.7-1.3)
[2017-11-15] MEDS ORDERED: SODIUM CHLORIDE 0.9% 1,000 ML IV SCH (04:02)
[2017-11-15] MEDS: AMPICILLIN/SULBACTAM 3 GM in SODIUM CHLORIDE 0.9% 100 ML IV SCH ×4 (04:13→21:56)
[2017-11-15] MEDS ORDERED: ONDANSETRON 2MG/ML, 2ML IVPush PRN (04:30)
[2017-11-15 04:45] VITALS: BP 137/87
[2017-11-15 04:49] VITALS: BP 137/87
[2017-11-15] MEDS ORDERED: PHARMACOKINETIC MONITORING MC PRN (05:30)
[2017-11-15] MEDS ORDERED: VANCOMYCIN PER PHARMACY MC PRN (05:30)
[2017-11-15] MEDS ORDERED: PHARMACOKINETIC CONSULTATION MC ONE (05:30)
[2017-11-15] MEDS: VANCOMYCIN 1,700 MG in SODIUM CHLORIDE 0.9% 250 ML IV SCH ×2 (05:48→23:14)
[2017-11-15 07:55] VITALS: BP 132/84
[2017-11-15] MEDS: ACETAMINOPHEN 325 MG TABLET PO PRN ×2 (10:12→21:56)
[2017-11-15 13:42] VITALS: BP 173/102
[2017-11-15] MEDS ORDERED: LISI-170 PO (15:01)
[2017-11-15] MEDS ORDERED: METO25TA35 PO (15:01)
[2017-11-15] MEDS ORDERED: ASPI-496 PO (15:01)
[2017-11-15] MEDS ORDERED: BUPR1FIL3 SL (15:01)
[2017-11-15] MEDS ORDERED: ALBUTEROL/IPRATROPIUM 2.5MG/0.5MG, 3 ML ONE (16:42)
[2017-11-15] MEDS: hydrALAzine 20 MG/ML, 1ML IVPush PRN (16:52)
[2017-11-15] MEDS: LORazepam 2 MG/ML, 1ML IVPush PRN ×2 (18:21→23:17)
[2017-11-15] MEDS ORDERED: FUROSEMIDE 20 MG/2 ML IV ONE (18:30)
[2017-11-15] MEDS: ALBUTEROL/IPRATROPIUM 2.5MG/0.5MG, 3 ML NPPB SCH (18:36)
[2017-11-15 20:12] VITALS: BP 125/89
[2017-11-15] MEDS: METOPROLOL TARTRATE 25 MG TABLET PO SCH (21:56)
[2017-11-16 01:10] VITALS: BP 191/118
[2017-11-16] MEDS: hydrALAzine 20 MG/ML, 1ML IVPush PRN (01:28)
[2017-11-16] MEDS: AMPICILLIN/SULBACTAM 3 GM in SODIUM CHLORIDE 0.9% 100 ML IV SCH ×3 (04:42→18:19)
[2017-11-16] MEDS: LORazepam 2 MG/ML, 1ML IVPush PRN (04:53)
[2017-11-16 04:58] VITALS: BP 165/53
[2017-11-16 05:12] LABS: BASOPHILS # (AUTO) 0.02 x10^3/uL (0-0.1); BASOPHILS % (AUTO) 1 % (0-1); EOSINOPHILS # (AUTO) 0.03 x10^3/uL (0-0.4); EOSINOPHILS % (AUTO) 1 % (1-7); LYMPHOCYTES # (AUTO) 0.71 x10^3/uL (1-3.4); LYMPHOCYTES % (AUTO) 21 % (22-44); MD NO; MEAN CORPUSCULAR HEMOGLOBIN 29.6 pg (27.5-34.5); MEAN CORPUSCULAR HGB CONC 32.9 g/dL (33.2-36.2); MEAN CORPUSCULAR VOLUME 89.8 fL (81-97); MEAN PLATELET VOLUME 10.4 fL (7.4-10.4); MONOCYTES % (AUTO) 9 % (2-9); NEUTROPHILS # (AUTO) 2.42 x10^3/uL (1.8-6.8); NEUTROPHILS % (AUTO) 70 % (42-75); PLATELET COUNT 112 x10^3/uL (130-400); RED BLOOD COUNT 5.22 x10^6/uL (4.38-5.82); RED CELL DISTRIBUTION WIDTH 18.1 % (9.4-14.8)
[2017-11-16 05:19] LABS: ALANINE AMINOTRANSFERASE 59 U/L (12-78); ANION GAP 7 mmol/L (5-15); CALCIUM 8.5 mg/dL (8.5-10.1); CHLORIDE 103 mmol/L (98-107)
[2017-11-16 05:21] LABS: ALKALINE PHOSPHATASE 115 U/L (45-117); BILIRUBIN,TOTAL 1.2 mg/dL (0.2-1.0); CREATININE 1.01 mg/dL (0.7-1.3); TOTAL PROTEIN 8.4 g/dL (6.4-8.2)
[2017-11-16] MEDS ORDERED: MAGNESIUM SULFATE PMX 2GM/50ML 50 ML IV ONE ×2 (07:00→14:30)
[2017-11-16] MEDS: ALBUTEROL/IPRATROPIUM 2.5MG/0.5MG, 3 ML NPPB SCH ×4 (07:55→19:02)
[2017-11-16 08:13] VITALS: BP 160/58
[2017-11-16 08:43] LABS: INTERNATIONAL NORMALIZED RATIO 1.13 (0.93-1.1); PROTHROMBIN TIME 11.7 Seconds (9.6-11.5)
[2017-11-16] MEDS: NEUTRA PHOS K 250 MG TABLET PO SCH ×2 (09:21→22:04)
[2017-11-16] MEDS: ASPIRIN 81 MG TABLET EC PO SCH (09:21)
[2017-11-16] MEDS: METOPROLOL TARTRATE 25 MG TABLET PO SCH ×2 (09:23→22:05)
[2017-11-16] MEDS: LISINOPRIL 20 MG TABLET PO SCH (09:25)
[2017-11-16] MEDS ORDERED: LORazepam 0.5MG TABLET PO PRN (09:30)
[2017-11-16] MEDS ORDERED: LORazepam 1MG TABLET PO PRN ×2 (09:30)
[2017-11-16] MEDS ORDERED: LORazepam 2 MG/ML, 1ML IV PRN ×5 (09:30)
[2017-11-16 09:54] LABS: FOLATE LEVEL 8.7 ng/mL (3.1-17.5)
[2017-11-16] MEDS: MULTIVITAMINS/MINERALS TABLET PO SCH (12:02)
[2017-11-16] MEDS: THIAMINE 100MG TABLET PO SCH ×2 (12:05→22:04)
[2017-11-16] MEDS: FOLIC ACID 1 MG TABLET PO SCH (12:05)
[2017-11-16] MEDS: BUPRENORPHINE HCL/NALOXONE 8-2MG FILM SL SCH (12:07)
[2017-11-16] MEDS: FONDAPARINUX 2.5 MG/0.5 ML SQ SCH (12:09)
[2017-11-16 13:24] VITALS: BP 158/64
[2017-11-16] MEDS: VANCOMYCIN 1,700 MG in SODIUM CHLORIDE 0.9% 250 ML IV SCH (19:14)
[2017-11-16 20:00] VITALS: BP 129/82
[2017-11-16] MEDS: ATORVASTATIN 40 MG TABLET PO SCH (22:05)
[2017-11-16 23:22] LABS: AMPHETAMINE SCREEN, URINE Negative (Negative); BARBITURATE SCREEN, URINE Negative (Negative); BENZODIAZEPINE SCREEN, URINE Positive (Negative); CANNABINOID SCREEN, URINE Negative (Negative); COCAINE SCREEN, URINE Positive (Negative); METHADONE SCREEN, URINE Negative (Negative); OPIATE SCREEN, URINE Negative (Negative)
[2017-11-17] MEDS: AMPICILLIN/SULBACTAM 3 GM in SODIUM CHLORIDE 0.9% 100 ML IV SCH ×3 (00:33→12:11)
[2017-11-17 01:45] VITALS: BP 121/75
[2017-11-17 05:43] LABS: BASOPHILS # (AUTO) 0.01 x10^3/uL (0-0.1); BASOPHILS % (AUTO) 0 % (0-1); EOSINOPHILS % (AUTO) 0 % (1-7); LYMPHOCYTES # (AUTO) 0.72 x10^3/uL (1-3.4); LYMPHOCYTES % (AUTO) 16 % (22-44); MD NO; MEAN CORPUSCULAR HEMOGLOBIN 29.6 pg (27.5-34.5); MEAN CORPUSCULAR VOLUME 89.8 fL (81-97); MEAN PLATELET VOLUME 10.6 fL (7.4-10.4); MONOCYTES # (AUTO) 0.36 x10^3/uL (0.2-0.8); MONOCYTES % (AUTO) 8 % (2-9); NEUTROPHILS # (AUTO) 3.35 x10^3/uL (1.8-6.8); NEUTROPHILS % (AUTO) 76 % (42-75); PLATELET COUNT 114 x10^3/uL (130-400); RED BLOOD COUNT 4.77 x10^6/uL (4.38-5.82); RED CELL DISTRIBUTION WIDTH 18.2 % (9.4-14.8)
[2017-11-17 05:47] LABS: ALBUMIN 2.4 g/dL (3.4-5.0); ANION GAP 8 mmol/L (5-15); CALCIUM 8.2 mg/dL (8.5-10.1); CHLORIDE 102 mmol/L (98-107)
[2017-11-17 05:50] LABS: ALANINE AMINOTRANSFERASE 46 U/L (12-78); ALKALINE PHOSPHATASE 93 U/L (45-117); BILIRUBIN,TOTAL 0.9 mg/dL (0.2-1.0); CREATININE 1.06 mg/dL (0.7-1.3); TOTAL PROTEIN 7.3 g/dL (6.4-8.2)
[2017-11-17 06:57] VITALS: BP 126/79
[2017-11-17] MEDS: ALBUTEROL/IPRATROPIUM 2.5MG/0.5MG, 3 ML NPPB SCH ×4 (07:55→19:45)
[2017-11-17] MEDS: METOPROLOL TARTRATE 25 MG TABLET PO SCH ×2 (09:43→21:13)
[2017-11-17] MEDS: LISINOPRIL 20 MG TABLET PO SCH (09:43)
[2017-11-17] MEDS: THIAMINE 100MG TABLET PO SCH ×2 (09:43→21:14)
[2017-11-17] MEDS: NEUTRA PHOS K 250 MG TABLET PO SCH ×2 (09:43→21:13)
[2017-11-17] MEDS: FOLIC ACID 1 MG TABLET PO SCH (09:43)
[2017-11-17] MEDS: ASPIRIN 81 MG TABLET EC PO SCH (09:43)
[2017-11-17] MEDS: MULTIVITAMINS/MINERALS TABLET PO SCH (09:43)
[2017-11-17] MEDS: GUAIFENESIN 200 MG TABLET PO SCH ×3 (09:44→21:13)
[2017-11-17] MEDS: FONDAPARINUX 2.5 MG/0.5 ML SQ SCH (09:44)
[2017-11-17] MEDS: BUPRENORPHINE HCL/NALOXONE 8-2MG FILM SL SCH (09:46)
[2017-11-17] MEDS: VANCOMYCIN 1,700 MG in SODIUM CHLORIDE 0.9% 250 ML IV SCH (13:08)
[2017-11-17 14:01] VITALS: BP 129/83
[2017-11-17] MEDS: CEPHALEXIN 500 MG CAPSULE PO SCH ×2 (15:31→21:14)
[2017-11-17 19:13] VITALS: BP 144/76
[2017-11-17] MEDS: DOXYCYCLINE 100MG CAP PO SCH (21:13)
[2017-11-17] MEDS: ATORVASTATIN 40 MG TABLET PO SCH (21:14)
[2017-11-18 01:53] VITALS: BP 173/96
[2017-11-18 05:45] LABS: CHLORIDE 102 mmol/L (98-107)
[2017-11-18] MEDS: GUAIFENESIN 200 MG TABLET PO SCH ×4 (05:51→20:29)
[2017-11-18] MEDS: CEPHALEXIN 500 MG CAPSULE PO SCH ×4 (05:51→20:29)
[2017-11-18 05:52] LABS: ALANINE AMINOTRANSFERASE 56 U/L (12-78); ALBUMIN 2.4 g/dL (3.4-5.0); ALKALINE PHOSPHATASE 103 U/L (45-117); ANION GAP 6 mmol/L (5-15); BILIRUBIN,TOTAL 0.5 mg/dL (0.2-1.0); CALCIUM 8.1 mg/dL (8.5-10.1); CREATININE 1.08 mg/dL (0.7-1.3); TOTAL PROTEIN 7.1 g/dL (6.4-8.2)
[2017-11-18 05:58] LABS: MEAN CORPUSCULAR HEMOGLOBIN 29.2 pg (27.5-34.5); MEAN CORPUSCULAR HGB CONC 32.6 g/dL (33.2-36.2); MEAN CORPUSCULAR VOLUME 89.5 fL (81-97); MEAN PLATELET VOLUME 11.1 fL (7.4-10.4); PLATELET COUNT 99 x10^3/uL (130-400); RED BLOOD COUNT 4.88 x10^6/uL (4.38-5.82); RED CELL DISTRIBUTION WIDTH 17.9 % (9.4-14.8)
[2017-11-18 06:36] LABS: BASOPHILS # (AUTO) 0.02 x10^3/uL (0-0.1); BASOPHILS % (AUTO) 0 % (0-1); EOSINOPHILS # (AUTO) 0.01 x10^3/uL (0-0.4); EOSINOPHILS % (AUTO) 0 % (1-7); LYMPHOCYTES # (AUTO) 0.97 x10^3/uL (1-3.4); LYMPHOCYTES % (AUTO) 17 % (22-44); MD SCAN; MONOCYTES # (AUTO) 0.27 x10^3/uL (0.2-0.8); MONOCYTES % (AUTO) 5 % (2-9); NEUTROPHILS # (AUTO) 4.51 x10^3/uL (1.8-6.8); NEUTROPHILS % (AUTO) 78 % (42-75)
[2017-11-18] MEDS: ALBUTEROL/IPRATROPIUM 2.5MG/0.5MG, 3 ML NPPB SCH ×4 (07:05→19:39)
[2017-11-18 07:44] VITALS: BP 164/94
[2017-11-18] MEDS: NEUTRA PHOS K 250 MG TABLET PO SCH ×2 (09:30→20:29)
[2017-11-18] MEDS: LISINOPRIL 20 MG TABLET PO SCH (09:30)
[2017-11-18] MEDS: MULTIVITAMINS/MINERALS TABLET PO SCH (09:31)
[2017-11-18] MEDS: METOPROLOL TARTRATE 25 MG TABLET PO SCH ×2 (09:31→20:30)
[2017-11-18] MEDS: FOLIC ACID 1 MG TABLET PO SCH (09:31)
[2017-11-18] MEDS: THIAMINE 100MG TABLET PO SCH ×2 (09:31→20:29)
[2017-11-18] MEDS: ASPIRIN 81 MG TABLET EC PO SCH (09:31)
[2017-11-18] MEDS: DOXYCYCLINE 100MG CAP PO SCH ×2 (09:31→20:30)
[2017-11-18] MEDS: FONDAPARINUX 2.5 MG/0.5 ML SQ SCH (09:32)
[2017-11-18] MEDS: BUPRENORPHINE HCL/NALOXONE 8-2MG FILM SL SCH (09:32)
[2017-11-18] MEDS ORDERED: AMLODIPINE 5 MG TABLET PO SCH (11:00)
[2017-11-18 11:50] VITALS: BP 150/93
[2017-11-18 14:58] VITALS: BP 151/80
[2017-11-18 17:21] VITALS: BP 156/93
[2017-11-18 19:00] VITALS: BP 153/89
[2017-11-18] MEDS: ATORVASTATIN 40 MG TABLET PO SCH (20:29)
[2017-11-19 03:32] VITALS: BP 178/102
[2017-11-19] MEDS ORDERED: ENALAPRIL 2.5MG TABLET PO PRN (04:00)
[2017-11-19 05:32] VITALS: BP 183/116
[2017-11-19 05:34] LABS: MEAN CORPUSCULAR HGB CONC 32.2 g/dL (33.2-36.2); MEAN CORPUSCULAR VOLUME 90.3 fL (81-97); MEAN PLATELET VOLUME 10.7 fL (7.4-10.4); PLATELET COUNT 87 x10^3/uL (130-400); RED BLOOD COUNT 4.65 x10^6/uL (4.38-5.82)
[2017-11-19] MEDS: hydrALAzine 20 MG/ML, 1ML IVPush PRN (05:37)
[2017-11-19] MEDS: CEPHALEXIN 500 MG CAPSULE PO SCH ×2 (05:37→11:22)
[2017-11-19] MEDS: GUAIFENESIN 200 MG TABLET PO SCH ×2 (05:37→11:21)
[2017-11-19 05:43] LABS: CHLORIDE 104 mmol/L (98-107)
[2017-11-19 05:59] LABS: ALANINE AMINOTRANSFERASE 61 U/L (12-78); ALBUMIN 2.4 g/dL (3.4-5.0); ALKALINE PHOSPHATASE 93 U/L (45-117); ANION GAP 7 mmol/L (5-15); BILIRUBIN,TOTAL 0.7 mg/dL (0.2-1.0); CALCIUM 8.3 mg/dL (8.5-10.1); TOTAL PROTEIN 6.8 g/dL (6.4-8.2)
[2017-11-19 06:27] LABS: BASOPHILS # (AUTO) 0.01 x10^3/uL (0-0.1); BASOPHILS % (AUTO) 0 % (0-1); EOSINOPHILS # (AUTO) 0.01 x10^3/uL (0-0.4); EOSINOPHILS % (AUTO) 0 % (1-7); LYMPHOCYTES # (AUTO) 0.85 x10^3/uL (1-3.4); LYMPHOCYTES % (AUTO) 12 % (22-44); MD SCAN; MONOCYTES # (AUTO) 0.34 x10^3/uL (0.2-0.8); MONOCYTES % (AUTO) 5 % (2-9); NEUTROPHILS # (AUTO) 6.18 x10^3/uL (1.8-6.8); NEUTROPHILS % (AUTO) 84 % (42-75)
[2017-11-19 07:09] VITALS: BP 162/97
[2017-11-19] MEDS: ALBUTEROL/IPRATROPIUM 2.5MG/0.5MG, 3 ML NPPB SCH ×2 (07:28→11:00)
[2017-11-19] MEDS: ASPIRIN 81 MG TABLET EC PO SCH (08:55)
[2017-11-19] MEDS: DOXYCYCLINE 100MG CAP PO SCH (08:55)
[2017-11-19] MEDS: MULTIVITAMINS/MINERALS TABLET PO SCH (08:56)
[2017-11-19] MEDS: FOLIC ACID 1 MG TABLET PO SCH (08:56)
[2017-11-19] MEDS: NEUTRA PHOS K 250 MG TABLET PO SCH (08:57)
[2017-11-19] MEDS: LISINOPRIL 20 MG TABLET PO SCH (08:58)
[2017-11-19] MEDS: THIAMINE 100MG TABLET PO SCH (08:58)
[2017-11-19] MEDS: BUPRENORPHINE HCL/NALOXONE 8-2MG FILM SL SCH (08:59)
[2017-11-19] MEDS: FONDAPARINUX 2.5 MG/0.5 ML SQ SCH (08:59)
[2017-11-19] MEDS ORDERED: AMLODIPINE 5 MG TABLET PO SCH (09:00)
[2017-11-19] MEDS ORDERED: METOPROLOL TARTRATE 50 MG TABLET PO SCH (09:00)
[2017-11-19] MEDS ORDERED: GUAI200T3 PO (10:49)
[2017-11-19] MEDS ORDERED: METO50TA82 PO (10:49)
[2017-11-19] MEDS ORDERED: THIA100T67 PO (10:49)
[2017-11-19] MEDS ORDERED: CEPH-376 PO (10:49)
[2017-11-19] MEDS ORDERED: ATOR40TA78 PO (10:49)
[2017-11-19] MEDS ORDERED: FOLI-17 PO (10:49)
[2017-11-19] MEDS ORDERED: DOXY100C2 PO (10:49)
[2017-11-19] MEDS ORDERED: AMLO5TAB2 PO (10:49)
[2017-11-19] MEDS ORDERED: LISI-170 PO (10:49)
[2017-11-19] MEDS ORDERED: TIOT18CA INH (10:50)
[2017-11-19] MEDS ORDERED: PRED20TA PO (10:50)
[2017-11-19] MEDS ORDERED: ALBU18HF INH (10:52)
== END 2017-11-19 13:35 | disposition home health service (06) | DRG 602 ==
LOC: ED 03:17 → EDIP 03:30 → 3NE 04:40
PROVIDERS: ADMIT Hospitalist; ATTEND Hospitalist
PROC: 0H9BXZZ Drainage of Right Upper Arm Skin, External Approach (ICD-10-PCS; principal; 2017-11-15)
PROC: 0H9EXZZ Drainage of Left Lower Arm Skin, External Approach (ICD-10-PCS; 2017-11-15)
PROC: 0H9DXZZ Drainage of Right Lower Arm Skin, External Approach (ICD-10-PCS; 2017-11-15)
DX: L03.114 Cellulitis of left upper limb (principal); J96.21 Acute and chronic respiratory failure with hypoxia; E44.1 Mild protein-calorie malnutrition; F10.239 Alcohol dependence with withdrawal, unspecified; I13.0 Hypertensive heart and chronic kidney disease with heart failure and stage 1 through stage 4 chronic kidney disease, or unspecified chronic kidney disease; I50.42 Chronic combined systolic (congestive) and diastolic (congestive) heart failure; J44.1 Chronic obstructive pulmonary disease with (acute) exacerbation; N18.4 Chronic kidney disease, stage 4 (severe); F11.20 Opioid dependence, uncomplicated; B19.10 Unspecified viral hepatitis B without hepatic coma; Z68.26 Body mass index [BMI] 26.0-26.9, adult; L02.413 Cutaneous abscess of right upper limb; L02.414 Cutaneous abscess of left upper limb; B19.20 Unspecified viral hepatitis C without hepatic coma; L03.113 Cellulitis of right upper limb; D69.6 Thrombocytopenia, unspecified; E03.9 Hypothyroidism, unspecified; E78.5 Hyperlipidemia, unspecified; E83.39 Other disorders of phosphorus metabolism; E83.42 Hypomagnesemia; F17.210 Nicotine dependence, cigarettes, uncomplicated; F41.9 Anxiety disorder, unspecified; I25.10 Atherosclerotic heart disease of native coronary artery without angina pectoris; I25.5 Ischemic cardiomyopathy; I48.0 Paroxysmal atrial fibrillation; K74.60 Unspecified cirrhosis of liver; F10.229 Alcohol dependence with intoxication, unspecified; M79.7 Fibromyalgia; Z79.899 Other long term (current) drug therapy; Z86.14 Personal history of Methicillin resistant Staphylococcus aureus infection; Z86.19 Personal history of other infectious and parasitic diseases; Z86.718 Personal history of other venous thrombosis and embolism; Z86.72 Personal history of thrombophlebitis; Z86.73 Personal history of transient ischemic attack (TIA), and cerebral infarction without residual deficits; Z91.19 Patient's noncompliance with other medical treatment and regimen; Z99.81 Dependence on supplemental oxygen
CPT/HCPCS: 10061; 36415; 99285; J7620; 80048; 80053; 80307; 82040; 82746; 83735; 84100; 84425; 85025; 85610; 85730; 87040; 87070; 87205; 93005; 94640; J0295; J3370; J3490; J0360; J1652; J1940; J2060; J3475; J7030; J7050; J7512